=== PATIENT | female | born 1935 | race Caucasian/White ===

== ENCOUNTER 2021-09-16 15:11 | Outpatient (REF) | payer MEDICARE, MEDICAID, SELFPAY ==
[2021-09-16 15:30] LABS: MANUAL DIFF FLAG NO
[2021-09-16 15:33] LABS: Basophils Percent Auto 0.6 % (0-2); Eosinophils Absolute Auto 0.1 X10*3/uL (0.0-0.4); Eosinophils Percent Auto 1.9 % (0-4); Hematocrit 39.4 % (37.0-47.0); Hemoglobin 12.8 g/dl (12.0-16.0); Imm Gran Abs Auto 0.01 X10*3/uL (0.00-0.03); Imm Gran Pct Auto 0.1 % (0.0-0.4); Lymphocytes Absolute Auto 1.6 X10*3/uL (1.2-4.9); Lymphocytes Percent Auto 24.3 % (20-40); Mean Corpuscular HGB Conc 32.5 g/dl (31.0-35.0); Mean Corpuscular Hemoglobin 28.9 pg (27.0-33.0); Mean Corpuscular Volume 88.9 fL (80.0-98.0); Mean Platelet Volume 8.6 fL (9.4-12.3); Monocytes Absolute Auto 0.6 X10*3/uL (0.1-1.2); Monocytes Percent Auto 8.6 % (2-11); Neutrophils Absolute Auto 4.3 x10*3/uL (2.0-8.3); Neutrophils Percent Auto 64.5 % (45-73); Platelet Count 259 X10*3/uL (160-400); Red Blood Count 4.43 X10*6/uL (4.20-5.50); Red Cell Distribution Width 13.9 % (11.0-16.0); White Blood Count 6.7 X10*3/uL (4.8-10.8)
[2021-09-16 15:57] LABS: Alanine Aminotransferase 24 U/L (0-31); Albumin Level 4.3 g/dL (3.5-5.0); Alkaline Phosphatase 124 U/L (39-117); Anion Gap 14 (12-20); Aspartate Amino Transferase 33 U/L (5-31); Bilirubin Total 1.5 mg/dL (0.0-1.0); Blood Urea Nitrogen 21 mg/dL (9-16); Calcium 10.2 mg/dL (8.4-10.2); Carbon Dioxide 23 mmol/L (22-29); Chloride 109 mmol/L (96-108); Cholesterol 230 mg/dL; Estimated Glomerular Filt Rate > 60; Glucose Fasting 94 mg/dL (60-99); HDL Cholesterol 59 mg/dL; LDL Cholesterol Calculated 158 mg/dl; Potassium 3.9 mmol/L (3.3-5.1); Sodium 142 mmol/L (135-145); Triglycerides 66 mg/dL
[2021-09-16 16:12] LABS: Appearance Urine HAZY; Color Urine YELLOW; Glucose Urine UA NEG (NEG); Leukocyte Esterase Urine TRACE (NEG); Nitrite Urine NEG (NEG); Specific Gravity - Urine >= 1.030 (1.005-1.025); UACC Culture Trigger YES; Urine Blood 2+ (NEG); Urine Ketones 40 MG/DL (NEG); Urine Protein NEG (NEG-TRACE)
[2021-09-16 16:20] LABS: TSH reflex Free T4 1.24 uIU/mL (0.32-4.0); Vitamin D 25-OH Total 29.7 ng/mL (>30)
[2021-09-16 16:31] LABS: Folate > 20.0 ng/mL (> or = 4.0); Vitamin B12 817 pg/mL (200-900)
[2021-09-16 16:36] LABS: Bacteria Urine 2+ /LPF; Squamous Epithelial Cell Urine 1+ /LPF
== END 2021-09-16 15:12 | disposition home or self-care (01) ==
LOC: HO.LAB 15:11
PROVIDERS: PCP Internal Medicine; Visit Provider Internal Medicine
DX: E78.00 Pure hypercholesterolemia, unspecified (principal); R20.2 Paresthesia of skin; E55.9 Vitamin D deficiency, unspecified; I10 Essential (primary) hypertension
CPT/HCPCS: 36415; 80053; 80061; 81001; 81003; 82306; 82607; 82746; 84443; 85025; 87086; 87088; 87186

== ENCOUNTER 2021-11-01 18:29 | Emergency (ER) | payer MEDICARE, MEDICAID, SELFPAY ==
--- NOTE | ~2021-11-01 | CT_ITS ---
EXAMINATION: CT ANGIOGRAM NECK WITH CONTRAST CT ANGIOGRAM BRAIN WITH CONTRAST CLINICAL INFORMATION: Cannot move right arm. Can't talk. COMPARISON: Head CT performed earlier today. TECHNIQUE: Test bolus sequences followed by intravenous administration 100 mL of Omnipaque 350. Helical imaging was performed in the axial plane from the thoracic inlet to the skull vertex. Delayed postcontrast imaging of the head was also performed. The data was processed at the nuclear technologist workstation for generation of MIP sequences. Angled MIPs and volume rendered reformatted images were also generated at an offline 3D workstation. Stenoses are assessed in accordance with NASCET criteria unless otherwise indicated. This CT examination was performed using dose optimization techniques as appropriate, variously including the following: *Automated exposure control *Adjustment of mA and/or kV according to patient size (this includes techniques or standardized protocols for targeted exams where dose is matched to indication/reason for exam; i.e. extremities or head) *Use of iterative reconstruction technique DLP: 1468 mGy-cm FINDINGS: Head CT: On the postcontrast images, no intracranial hemorrhage is seen. There is no well-defined territorial infarction. Patchy hypoattenuation in the cerebral white matter most likely reflects sequela of chronic microangiopathy. Mild degree of brain parenchymal volume loss is noted. The extracranial structures are within normal limits. Neck CTA: Atheromatous changes are seen involving the aortic arch. The great vessel origins are patent. The bilateral common carotid arteries are patent. Atheromatous changes are seen at both carotid bifurcations resulting in less than 50% stenosis of the proximal left internal carotid artery and no significant stenosis the proximal right internal carotid artery. The cervical segments of both ICAs are patent. The bilateral vertebral arteries are patent. Head CTA: There is short segment severe stenosis versus nearly occlusive thrombus of the distal left M1 MCA with only threadlike flow across a 1.7 mm segment. The more distal left M1 and M2 segments are patent. The MCA collaterals appear bilaterally symmetric. There is focal mild stenosis of the right anterior M2 division. The ACAs are patent. There is focal mild stenosis of the proximal right A2 STEPHANIE segment with additional milder stenoses seen in the more distal STEPHANIE branches. The vertebral basilar system is patent. There is focal mild to moderate stenosis of the left P1-P2 FELT CARBONIZER junction. No aneurysm is seen. The dural venous sinuses are normally opacified. Non-vascular findings: The cervical soft tissues are within normal limits. There is heterogeneous attenuation of the left lobe of the thyroid gland without well-defined nodule. Mosaic attenuation is seen within the upper lungs. Degenerative changes are seen within the spine. CT/CT angio head neck stroke IMPRESSION: The images are degraded by moderate motion artifact. Focal high-grade stenosis versus nearly occlusive thrombus of the distal left M1 MCA with only threadlike flow across a 1.7 mm segment. Milder stenoses are seen within the intracranial anterior and posterior circulations. No high-grade stenosis within the major neck arteries. This critical result was discussed with Dr. Bazan on 11/01/2021 7:43 PM, and it was ascertained that the content and urgency of the report was understood at the time of direct communication.
--- NOTE | ~2021-11-01 | CT_ITS ---
EXAMINATION: CT HEAD WITHOUT CONTRAST (STROKE PROTOCOL) CLINICAL INFORMATION: Stroke protocol. Cannot move right arm COMPARISON: None TECHNIQUE: Contiguous axial imaging was performed from the skull base to vertex without intravenous administration of contrast. This CT examination was performed using dose optimization techniques as appropriate, variously including the following: *Automated exposure control *Adjustment of mA and/or kV according to patient size (this includes techniques or standardized protocols for targeted exams where dose is matched to indication/reason for exam; i.e. extremities or head) *Use of iterative reconstruction technique DLP: 652 mGy-cm FINDINGS: There is no intracranial hemorrhage, hematoma, or extra-axial fluid collection. The ventricles are normal in size. The lateral ventricles are symmetrical in size but enlarged.. The south-white matter differentiation appears symmetric. There is no acute infarct or mass lesion. The calvarium appears intact. There is no pneumocephalus or orbital emphysema. The visualized sinuses and middle ears and mastoid air cells show no significant mucosal thickening. There are no air-fluid levels. CT/CT head for stroke IMPRESSION: No acute intracranial process seen. Age-related mild cerebral volume loss. This critical result was discussed with Dr. Nohemi Bazan at 7:19 PM on 11/01/2021. It was ascertained that the content and urgency of the report was understood at the time of direct communication.
[2021-11-01 18:36] VITALS: PULSE 89; RESP 16; TEMP 36.9; O2SAT 98; BMI 20.1
--- NOTE | 2021-11-01 19:04 | ECG_ITS ---
Test Reason : STROKE Blood Pressure : / mmHG Vent. Rate : 102 BPM Atrial Rate : 102 BPM P-R Int : 228 ms QRS Dur : 062 ms QT Int : 348 ms P-R-T Axes : 060 -18 012 degrees QTc Int : 453 ms Sinus tachycardia with 1st degree A-V block Otherwise normal ECG No previous ECGs available Referred By: Nohemi Bazan Electronically Signed By:GUANAKITO TAVERA
[2021-11-01 19:05] VITALS: BP 172/84; BMI 17.6
--- NOTE | 2021-11-01 19:10 | ED.NEUROSD ---
HPI - Neuro Symptoms/Deficit General Chief Complaint: Stroke Stated Complaint: mild stroke Time Seen by Provider: 11/01/21 18:43 Source: family and EMS Mode of arrival: EMS Limitations: no limitations History of Present Illness HPI Narrative: Patient comes to the emergency room via EMS. Family reports that the patient has been having intermittent TIA like symptoms since approximately 11:30. Patient has had multiple episodes of intermittent dysarthria, confusion, unable to move her right arm. EMS explains that the family called 4 times for recurrent symptoms. The patient's son tried bringing his mother to the emergency room since 07/16, but the patient has been alert and oriented and refusing to come to the emergency room. Approximately at 05:30, patient became completely mute, unable to move her right arm. EMS was called and patient came to the emergency room approximately at 18:30. Patient was still unable to move her right arm, unable to speak. According to the family, patient has never had the symptoms before. CT scan was done, which showed no acute pathology. While we were waiting for the CT to be done, patient started talking and moving her extremities at baseline. 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 Related Data Previous Rx's Medication Instructions Recorded cholecalciferol (vitamin D3) 50 50 mcg PO DAILY 90 Days #90 tab 12/19/20 mcg (2,000 unit) tablet lisinopril 10 mg tablet 10 mg PO BID #60 cap 08/23/21 acetaminophen 500 mg tablet 500 mg PO Q8H PRN 30 Days #90 tab 09/16/21 Allergies Allergy/AdvReac Type Severity Reaction Status Date / Time No Known Allergies Allergy Verified 09/23/21 03:47 Review of Systems Review of Systems: Yes Unobtainable due to mental condition [facility] Past Medical History Medical History Benign essential hypertension Lumbar degenerative disc disease Pure hypercholesterolemia Vitamin D deficiency Surgical History History of eye surgery Family History Family History Other Family history non-contributory Social History Social History Housing: House Alcohol intake: never Patient Tobacco Use Status: Never used Tobacco Second Hand Smoke Exposure: Yes Use of substances other than those prescribed or required for medical reasons: No Advance Directives: No service: No Current occupational status: retired Physical Exam Vital Signs: Vital Signs: Last Vital Signs Temp 99.7 F 11/01/21 19:54 Pulse 98 11/01/21 20:46 Resp 18 11/01/21 20:46 BP 176/80 H 11/01/21 20:46 Pulse Ox 97 11/01/21 20:46 BMI result Body Mass Index 17.6 Const: Other: Appearance: Alert. Unable to speak Eyes: Pupils equal, round and reactive to light. ENT: Pharynx normal. Neck: Normal inspection. Neck supple. No lymph nodes noted. No crepitus CVS: Normal heart rate and rhythm. Pulses normal. Normal S1 and S2 Respiratory: No respiratory distress. Breath sounds normal. No Wheezing. No rales Abdomen: Soft and nontender. No rigidity. No distention. Skin: Skin warm and dry. Normal skin color. Normal skin turgor. Extremities: No lower extremity edema. Neuro: Patient has mute aphasia, patient is unable to lift her right arm, no effort. Patient is able to move bilateral lower extremities, patient is able to follow commands but seems confused. Psych: calm, cooperative Course Course Course Narrative: When patient arrived to the emergency room, patient's blood pressure was 190 systolic. We gave 1 dose of labetalol would waiting for the report of the CT scan, in case we needed to lower the blood pressure to give tPA. I discussed the patient and the CT scan with Dr. Lei, it is possible that patient may be having seizures versus an MCA thrombus. [facility] called with the results of the CTA, patient has severe stenosis versus a clot in the left distal segment of M1. I discussed the patient with from endovascular at [facility]. At this time, patient will not undergo any procedure, however patient will be transferred to [facility]. At this time, we will not give any further antihypertensive medications. Patient remains awake, alert, moving all extremities and speaking. I discussed the above-mentioned with the patient's family, her son. Aware of the plan and transfer. Patient is agitated, given 0.5mg ativan pt accepted by Dr. Schmitz [facility] - Neuro Symptoms/Deficit Lab Data Result diagrams: 11/01/21 19:51 11/01/21 19:51 Labs: Lab Results 11/01/21 11/01/21 11/01/21 Range/Units 19:51 19:51 19:51 WBC 7.9 (4.8-10.8) X10*3/uL RBC 4.58 (4.20-5.50) X10*6/uL Hgb 13.2 (12.0-16.0) g/dl Hct 40.6 (37.0-47.0) % MCV 88.6 (80.0-98.0) fL MCH 28.8 (27.0-33.0) pg MCHC 32.5 (31.0-35.0) g/dl RDW 13.5 (11.0-16.0) % Plt Count 252 (160-400) X10*3/uL MPV 8.9 L (9.4-12.3) fL Immature Gran % (Auto) 0.4 (0.0-0.4) % Neut % (Auto) 79.4 H (45-73) % Lymph % (Auto) 13.1 L (20-40) % Bertie % (Auto) 6.2 (2-11) % Eos % (Auto) 0.4 (0-4) % Baso % (Auto) 0.5 (0-2) % Lymph # (Auto) 1.0 L (1.2-4.9) X10*3/uL Bertie # (Auto) 0.5 (0.1-1.2) X10*3/uL Eos # (Auto) 0.0 (0.0-0.4) X10*3/uL Baso # (Auto) 0.0 (0.0-0.2) X10*3/uL Abs Immat Gran (auto) 0.03 (0.00-0.03) X10*3/uL Absolute Neuts (auto) 6.2 (2.0-8.3) x10*3/uL Absolute Nucleated RBC 0.000 (0.0-0.012) X10*3/uL Nucleated RBC % (auto) 0.0 (0.0-0.2) /100WBC PT 12.2 (9.9-13.0) SEC INR 1.1 (0.9-1.1) Sodium 139 (135-145) mmol/L Potassium 3.8 (3.3-5.1) mmol/L Chloride 106 (96-108) mmol/L Carbon Dioxide 19 L (22-29) mmol/L Anion Gap 18 (12-20) BUN 18 H (9-16) mg/dL Creatinine 0.77 (0.5-1.4) mg/dL Estim Creat Clear Calc 37.5 Estimated GFR > 60 Random Glucose 98 (60-115) mg/dL Lactic Acid (0.5-2.0) mmol/L Calcium 10.6 H (8.4-10.2) mg/dL Total Bilirubin 1.3 H (0.0-1.0) mg/dL Direct Bilirubin 0.4 (0.0-0.5) mg/dL AST 27 (5-31) U/L ALT 24 (0-31) U/L Alkaline Phosphatase 108 (39-117) U/L Troponin I High Sens (<3.5-17.0) ng/L Total Protein 7.1 (6.5-8.0) g/dL Albumin 4.4 (3.5-5.0) g/dL Urine Color Urine Appearance Urine pH (5.0-8.0) Ur Specific [place] (1.005-1.025) Urine Protein (NEG-TRACE) MG/DL Urine Glucose (UA) (NEG) MG/DL Urine Ketones (NEG) MG/DL Urine Blood (NEG) Urine Nitrite (NEG) Ur Leukocyte Esterase (NEG) Urine RBC (0) /HPF Urine WBC (0-4) /HPF Ur Squamous Epith Cells /LPF Urine Bacteria /LPF Urine Opiates Screen (Not Detect) Urine Fentanyl Screen (Not Detect) Ur Barbiturates Screen (Not Detect) Ur Phencyclidine Scrn (Not Detect) Ur Amphetamines Screen (Not Detect) U Benzodiazepines Scrn (Not Detect) Urine Cocaine Screen (Not Detect) U Marijuana (THC) Screen (Not Detect) COVID-19 (ALEYDA) (Negative) COVID-19 Clin Com 11/01/21 11/01/21 11/01/21 Range/Units 19:51 19:51 19:51 WBC (4.8-10.8) X10*3/uL RBC (4.20-5.50) X10*6/uL Hgb (12.0-16.0) g/dl Hct (37.0-47.0) % MCV (80.0-98.0) fL MCH (27.0-33.0) pg MCHC (31.0-35.0) g/dl RDW (11.0-16.0) % Plt Count (160-400) X10*3/uL MPV (9.4-12.3) fL Immature Gran % (Auto) (0.0-0.4) % Neut % (Auto) (45-73) % Lymph % (Auto) (20-40) % Bertie % (Auto) (2-11) % Eos % (Auto) (0-4) % Baso % (Auto) (0-2) % Lymph # (Auto) (1.2-4.9) X10*3/uL Bertie # (Auto) (0.1-1.2) X10*3/uL Eos # (Auto) (0.0-0.4) X10*3/uL Baso # (Auto) (0.0-0.2) X10*3/uL Abs Immat Gran (auto) (0.00-0.03) X10*3/uL Absolute Neuts (auto) (2.0-8.3) x10*3/uL Absolute Nucleated RBC (0.0-0.012) X10*3/uL Nucleated RBC % (auto) (0.0-0.2) /100WBC PT (9.9-13.0) SEC INR (0.9-1.1) Sodium (135-145) mmol/L Potassium (3.3-5.1) mmol/L Chloride (96-108) mmol/L Carbon Dioxide (22-29) mmol/L Anion Gap (12-20) BUN (9-16) mg/dL Creatinine (0.5-1.4) mg/dL Estim Creat Clear Calc Estimated GFR Random Glucose (60-115) mg/dL Lactic Acid 1.7 (0.5-2.0) mmol/L Calcium (8.4-10.2) mg/dL Total Bilirubin (0.0-1.0) mg/dL Direct Bilirubin (0.0-0.5) mg/dL AST (5-31) U/L ALT (0-31) U/L Alkaline Phosphatase (39-117) U/L Troponin I High Sens 26.2 H (<3.5-17.0) ng/L Total Protein (6.5-8.0) g/dL Albumin (3.5-5.0) g/dL Urine Color Urine Appearance Urine pH (5.0-8.0) Ur Specific [place] (1.005-1.025) Urine Protein (NEG-TRACE) MG/DL Urine Glucose (UA) (NEG) MG/DL Urine Ketones (NEG) MG/DL Urine Blood (NEG) Urine Nitrite (NEG) Ur Leukocyte Esterase (NEG) Urine RBC (0) /HPF Urine WBC (0-4) /HPF Ur Squamous Epith Cells /LPF Urine Bacteria /LPF Urine Opiates Screen (Not Detect) Urine Fentanyl Screen (Not Detect) Ur Barbiturates Screen (Not Detect) Ur Phencyclidine Scrn (Not Detect) Ur Amphetamines Screen (Not Detect) U Benzodiazepines Scrn (Not Detect) Urine Cocaine Screen (Not Detect) U Marijuana (THC) Screen (Not Detect) COVID-19 (ALEYDA) Negative (Negative) COVID-19 Clin Com See Note 11/01/21 11/01/21 Range/Units 19:54 19:54 WBC (4.8-10.8) X10*3/uL RBC (4.20-5.50) X10*6/uL Hgb (12.0-16.0) g/dl Hct (37.0-47.0) % MCV (80.0-98.0) fL MCH (27.0-33.0) pg MCHC (31.0-35.0) g/dl RDW (11.0-16.0) % Plt Count (160-400) X10*3/uL MPV (9.4-12.3) fL Immature Gran % (Auto) (0.0-0.4) % Neut % (Auto) (45-73) % Lymph % (Auto) (20-40) % Bertie % (Auto) (2-11) % Eos % (Auto) (0-4) % Baso % (Auto) (0-2) % Lymph # (Auto) (1.2-4.9) X10*3/uL Bertie # (Auto) (0.1-1.2) X10*3/uL Eos # (Auto) (0.0-0.4) X10*3/uL Baso # (Auto) (0.0-0.2) X10*3/uL Abs Immat Gran (auto) (0.00-0.03) X10*3/uL Absolute Neuts (auto) (2.0-8.3) x10*3/uL Absolute Nucleated RBC (0.0-0.012) X10*3/uL Nucleated RBC % (auto) (0.0-0.2) /100WBC PT (9.9-13.0) SEC INR (0.9-1.1) Sodium (135-145) mmol/L Potassium (3.3-5.1) mmol/L Chloride (96-108) mmol/L Carbon Dioxide (22-29) mmol/L Anion Gap (12-20) BUN (9-16) mg/dL Creatinine (0.5-1.4) mg/dL Estim Creat Clear Calc Estimated GFR Random Glucose (60-115) mg/dL Lactic Acid (0.5-2.0) mmol/L Calcium (8.4-10.2) mg/dL Total Bilirubin (0.0-1.0) mg/dL Direct Bilirubin (0.0-0.5) mg/dL AST (5-31) U/L ALT (0-31) U/L Alkaline Phosphatase (39-117) U/L Troponin I High Sens (<3.5-17.0) ng/L Total Protein (6.5-8.0) g/dL Albumin (3.5-5.0) g/dL Urine Color STRAW Urine Appearance CLEAR Urine pH 6.5 (5.0-8.0) Ur Specific [place] 1.010 (1.005-1.025) Urine Protein NEG (NEG-TRACE) MG/DL Urine Glucose (UA) NEG (NEG) MG/DL Urine Ketones NEG (NEG) MG/DL Urine Blood 2+ H (NEG) Urine Nitrite NEG (NEG) Ur Leukocyte Esterase 2+ H (NEG) Urine RBC 5-9 H (0) /HPF Urine WBC 10-14 H (0-4) /HPF Ur Squamous Epith Cells TRACE /LPF Urine Bacteria 1+ /LPF Urine Opiates Screen Not Detected (Not Detect) Urine Fentanyl Screen Not Detected (Not Detect) Ur Barbiturates Screen Not Detected (Not Detect) Ur Phencyclidine Scrn Not Detected (Not Detect) Ur Amphetamines Screen Not Detected (Not Detect) U Benzodiazepines Scrn Not Detected (Not Detect) Urine Cocaine Screen Not Detected (Not Detect) U Marijuana (THC) Screen Not Detected (Not Detect) COVID-19 (ALEYDA) (Negative) COVID-19 Clin Com Imaging Data Head CT: Radiologist's impression: FINDINGS: There is no intracranial hemorrhage, hematoma, or extra-axial fluid collection.? The ventricles are normal in size. The lateral ventricles are symmetrical in size but enlarged..? The south-white matter differentiation appears symmetric. There is no acute infarct or mass lesion. The calvarium appears intact. There is no pneumocephalus or orbital emphysema.? The visualized sinuses and middle ears and mastoid air cells show no significant mucosal thickening. There are no air-fluid levels. CT/CT head for stroke IMPRESSION: No acute intracranial process seen. ? Age-related mild cerebral volume loss. CTA of head and neck: Radiologist's impression: FINDINGS: Head CT: On the postcontrast images, no intracranial hemorrhage is seen. There is no well-defined territorial infarction. Patchy hypoattenuation in the cerebral white matter most likely reflects sequela of chronic microangiopathy. Mild degree of brain parenchymal volume loss is noted. The extracranial structures are within normal limits. Neck CTA: Atheromatous changes are seen involving the aortic arch. The great vessel origins are patent. The bilateral common carotid arteries are patent. Atheromatous changes are seen at both carotid bifurcations resulting in less than 50% stenosis of the proximal left internal carotid artery and no significant stenosis the proximal right internal carotid artery. The cervical segments of both ICAs are patent. The bilateral vertebral arteries are patent. Head CTA: There is short segment severe stenosis versus nearly occlusive thrombus of the distal left M1 MCA with only threadlike flow across a 1.7 mm segment. The more distal left M1 and M2 segments are patent. The MCA collaterals appear bilaterally symmetric. There is focal mild stenosis of the right anterior M2 division. The ACAs are patent. There is focal mild stenosis of the proximal right A2 STEPHANIE segment with additional milder stenoses seen in the more distal STEPHANIE branches. The vertebral basilar system is patent. 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 No aneurysm is seen. The dural venous sinuses are normally opacified. Non-vascular findings: The cervical soft tissues are within normal limits. There is heterogeneous attenuation of the left lobe of the thyroid gland without well-defined nodule. Mosaic attenuation is seen within the upper lungs. Degenerative changes are seen within the spine. CT/CT angio head? neck stroke IMPRESSION: The images are degraded by moderate motion artifact. Focal high-grade stenosis versus nearly occlusive thrombus of the distal left M1 MCA with only threadlike flow across a 1.7 mm segment. Milder stenoses are seen within the intracranial anterior and posterior circulations. ? No high-grade stenosis within the major neck arteries. NIH Stroke Scale Level of Consciousness: Alert Level of Consciousness Questions: Answers one question correctly Level of Consciousness Commands: Performs both tasks correctly Best Gaze: Normal Visual: No visual loss Facial Palsy: Normal Motor Arm (Right): No effort against gravity Motor Arm (Left): No drift Motor Leg (Right): No drift Motor Leg (Left): No drift Limb Ataxia: Absent Sensory: Normal Best Language: Mute, global aphasia Dysarthia: Severe dysarthria Extinction and Inattention: No abnormality Score: 9 Critical Care Time Critical Care Time Critical Care Time: Yes Total Critical Care Time: 60 Attestation: I have personally provided critical care time. Time includes review of lab data, radiology results, discussion with consultants, and monitoring for potential decompensation. Intervention performed as documented. 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
--- NOTE | 2021-11-01 19:31 | PC.NURSE ---
While in CT patient began speaking and moving upper extremities equally. Dr. Bazan aware of change.
[2021-11-01] MEDS: iohexoL 350 MG/ML 100 ML INFUS..BTL IV (19:46)
[2021-11-01 19:54] VITALS: BP 189/97; PULSE 120; RESP 20; TEMP 37.6; O2SAT 97
[2021-11-01] MEDS: Labetalol HCL 100 MG/20 ML VIAL 10 MG IVPUSH (19:56)
[2021-11-01 19:57] LABS: MANUAL DIFF FLAG NO
[2021-11-01 19:58] LABS: Basophils Percent Auto 0.5 % (0-2); Eosinophils Percent Auto 0.4 % (0-4); Hematocrit 40.6 % (37.0-47.0); Hemoglobin 13.2 g/dl (12.0-16.0); Imm Gran Abs Auto 0.03 X10*3/uL (0.00-0.03); Imm Gran Pct Auto 0.4 % (0.0-0.4); Lymphocytes Percent Auto 13.1 % (20-40); Mean Corpuscular HGB Conc 32.5 g/dl (31.0-35.0); Mean Corpuscular Hemoglobin 28.8 pg (27.0-33.0); Mean Corpuscular Volume 88.6 fL (80.0-98.0); Mean Platelet Volume 8.9 fL (9.4-12.3); Monocytes Absolute Auto 0.5 X10*3/uL (0.1-1.2); Monocytes Percent Auto 6.2 % (2-11); Neutrophils Absolute Auto 6.2 x10*3/uL (2.0-8.3); Neutrophils Percent Auto 79.4 % (45-73); Platelet Count 252 X10*3/uL (160-400); Red Blood Count 4.58 X10*6/uL (4.20-5.50); Red Cell Distribution Width 13.5 % (11.0-16.0); White Blood Count 7.9 X10*3/uL (4.8-10.8)
[2021-11-01 20:00] LABS: Appearance Urine CLEAR; Color Urine STRAW; Glucose Urine UA NEG (NEG); Leukocyte Esterase Urine 2+ (NEG); Nitrite Urine NEG (NEG); PH 6.5 (5.0-8.0); UACC Culture Trigger YES; Urine Blood 2+ (NEG); Urine Ketones NEG (NEG); Urine Protein NEG (NEG-TRACE)
[2021-11-01 20:03] LABS: INTERNATIONAL NORM RATIO 1.1 (0.9-1.1); Prothrombin Time 12.2 SEC (9.9-13.0)
[2021-11-01 20:08] VITALS: BP 162/102; PULSE 98; RESP 20; O2SAT 95
[2021-11-01 20:09] LABS: Bacteria Urine 1+ /LPF; Squamous Epithelial Cell Urine TRACE /LPF
[2021-11-01 20:10] LABS: Lactic Acid 1.7 mmol/L (0.5-2.0)
[2021-11-01 20:12] LABS: COVID-19 Test Negative (Negative)
[2021-11-01 20:17] LABS: Amphetamine Screen Urine Not Detected (Not Detect); Barbiturates, Urine Not Detected (Not Detect); Benzodiazepines Screen Urine Not Detected (Not Detect); Cannabinoid Screen Urine Not Detected (Not Detect); Cocaine Screen Urine Not Detected (Not Detect); Fentanyl, urine Not Detected (Not Detect); Opiate Screen Urine Not Detected (Not Detect); Phencyclidine Screen Urine Not Detected (Not Detect)
[2021-11-01 20:18] LABS: Troponin-I High Sensitivity 26.2 ng/L (<3.5-17.0)
[2021-11-01 20:19] LABS: Alanine Aminotransferase 24 U/L (0-31); Albumin Level 4.4 g/dL (3.5-5.0); Alkaline Phosphatase 108 U/L (39-117); Anion Gap 18 (12-20); Aspartate Amino Transferase 27 U/L (5-31); Bilirubin Direct 0.4 mg/dL (0.0-0.5); Bilirubin Total 1.3 mg/dL (0.0-1.0); Blood Urea Nitrogen 18 mg/dL (9-16); Calcium 10.6 mg/dL (8.4-10.2); Carbon Dioxide 19 mmol/L (22-29); Chloride 106 mmol/L (96-108); Creatinine Clr Calc Pharmacy 37.5; Estimated Glomerular Filt Rate > 60; Glucose Random 98 mg/dL (60-115); Potassium 3.8 mmol/L (3.3-5.1); Sodium 139 mmol/L (135-145); Total Protein 7.1 g/dL (6.5-8.0)
[2021-11-01 20:46] VITALS: BP 176/80; PULSE 98; RESP 18; O2SAT 97
--- NOTE | 2021-11-01 20:54 | MHC.STROKE ---
1857 NOTIFIED BY ED STROKE PROTOCOL ACTIVATED PATIENT ARRIVED WALK-IN AT 1829. ONSET OF RIGHT ARM WEAKNESS, CONFUSION AND DYSARTHRIA THAT STARTED AT 11:[address] KURTZ'S SEE HER NOTE. NIHSS = 9, DIRECT TO CTH AND CTA H/N STAT. NO BLEED, +LVO LEFT M1. DR CARTER CALLED, [facility] ALSO CALLED FOR POSSIBLE THROMBECTOMY CASE. PATIENT FAILED SWALLOW AND WILL BE KEPT NPO.
[2021-11-01] MEDS: LORazepam 2 MG/ML VIAL 0.5 MG IVPUSH (21:08)
--- NOTE | 2021-11-01 21:38 | PC.NURSE ---
report given to Cruzito MATA at [facility]
[2021-11-04 07:38] LABS: Prothrombin Time Whole Bld POC 11.1 sec (11.1-13.5); ~PT, ~INR - Anti Coag Clinic 0.9 (0.9-1.1)
== END 2021-11-01 21:39 | disposition short-term general hospital (02) ==
PROVIDERS: Emergency Provider Emergency Medicine; PCP Internal Medicine
DX: I63.412 Cerebral infarction due to embolism of left middle cerebral artery (principal); R47.01 Aphasia; G81.91 Hemiplegia, unspecified affecting right dominant side; R29.709 NIHSS score 9; Z20.822 Contact with and (suspected) exposure to COVID-19
CPT/HCPCS: 36415; 70450; 70496; 70498; 80048; 80076; 80307; 81001; 81003; 83605; 84484; 85025; 85610; 87086; 87088; 87186; 87635; 93005; 96374; 96375; 99285; 99291; J2060; Q9967

== ENCOUNTER → 2022-01-14 11:24 | Outpatient (BNVA) | payer MEDICARE, MEDICAID, SELFPAY | PROVIDERS: PCP Internal Medicine; Visit Provider Surgery Vascular Surgery | DX: R20.0 Anesthesia of skin (principal); I73.00 Raynaud's syndrome without gangrene | CPT/HCPCS: 99202 ==

== ENCOUNTER 2022-05-25 13:09 | Inpatient (IN) | payer MEDICARE, MEDICAID, SELFPAY ==
[2022-05-25] VITALS (7 sets, daily range): BP systolic 108–191; BP diastolic 62–104; PULSE 95–110; RESP 16–22; TEMP 36.4–37.2; O2SAT 95–99; BMI 18.5
--- NOTE | ~2022-05-25 | US_ITS ---
EXAMINATION:US pelvic complete CLINICAL INFORMATION: Reason for Exam heavy vaginal bleeding
--- NOTE | 2022-05-25 13:33 | ED_ITS ---
HPI - General Adult General Chief complaint: General Medical Stated complaint: Vaginal bleeding Time Seen by Provider: 05/25/22 13:32 Source: patient and family Mode of arrival: ambulatory Limitations: no limitations History of Present Illness HPI narrative: 87-year-old female history of hypercholesterolemia, hypertension, CVA currently on Plavix and aspirin, Raynaud's presenting to the emergency department with complaints of vaginal, rectal bleeding, palpitations, abd pain and ligtheadedness x2 and half days. Patient reports that this has been gradually worsening over the past few days. Tells me she is having associated suprapubic abdominal pain. Patient tells me she has been feeling sort of lightheaded and has been experiencing palpitations. Tells me this is never happened to her before. Denies any history of malignancy. No known automatic steel tie adjuster abnormalities. Patient denies chest pain, shortness of breath, nausea, vomiting, headache, fevers, chills. Patient is constantly changing her pad every few hours. Unable to quantify how many times however they are completely saturated when they are being changed. Related Data Previous Rx's Medication Instructions Recorded cholecalciferol (vitamin D3) 50 50 mcg PO DAILY 90 days #90 tabs 12/25/21 mcg (2,000 unit) tablet aspirin 81 mg tablet,delayed 81 mg PO DAILY #30 tabs 02/24/22 release atorvastatin 40 mg tablet 40 mg PO BEDTIME #30 tabs 02/24/22 clopidogrel 75 mg tablet 75 mg PO DAILY #30 tabs 02/24/22 Allergies Allergy/AdvReac Type Severity Reaction Status Date / Time No Known Allergies Allergy Verified 01/14/22 11:34 Review of Systems Review of Systems: Constitutional : No Weight loss, No Fever, No Chills, No Fatigue, No Malaise ENT/Mouth : No sore throat, No Rhinorrhea Eyes: No Eye Pain, No Swelling, No Redness Cardiovascular : No Chest Pain, No SOB, No Dyspnea on Exertion, No Orthopnea, No Edema, No Palpitations Respiratory : No Cough, No Sputum, No Wheezing Gastrointestinal : No Nausea, No Vomiting, No Diarrhea, No Constipation, No abdominal Pain, No Hematochezia, No Melena Genitourinary : No Dysuria, No Urinary Frequency, No Hematuria, Musculoskeletal : No joint pain, No Myalgias, No Joint Swelling Skin : No Skin Lesions, No rash Neuro : No Weakness, No Numbness, No Dizziness, No Headache Psych : No Anxiety/Panic, No Depression All other systems reviewed and are negative Yes all other systems are reviewed and are negative [facility] Past Medical History Attestation statement: The following information was validated with the patient. Source: old records reviewed and nursing notes reviewed Medical History Benign essential hypertension Lumbar degenerative disc disease Pure hypercholesterolemia Vitamin D deficiency Surgical History (Reviewed 05/25/22 @ 17: by Ashwin Roman MD) History of eye surgery Family History Family History (Reviewed 05/25/22 @ 17: by Ashwin Roman MD) Other Family history non-contributory Social History Social History (Reviewed 05/25/22 @ 17: by Ashwin Roman MD) Housing: House Alcohol intake: never Patient Tobacco Use Status: Never used Tobacco e-Cigarette/Vaping Use: Never Used Second Hand Smoke Exposure: Yes Advance Directives: Yes Advance Directives Information Provided: No Advance Directives on File: No service: No Current occupational status: retired Cognitive needs: No Hearing needs: No Vision needs: No Physical Exam ED Vital Signs: Vital Signs - 24 hr 05/25/22 13:13 05/25/22 13:43 05/25/22 18:28 Temperature 97.5 F 98.2 F Pulse Rate 110 H 102 H 107 H Respiratory Rate 18 18 22 H Blood Pressure 108/90 H 114/62 191/104 H Pulse Oximetry 99 95 Oxygen Delivery Method Room Air Room Air BMI result Body Mass Index 18.5 vss Appearance: Alert.? Oriented X3.? No acute distress.? Head: Normocephalic, atraumatic, no step-offs or deformities Eyes: Pupils equal, round and reactive to light.? ENT: Pharynx normal.? Neck: Normal inspection.? Neck supple.? CVS: Normal heart rate and rhythm.? Pulses normal.? Respiratory: No respiratory distress.? Breath sounds normal.? Abdomen: Soft and nontender.? Skin: Skin warm and dry.? Normal skin color.? Normal skin turgor.? Palor noted throughout Extremities: No lower extremity edema.? No calf ttp. Global weakness Rectal: bright red blood noted in stool, OBS obtained, normal rectal tone Vaginal: bright red blood in vaginal canal active bleeding discomfort w/ adnexal palpation b/l. Unable to tolerate pelvic- speculum Neuro: Oriented X 3.? No motor deficit.? No sensory deficit. CN 2-12 intact Course Reevaluation(s) Reevaluation #1: Spoke to OBGYN who tells me other causes must be ruled out, OBGYN causes would include polyps, malignancy, recommends pelvic transvaginal ultrasound as well as repeating CBC and transfusing as necessary. Other etiology should be considered per OBGYN. CBC showing a normocytic anemia likely secondary to acute blood loss, chemistry with no acute electrolyte abnormalities requiring intervention. [place] DIC Time: 14:53 Reevaluation #2: Since patient has been here she has changed her pad 4 times. Repeat CBC showing a drop in hemoglobin and hematocrit, steadily dropping and patient is symptomatic with dizziness, palpitations, therefore blood transfusion will be ordered. Discussed risks versus benefits with daughter and patient. Obtained verbal consent and putting written consent in the chart as well. Answered all questions regarding transfusions. Patient and family comfortable with this plan. Will continue to monitor. To note, patient also had a positive OBS however could be contaminated from bleeding from vagina or urethra. Time: 15:25 Reevaluation #3: at the bedside Time: 16:15 Additional Reevaluation(s): [address] Chang, NPO at this time will need cystoscopy tonight. Recommends 20 G henry with irrigation. Would like patient admitted to hospital. I comm unicated these request with nursing. Dr. Roman recommends out patient MRI on this patient she may need an endometrial bx at some point. Most likely blood coming from bladder less like uterine. 1715 Hospitalist came in to evaluate patient and admit patient, patient stating she would like to go home, stating she does not on a cystoscopy. Refusing for us to change her Henry catheter, or administer blood at this time. Initially verbal consent was obtained and consent was also obtained from patient's sister. At this time patient is refusing and would like to speak to the surgeon. 1801 Patient continues to refuse everything, the repeat CBC with slight improvement, patient agitated and states she would like to go home and would not mind dying at home in a few weeks. I explained to patient the risks and benefits associated with leaving, she verbalizes understanding, agreeable to wait for surgeon to discuss cystoscopy 193 Patient allowed for Urology to place a three-way CBI, an 20 gauge Henry catheter. Now again agreeable to transfusion and hospital admission. At this time will admit patient to the hospitalist team. Medical Decision Making MDM Narrative Medical decision making narrative: 1400 87-year-old female presents with what she thinks is heavy vaginal and rectal bleeding as well as suprapubic abdominal pain x2 and half days worsening. Patient Irish speaking refusing an patient transporter, family used for interpretation. In nursing no it is noted that somebody wrote that a family member reported slurred speech however no complaints of at this time, denies. Upon physical examination there is clearly vaginal bleeding and blood noted upon rectal exam. Pain to suprapubic region. Rapid rate regular rhythm. Lungs are clear. Neuro nonfocal. Patient with normal speech at this time. Concerns for lower gi bleed, malignancy, DIC, polyps, hypercoagulable disorders Plan- rectal, labs, UA, ekg, type and screen, gi bleeding studies, pelvic, rectal exam, OBS Medical Records Medical records reviewed: Yes I reviewed the patient's medical records. Lab Data Lab results reviewed: Yes I reviewed the patient's lab results. Result diagrams: 05/25/22 17:32 05/25/22 15:07 Labs: Lab Results 05/25/22 05/25/22 05/25/22 Range/Units 13:42 13:42 13:42 WBC 8.5 (4.8-10.8) X10*3/uL RBC 3.28 L D (4.20-5.50) X10*6/uL Hgb 9.4 L D (12.0-16.0) g/dl Hct 28.4 L D (37.0-47.0) % MCV 86.6 (80.0-98.0) fL MCH 28.7 (27.0-33.0) pg MCHC 33.1 (31.0-35.0) g/dl RDW 14.4 (11.0-16.0) % Plt Count 235 (160-400) X10*3/uL MPV 8.7 L (9.4-12.3) fL Immature Gran % (Auto) 0.6 H (0.0-0.4) % Neut % (Auto) 88.4 H (45-73) % Lymph % (Auto) 6.4 L (20-40) % [place] % (Auto) 4.1 (2-11) % Eos % (Auto) 0.1 (0-4) % Baso % (Auto) 0.4 (0-2) % Lymph # (Auto) 0.5 L (1.2-4.9) X10*3/uL [place] # (Auto) 0.4 (0.1-1.2) X10*3/uL Eos # (Auto) 0.0 (0.0-0.4) X10*3/uL Baso # (Auto) 0.0 (0.0-0.2) X10*3/uL Abs Immat Gran (auto) 0.05 H (0.00-0.03) X10*3/uL Absolute Neuts (auto) 7.5 (2.0-8.3) x10*3/uL Absolute Nucleated RBC 0.000 (0.0-0.012) X10*3/uL Nucleated RBC % (auto) 0.0 (0.0-0.2) /100WBC PT (10.0-13.1) SEC INR (0.9-1.1) Sodium 142 (135-145) mmol/L Potassium 3.5 (3.3-5.1) mmol/L Chloride 107 (96-108) mmol/L Carbon Dioxide 21 L (22-29) mmol/L Anion Gap 18 (12-20) BUN 32 H D (9-16) mg/dL Creatinine 0.88 (0.5-1.4) mg/dL Estim Creat Clear Calc 32.7 Estimated GFR > 60 Random Glucose 110 (60-115) mg/dL Calcium 9.7 D (8.4-10.2) mg/dL Magnesium 1.8 (1.6-2.6) mg/dL Total Bilirubin 1.4 H (0.0-1.0) mg/dL AST 30 (5-31) U/L ALT 20 (0-31) U/L Alkaline Phosphatase 98 (39-117) U/L Total Protein 6.3 L (6.5-8.0) g/dL Albumin 4.1 (3.5-5.0) g/dL Stool Occult Blood (NEGATIVE) COVID-19 (ALEYDA) Negative (Negative) COVID-19 Clin Com See Note Blood Type Antibody Screen Crossmatch 05/25/22 05/25/22 05/25/22 Range/Units 14:25 15:07 15:07 WBC 8.9 (4.8-10.8) X10*3/uL RBC 3.07 L (4.20-5.50) X10*6/uL Hgb 8.8 L (12.0-16.0) g/dl Hct 26.5 L (37.0-47.0) % MCV 86.3 (80.0-98.0) fL MCH 28.7 (27.0-33.0) pg MCHC 33.2 (31.0-35.0) g/dl RDW 14.3 (11.0-16.0) % Plt Count 191 (160-400) X10*3/uL MPV 8.8 L (9.4-12.3) fL Immature Gran % (Auto) 0.5 H (0.0-0.4) % Neut % (Auto) 89.2 H (45-73) % Lymph % (Auto) 5.6 L (20-40) % [place] % (Auto) 4.3 (2-11) % Eos % (Auto) 0.1 (0-4) % Baso % (Auto) 0.3 (0-2) % Lymph # (Auto) 0.5 L (1.2-4.9) X10*3/uL [place] # (Auto) 0.4 (0.1-1.2) X10*3/uL Eos # (Auto) 0.0 (0.0-0.4) X10*3/uL Baso # (Auto) 0.0 (0.0-0.2) X10*3/uL Abs Immat Gran (auto) 0.04 H (0.00-0.03) X10*3/uL Absolute Neuts (auto) 7.9 (2.0-8.3) x10*3/uL Absolute Nucleated RBC 0.000 (0.0-0.012) X10*3/uL Nucleated RBC % (auto) 0.0 (0.0-0.2) /100WBC PT 13.0 (10.0-13.1) SEC INR 1.1 (0.9-1.1) Sodium 141 (135-145) mmol/L Potassium 3.3 (3.3-5.1) mmol/L Chloride 108 (96-108) mmol/L Carbon Dioxide 22 (22-29) mmol/L Anion Gap 14 (12-20) BUN 31 H (9-16) mg/dL Creatinine 0.74 (0.5-1.4) mg/dL Estim Creat Clear Calc 38.9 Estimated GFR > 60 Random Glucose 81 (60-115) mg/dL Calcium 9.0 D (8.4-10.2) mg/dL Magnesium (1.6-2.6) mg/dL Total Bilirubin 1.2 H (0.0-1.0) mg/dL AST 25 (5-31) U/L ALT 17 (0-31) U/L Alkaline Phosphatase 84 (39-117) U/L Total Protein 5.4 L (6.5-8.0) g/dL Albumin 3.6 (3.5-5.0) g/dL Stool Occult Blood (NEGATIVE) COVID-19 (ALEYDA) (Negative) COVID-19 Clin Com Blood Type Antibody Screen Crossmatch 05/25/22 05/25/22 05/25/22 Range/Units 15:07 15:07 17:32 WBC 9.7 (4.8-10.8) X10*3/uL RBC 3.24 L (4.20-5.50) X10*6/uL Hgb 9.2 L (12.0-16.0) g/dl Hct 27.8 L (37.0-47.0) % MCV 85.8 (80.0-98.0) fL MCH 28.4 (27.0-33.0) pg MCHC 33.1 (31.0-35.0) g/dl RDW 14.5 (11.0-16.0) % Plt Count 197 (160-400) X10*3/uL MPV 8.8 L (9.4-12.3) fL Immature Gran % (Auto) 0.3 (0.0-0.4) % Neut % (Auto) 82.8 H (45-73) % Lymph % (Auto) 9.7 L (20-40) % [place] % (Auto) 6.8 (2-11) % Eos % (Auto) 0.1 (0-4) % Baso % (Auto) 0.3 (0-2) % Lymph # (Auto) 0.9 L (1.2-4.9) X10*3/uL [place] # (Auto) 0.7 (0.1-1.2) X10*3/uL Eos # (Auto) 0.0 (0.0-0.4) X10*3/uL Baso # (Auto) 0.0 (0.0-0.2) X10*3/uL Abs Immat Gran (auto) 0.03 (0.00-0.03) X10*3/uL Absolute Neuts (auto) 8.0 (2.0-8.3) x10*3/uL Absolute Nucleated RBC 0.000 (0.0-0.012) X10*3/uL Nucleated RBC % (auto) 0.0 (0.0-0.2) /100WBC PT (10.0-13.1) SEC INR (0.9-1.1) Sodium (135-145) mmol/L Potassium (3.3-5.1) mmol/L Chloride (96-108) mmol/L Carbon Dioxide (22-29) mmol/L Anion Gap (12-20) BUN (9-16) mg/dL Creatinine (0.5-1.4) mg/dL Estim Creat Clear Calc Estimated GFR Random Glucose (60-115) mg/dL Calcium (8.4-10.2) mg/dL Magnesium (1.6-2.6) mg/dL Total Bilirubin (0.0-1.0) mg/dL AST (5-31) U/L ALT (0-31) U/L Alkaline Phosphatase (39-117) U/L Total Protein (6.5-8.0) g/dL Albumin (3.5-5.0) g/dL Stool Occult Blood POSITIVE (NEGATIVE) COVID-19 (ALEYDA) (Negative) COVID-19 Clin Com Blood Type B Positive Antibody Screen NEGATIVE Crossmatch See Detail ECG Data Attestation: I personally reviewed and interpreted this ECG as follows: Prior ECG tracings: available for review Interpretation: Ventricular rate 104, CT normalm QRS normal QT/QTC normala no ST elevations or inversions concerning for ischemia, no significant changes when compared to EKG 11/01/2021 Critical Care Time Critical Care Time Critical Care Time: Yes Total Critical Care Time: 180 Attestation: I attest to this time spent taking care of the patient, obtaining history, physical, reviewing labs, imaging, speaking to my attending, speaking to [facility] cialist. Discharge Plan Discharge Clinical Impression: Abdominal pain, suprapubic, Palpitations, Zaid hematuria, Acute blood loss anemia Patient Disposition: Still a Patient Prescriptions: No Action cholecalciferol (vitamin D3) 50 mcg (2,000 unit) tablet 50 mcg PO DAILY 90 Days Qty: 90 12RF aspirin 81 mg tablet,delayed release (DR/EC) 81 mg PO DAILY Qty: 30 5RF clopidogrel 75 mg tablet 75 mg PO DAILY Qty: 30 5RF atorvastatin 40 mg tablet 40 mg PO BEDTIME Qty: 30 5RF
[2022-05-25 13:48] LABS: MANUAL DIFF FLAG NO
[2022-05-25 13:50] LABS: Basophils Percent Auto 0.4 % (0-2); Eosinophils Percent Auto 0.1 % (0-4); Hematocrit 28.4 % (37.0-47.0); Hemoglobin 9.4 g/dl (12.0-16.0); Imm Gran Abs Auto 0.05 X10*3/uL (0.00-0.03); Imm Gran Pct Auto 0.6 % (0.0-0.4); Lymphocytes Absolute Auto 0.5 X10*3/uL (1.2-4.9); Lymphocytes Percent Auto 6.4 % (20-40); Mean Corpuscular HGB Conc 33.1 g/dl (31.0-35.0); Mean Corpuscular Hemoglobin 28.7 pg (27.0-33.0); Mean Corpuscular Volume 86.6 fL (80.0-98.0); Mean Platelet Volume 8.7 fL (9.4-12.3); Monocytes Absolute Auto 0.4 X10*3/uL (0.1-1.2); Monocytes Percent Auto 4.1 % (2-11); Neutrophils Absolute Auto 7.5 x10*3/uL (2.0-8.3); Neutrophils Percent Auto 88.4 % (45-73); Platelet Count 235 X10*3/uL (160-400); Red Blood Count 3.28 X10*6/uL (4.20-5.50); Red Cell Distribution Width 14.4 % (11.0-16.0); White Blood Count 8.5 X10*3/uL (4.8-10.8)
[2022-05-25 14:05] LABS: COVID-19 Test Negative (Negative); IDNOW Serial# 55D5AD1C
[2022-05-25] MEDS: 0.9 % Sodium Chloride 1,000 ML 999 ML IV ×2 (14:14→15:41)
[2022-05-25 14:18] LABS: Alanine Aminotransferase 20 U/L (0-31); Albumin Level 4.1 g/dL (3.5-5.0); Alkaline Phosphatase 98 U/L (39-117); Anion Gap 18 (12-20); Aspartate Amino Transferase 30 U/L (5-31); Bilirubin Total 1.4 mg/dL (0.0-1.0); Blood Urea Nitrogen 32 mg/dL (9-16); Calcium 9.7 mg/dL (8.4-10.2); Carbon Dioxide 21 mmol/L (22-29); Chloride 107 mmol/L (96-108); Creatinine Clr Calc Pharmacy 32.7; Estimated Glomerular Filt Rate > 60; Glucose Random 110 mg/dL (60-115); Magnesium 1.8 mg/dL (1.6-2.6); Potassium 3.5 mmol/L (3.3-5.1); Sodium 142 mmol/L (135-145); Total Protein 6.3 g/dL (6.5-8.0)
[2022-05-25 14:49] LABS: INTERNATIONAL NORM RATIO 1.1 (0.9-1.1)
[2022-05-25] MEDS: iohexoL 350 MG/ML 100 ML INFUS..BTL 85 ML IV (14:53)
--- NOTE | 2022-05-25 15:04 | ECG_ITS ---
Test Reason : VAGINAL BLEEDING Blood Pressure : / mmHG Vent. Rate : 104 BPM Atrial Rate : 104 BPM P-R Int : 206 ms QRS Dur : 064 ms QT Int : 364 ms P-R-T Axes : 069 -01 013 degrees QTc Int : 478 ms Sinus tachycardia with Premature atrial complexes Nonspecific T wave abnormality Abnormal ECG When compared with ECG of 01-NOV-2021 19:55, Premature atrial complexes are now Present Nonspecific T wave abnormality, worse in Inferior leads Nonspecific T wave abnormality now evident in Lateral leads Referred By: Liam Rojas Electronically Signed By:GT CUENCA MD
--- NOTE | 2022-05-25 15:06 | PM.GYNCN ---
TRUCKLOAD CHECKER - CN: HPI Data of Consult Consult date: 05/25/22 Primary Care Provider: Unknown Physician Consult Narrative Narrative: I was consulted on Rashida Olvera who is a 87 year old female with history of CVA currently on Plavix and aspirin presenting to the emergency department with bleeding, palpitations, abd pain and ligtheadedness last 2 and half days.? Patient reports that this has been gradually worsening over the past few days, associated with suprapubic pain.? The patient is changing a pad every few hours , but she is unable to quantify how many times however they are completely saturated when they are being changed. The source of the bleeding is unsure whether it is vaginal, bladder or rectal cc:: CC: SUPPORT SERVICES SPECIALIST - Review of Systems Review of Systems ROS Unobtainable: All systems reviewed & are unremarkable except as noted in HPI and below Cardiovascular: Denies Palpatations, Loss of consciousness or Chest pain Respiratory: Denies Cough, Wheezing or Shortness of breath Musculoskeletal: Denies Low back pain Gastrointestinal: Denies Heartburn, Constipation, Diarrhea, Nausea or Vomiting Genitourinary: Denies Pain with urination, Burning with urination or Urinary frequency Neurological: Denies Migranes Psychological: Denies Depression OB PMFSH Past Medical History Medical History Benign essential hypertension Lumbar degenerative disc disease Pure hypercholesterolemia Vitamin D deficiency Family History Family History Other Family history non-contributory Surgical History Surgical History History of eye surgery Social History Social History Household Members: None Housing: House Do you presently have visiting nurse or other home services: No Alcohol intake: never Patient Tobacco Use Status: Never used Tobacco e-Cigarette/Vaping Use: Never Used Second Hand Smoke Exposure: Yes service: No Current occupational status: retired Cognitive needs: No Hearing needs: No Vision needs: No Meds Allergies Allergy/AdvReac Type Severity Reaction Status Date / Time No Known Allergies Allergy Verified 01/14/22 11:34 Active Medications: Current Medications Sodium Chloride (Ns) 1,000 mls @ 999 mls/hr IV .Q1H1M ARTURO Stop: 05/25/22 15:15 Last Admin: 05/25/22 14:14 Dose: 999 mls/hr Sodium Chloride (Ns) 1,000 mls @ 999 mls/hr IV .Q1H1M ARTURO Stop: 05/25/22 15:15 Home Medications Medication Instructions Recorded Confirmed Last Taken Type lisinopril 10 mg tablet 1 tab PO BID 05/26/22 05/26/22 Unknown History TRUCKLOAD CHECKER Physical Exam Vitals Vital signs: Temp Pulse Resp BP Pulse Ox O2 Del Method 97.5 F 102 H 18 114/62 99 05/25/22 13:13 05/25/22 13:43 05/25/22 13:43 05/25/22 13:43 05/25/22 13:13 05/25/22 13:13 BMI result Body Mass Index 18.5 Constitutional General Appearance: Healthy appearing, Well-nourished and Well-developed Skin Appearance: No rashes and No lesions Lungs Respiratory Effort: No intercostal retractions Auscultation: Clear to auscultation Cardiovascular Auscultation: RRR Abdomen Auscultation/Inspection/Palpation: Normal bowel sounds, Soft, Non-distended and No tenderness Female Genitalia (Pelvic) Bladder/Urethra: Normal meatus Vulva: No lesions Vagina: No erythema and No lesions Cervix: Grossly normal Additional Comments: Initial Speculum exam showed 1 cc of light bloody tinged fluid, suspicious of urine leaked from the urethra into the vagina. No evidence of active vaginal bleeding. After the Cueva catheter was inserted gross hematuria was identified, repeat speculum exam showed no blood per vagina, normal cervix and vagina. Bimanual exam was suboptimal, the patient was not able to relax, the uterus and/or adnexa were not exam and optimally TRUCKLOAD CHECKER - Results Labs CBC & Chem 7: 05/29/22 09:21 05/29/22 09:21 Labs: Short CBC 05/25/22 Range/Units 13:42 WBC 8.5 (4.8-10.8) X10*3/uL Hgb 9.4 L D (12.0-16.0) g/dl Hct 28.4 L D (37.0-47.0) % Plt Count 235 (160-400) X10*3/uL BMP 05/25/22 13:42 Sodium 142 Potassium 3.5 Chloride 107 Carbon Dioxide 21 L BUN 32 H D Creatinine 0.88 Calcium 9.7 D Liver Function 05/25/22 Range/Units 13:42 Total Bilirubin 1.4 H (0.0-1.0) mg/dL AST 30 (5-31) U/L ALT 20 (0-31) U/L Alkaline Phosphatase 98 (39-117) U/L Albumin 4.1 (3.5-5.0) g/dL Imaging US - abdomen: Radiologist's impression: ITS Impressions Abdomen/Pelvis CT 05/25/22 15:07 IMPRESSION: 1. Large amount of hemorrhage distending the urinary bladder. There is a small focus of enhancement along the bladder wall at the anterior dome to the left of midline, which does not appreciably change in morphology and may represent a small bladder wall lesion as opposed to a focus of active hemorrhage. 2. Additional nonspecific prominent enhancement along the course of the urethra. 3. No contrast extravasation in the bowel identified to localize a source of GI bleeding via CT. 4. Grossly unremarkable appearance of the gynecologic structures-limited assessment. Pelvis Ultrasound 05/25/22 15:24 IMPRESSION: Large heterogeneous mass in the anterior pelvis measure up to 9.8 cm, uncertain origin, might have originated from the bladder or protruding from the uterus. Further investigation with more advanced imaging contrast-enhanced cross-sectional imaging preferably MRI would be advised. Ovaries not visualized might have been obscured by bowel gas or atrophic. CT scan - pelvis: Radiologist's impression: ITS Impressions Abdomen/Pelvis CT 05/25/22 15:07 IMPRESSION: 1. Large amount of hemorrhage distending the urinary bladder. There is a small focus of enhancement along the bladder wall at the anterior dome to the left of midline, which does not appreciably change in morphology and may represent a small bladder wall lesion as opposed to a focus of active hemorrhage. 2. Additional nonspecific prominent enhancement along the course of the urethra. 3. No contrast extravasation in the bowel identified to localize a source of GI bleeding via CT. 4. Grossly unremarkable appearance of the gynecologic structures-limited assessment. Pelvis Ultrasound 05/25/22 15:24 IMPRESSION: Large heterogeneous mass in the anterior pelvis measure up to 9.8 cm, uncertain origin, might have originated from the bladder or protruding from the uterus. Further investigation with more advanced imaging contrast-enhanced cross-sectional imaging preferably MRI would be advised. Ovaries not visualized might have been obscured by bowel gas or atrophic. Assessment and Plan (1) Zaid hematuria: Status: Acute -Recommend urology consult . Defer management of possible rectal bleeding to the emergency room team. -Since per patient's history, the source of the bleeding is unknown, there is evidence of gross hematuria after Cueva insertion, and the CT scan is pointing towards a bladder abnormality as a cause of the bleeding with normal gynecologic structures, I recommend MRI of the pelvis with and without contrast. Additionally, since the CT gynecological structures assessment was limited and the 9.8 cm anterior pelvic mass by ultrasound is of uncertain origin, could be originating from the bladder or from the uterus, MRI of the pelvis could be of assitance with further evaluation. If there is evidence of any vaginal bleeding and/or the MRI shows that the mass is Dispatcher Service Chief/uterine in origin and/or evidence of abnormal endometrium, will proceed with endometrial biopsy to rule out endometrial pathology including endometrial hyperplasia, malignancy or polyps; (2) Acute blood loss anemia: Status: Acute Plan Blood transfusion to correct the anemia
[2022-05-25 15:13] LABS: MANUAL DIFF FLAG NO
[2022-05-25 15:14] LABS: Basophils Percent Auto 0.3 % (0-2); Eosinophils Percent Auto 0.1 % (0-4); Hematocrit 26.5 % (37.0-47.0); Hemoglobin 8.8 g/dl (12.0-16.0); Imm Gran Abs Auto 0.04 X10*3/uL (0.00-0.03); Imm Gran Pct Auto 0.5 % (0.0-0.4); Lymphocytes Absolute Auto 0.5 X10*3/uL (1.2-4.9); Lymphocytes Percent Auto 5.6 % (20-40); Mean Corpuscular HGB Conc 33.2 g/dl (31.0-35.0); Mean Corpuscular Hemoglobin 28.7 pg (27.0-33.0); Mean Corpuscular Volume 86.3 fL (80.0-98.0); Mean Platelet Volume 8.8 fL (9.4-12.3); Monocytes Absolute Auto 0.4 X10*3/uL (0.1-1.2); Monocytes Percent Auto 4.3 % (2-11); Neutrophils Absolute Auto 7.9 x10*3/uL (2.0-8.3); Neutrophils Percent Auto 89.2 % (45-73); Platelet Count 191 X10*3/uL (160-400); Red Blood Count 3.07 X10*6/uL (4.20-5.50); Red Cell Distribution Width 14.3 % (11.0-16.0); White Blood Count 8.9 X10*3/uL (4.8-10.8)
[2022-05-25 15:19] LABS: OBS Int Ctl Valid YES; OBS1 POSITIVE (NEGATIVE)
[2022-05-25 15:31] LABS: Alanine Aminotransferase 17 U/L (0-31); Albumin Level 3.6 g/dL (3.5-5.0); Alkaline Phosphatase 84 U/L (39-117); Anion Gap 14 (12-20); Aspartate Amino Transferase 25 U/L (5-31); Bilirubin Total 1.2 mg/dL (0.0-1.0); Blood Urea Nitrogen 31 mg/dL (9-16); Carbon Dioxide 22 mmol/L (22-29); Chloride 108 mmol/L (96-108); Creatinine Clr Calc Pharmacy 38.9; Estimated Glomerular Filt Rate > 60; Glucose Random 81 mg/dL (60-115); Potassium 3.3 mmol/L (3.3-5.1); Sodium 141 mmol/L (135-145); Total Protein 5.4 g/dL (6.5-8.0)
[2022-05-25] MEDS: Pantoprazole Sodium 40 MG/10 ML VIAL IVPUSH (15:41)
--- NOTE | 2022-05-25 16:46 | P.CNUR_ITS ---
History of Present Illness Consult details Narrative: patient and feels findings related to origin. [facility] Past Medical History feels findings related to origin.? discussed further evaluation with cystoscopy evacuation of clots and Lumbar degenerative disc disease Pure hypercholesterolemia Vitamin D deficiency started CBI. Family History Large amount of hemorrhage distending the urinary bladder. There is Other Family history non-contributory Review of Systems Review of Systems: 10 point ROS negative other than stated in HPI Yes all [facility] Past Medical History Medical History Benign essential hypertension
--- NOTE | 2022-05-25 16:46 | PM.UROCN ---
History of Present Illness Consult details Consult date: 05/25/22 Narrative: 87-year-old female history of hypercholesterolemia, hypertension, CVA currently on Plavix and aspirin, h/o Raynaud's presenting to the emergency department with complaints of vaginal, rectal bleeding, palpitations, abd pain and lightlheadedness x2 and half days.? Patient denies chest pain, shortness of breath. Called to evaluate due to gross hematuria, [employer] OPERATOR has seen patient and feels findings related to origin.? I have discuss with the patient and her sister, Tracey, CT findings. I have discussed further evaluation with cystoscopy evacuation of clots and fulgaration, I have discussed that there may be a bladder tumor present. At the time of discusstion the patient is refusing to have a procedure. I changed henry to large bore 3 way and irrigated many clots from the bladder, and started CBI. Pertinent CT findings: Large amount of hemorrhage distending the urinary bladder. There is a small focus of enhancement along the bladder wall at the anterior dome to the left of midline, which does not appreciably change in morphology and may represent a small bladder wall lesion as opposed to a focus of active hemorrhage. Review of Systems Review of Systems: 10 point ROS negative other than stated in HPI Yes all other systems are reviewed and are negative PMFSH Past Medical History Medical History Benign essential hypertension Lumbar degenerative disc disease Pure hypercholesterolemia Vitamin D deficiency Family History Family History Other Family history non-contributory Surgical History Surgical History History of eye surgery Social History Social History Housing: House Alcohol intake: never Patient Tobacco Use Status: Never used Tobacco e-Cigarette/Vaping Use: Never Used Second Hand Smoke Exposure: Yes Advance Directives: Yes Advance Directives Information Provided: No Advance Directives on File: No service: No Current occupational status: retired Cognitive needs: No Hearing needs: No Vision needs: No Meds Allergies Allergy/AdvReac Type Severity Reaction Status Date / Time No Known Allergies Allergy Verified 01/14/22 11:34 Physical Exam Vital Signs: Vital Signs: Last Vital Signs Temp 97.5 F 05/25/22 13:13 Pulse 102 H 05/25/22 13:43 Resp 18 05/25/22 13:43 BP 114/62 05/25/22 13:43 Pulse Ox 99 05/25/22 13:13 O2 Del Method 05/25/22 13:13 BMI result Body Mass Index 18.5 Const: General: no acute distress Orientation/consciousness: patient oriented x3 HEENT: Head: Yes normal to inspection, Yes normocephalic and Yes atraumatic Eyes: Conjunctivae: conjunctivae normal Neck: Neck: Yes normal visual inspection and Yes trachea midline Chest: Chest palpation & inspection: normal inspection of the chest Resp: Effort & Inspection: normal respiratory effort GI: Inspection: Yes normal to inspection Palpation (GI): Soft to palpation : Other: [address] henry inserted bladder irrigation at bedside General: No no CVA tenderness Speculum Exam - Vagina: vagina atrophic Back/Spine/Pelvis: Back: No no CVA tenderness Skin: General skin exam: no rashes or lesions noted Neuro: General: patient oriented x3 Extrem: General: No edema Psych: Appearance: grossly normal Results Labs Result diagrams: 05/25/22 17:32 05/25/22 15:07 Labs: Abnormal lab results 05/25/22 05/25/22 05/25/22 Range/Units 13:42 13:42 15:07 RBC 3.28 L D 3.07 L (4.20-5.50) X10*6/uL Hgb 9.4 L D 8.8 L (12.0-16.0) g/dl Hct 28.4 L D 26.5 L (37.0-47.0) % MPV 8.7 L 8.8 L (9.4-12.3) fL Immature Gran % (Auto) 0.6 H 0.5 H (0.0-0.4) % Neut % (Auto) 88.4 H 89.2 H (45-73) % Lymph % (Auto) 6.4 L 5.6 L (20-40) % Lymph # (Auto) 0.5 L 0.5 L (1.2-4.9) X10*3/uL Abs Immat Gran (auto) 0.05 H 0.04 H (0.00-0.03) X10*3/uL Carbon Dioxide 21 L (22-29) mmol/L BUN 32 H D (9-16) mg/dL Total Bilirubin 1.4 H (0.0-1.0) mg/dL Total Protein 6.3 L (6.5-8.0) g/dL Crossmatch 05/25/22 05/25/22 Range/Units 15:07 15:07 RBC (4.20-5.50) X10*6/uL Hgb (12.0-16.0) g/dl Hct (37.0-47.0) % MPV (9.4-12.3) fL Immature Gran % (Auto) (0.0-0.4) % Neut % (Auto) (45-73) % Lymph % (Auto) (20-40) % Lymph # (Auto) (1.2-4.9) X10*3/uL Abs Immat Gran (auto) (0.00-0.03) X10*3/uL Carbon Dioxide (22-29) mmol/L BUN 31 H (9-16) mg/dL Total Bilirubin 1.2 H (0.0-1.0) mg/dL Total Protein 5.4 L (6.5-8.0) g/dL Crossmatch See Detail Short CBC 05/25/22 05/25/22 Range/Units 13:42 15:07 WBC 8.5 8.9 (4.8-10.8) X10*3/uL Hgb 9.4 L D 8.8 L (12.0-16.0) g/dl Hct 28.4 L D 26.5 L (37.0-47.0) % Plt Count 235 191 (160-400) X10*3/uL BMP 05/25/22 05/25/22 13:42 15:07 Sodium 142 141 Potassium 3.5 3.3 Chloride 107 108 Carbon Dioxide 21 L 22 BUN 32 H D 31 H Creatinine 0.88 0.74 Calcium 9.7 D 9.0 D Liver Function 05/25/22 05/25/22 Range/Units 13:42 15:07 Total Bilirubin 1.4 H 1.2 H (0.0-1.0) mg/dL AST 30 25 (5-31) U/L ALT 20 17 (0-31) U/L Alkaline Phosphatase 98 84 (39-117) U/L Albumin 4.1 3.6 (3.5-5.0) g/dL Imaging Abdomen CT scan report/results: report reviewed and image reviewed Additional studies: Date of Service: 05/25/22 Procedure(s): EXAMINATION: CTA ABDOMEN AND PELVIS WITHOUT AND WITH CONTRAST CLINICAL INFORMATION: Vaginal and rectal bleeding TECHNIQUE: Helical imaging was performed in the axial plane through the abdomen and pelvis before and after administration of IV contrast. 85 mL of Omnipaque 350 was administered intravenously. Images were evaluated on independent dedicated 3-D workstation and 3-D images were reconstructed with concurrent radiologist supervision and subsequently interpreted. This CT examination was performed using dose optimization techniques as appropriate, variously including the following: *? Automated exposure control *? Adjustment of mA and/or kV according to patient size (this includes techniques or standardized protocols for targeted exams where dose is matched to indication/reason for exam; i.e. extremities or head) *? Use of iterative reconstruction technique COMPARISON: None DLP: 611 mGy-cm. FINDINGS: VASCULAR: Visualized Thoracic Aorta: Normal caliber distal descending thoracic aorta. Abdominal Aorta: Tortuous normal caliber abdominal aorta with mild vascular calcifications. No dissection or aneurysm. Celiac Trunk: The celiac trunk and its branches opacify normally without evidence of dissection, obstruction, or flow-limiting stenosis. Mesenteric Arteries: The superior and inferior mesenteric arteries are normal in caliber with no focal stenosis or dissection. Renal Arteries: There are single renal arteries bilaterally. There is a single right-sided and a single left-sided renal arteries. No evidence of stenosis or dissection. Iliac Arteries: The iliac arteries are normal in course and caliber without evidence of focal stenosis or dissection. Mild vascular calcifications. Venous Structures: The inferior vena cava and portal venous system are without demonstrated abnormalities. NONVASCULAR: LUNG BASES: Lung bases are clear. LIVER, GALLBLADDER, BILIARY TREE: Normal hepatic attenuation in size. No liver lesion. Slight central intrahepatic biliary ductal dilation. No extrahepatic biliary ductal dilation. The gallbladder is unremarkable with no evidence of radiopaque gallstones, gallbladder wall thickening, or pericholecystic inflammatory changes. PANCREAS: Somewhat atrophic. No pancreatic lesion or peripancreatic inflammatory change identified. SPLEEN: Unremarkable. ADRENAL GLANDS: Unremarkable. KIDNEYS AND URETERS: The kidneys are normal in size, shape, and attenuation. No hydronephrosis or hydroureter or calculi seen. No perinephric stranding. BLADDER: Large amount of high density nonenhancing hemorrhage distends the urinary bladder. Postcontrast, there is a small focus of enhancement at the anterior bladder dome to the left of midline which may represent a small bladder wall lesion. This does not appreciably change in shape/morphology on the delayed phase, sagittal image 60. Additional prominent nonspecific enhancement along the course of the urethra. GASTROINTESTINAL TRACT: Sigmoid diverticulosis. No evidence of acute diverticulitis. No dilated bowel loops. No bowel wall thickening. No ascites or free air. Appendix is not discretely visualized. No inflammatory changes in the right lower quadrant. ABDOMINAL WALL: No hernia is demonstrated. ? LYMPH NODES: No lymphadenopathy identified. PELVIC VISCERA: Gynecologic structures grossly unremarkable-Limited assessment. OSSEOUS STRUCTURES: Subacute to chronic appearing right lower rib fracture deformities. Mild levoconvex curvature the lumbar spine with multilevel degenerative disc disease. Grade 1 anterolisthesis at L4-L5 secondary to advanced facet arthrosis. Mild chronic superior endplate Schmorl's node deformity at L1.? CT/CT gi bleed abd pel wo/w IVcon IMPRESSION: ? 1. Large amount of hemorrhage distending the urinary bladder. There is a small focus of enhancement along the bladder wall at the anterior dome to the left of midline, which does not appreciably change in morphology and may represent a small bladder wall lesion as opposed to a focus of active hemorrhage. 2. Additional nonspecific prominent enhancement along the course of the urethra. 3. No contrast extravasation in the bowel identified to localize a source of GI bleeding via CT. 4. Grossly unremarkable appearance of the gynecologic structures-limited assessment. ? Assessment and Plan (1) Gross hematuria: Status: Acute Plan I discussed with the patient further evaluation and treatment with cystoscopy evacuation of bladder clots, fulgaration. CT imaging notes possible bladder lesion Procedures Date of Service Date of Service: 05/25/22 Catheter Insertion (Urinary) Date of insertion: 05/25/22 Reason for placing: Other Antiseptic solution prep: Povidone-Iodine Catheter type/location: 3-way Urethral Size (Uzbek): 24 Catheter balloon size (mL): 30 Results: successfully catheterized-immediate flow Comment: Irrigated with 800 mL Normal saline, many clots irrigated out, Additional comments: Continuous bladder irrigation started
--- NOTE | 2022-05-25 17:08 | P.HPHOSP_ITS ---
History of Present Illness Date of Service: 05/25/22 Attending physician on admission: Efraín Hinojosa Chief Complaint: Vaginal bleeding A year old woman presented the ER with complaints pain, lightheadedness heart palpitations, vaginal and rectal bleeding over the last 2 days. Apparently it has gradually become worse. She has been changing a standard Lucero pad every few hours with continued bleeding. In the ER, her hemoglobin did drop from 9.4-8.8, she was transfuse 1 unit of pac ked red blood cells. She was seen by OBGYN initially assessed thought was this was a engineer intern issue however after reviewing the CT scan it appears that this is more of a urological issue, the urologist was consulted and is prepared for cystoscopy tonight. Abdominal pelvic CT showing large amount on hemorrhage distending to the urinary bladder with a question of a bladder lesion/mass. So far vital signs have remained stable, she is mildly tachycardic, blood pressure is systolically over 100. She was given 2 L of IV fluids in the ER. To be admitted for further management and treatment acute blood loss anemia secondary to bladder mass Review of Systems Review of Systems: Denies any recent fever chills or decrease in appetite respiratory denies any shortness of breath coverage production cardiovascular Denies chest pain gastrointestinal denies any dysphagia abdominal pain nausea vomiting or jim rrhea genitourinary See HPI musculoskeletal denies any joint pain or swelling neuropsych denies any weakness or seizures all other systems reviewed are negative [facility] Medical History Benign essential hypertension Lumbar degenerative disc disease Pure hypercholesterolemia Vitamin D deficiency Family History Other Family history non-contributory Surgical History History of eye surgery Social History Housing: House Alcohol intake: never Patient Tobacco Use Status: Never used Tobacco e-Cigarette/Vaping Use: Never Used Second Hand Smoke Exposure: Yes Advance Directives: Yes Advance Directives Information Provided: No Advance Directives on File: No service: No Current occupational status: retired Cognitive needs: No Hearing needs: No Vision needs: No Meds Allergies Allergy/AdvReac Type Severity Reaction Status Date / Time No Known Allergies Allergy Verified 01/14/22 11:34 Active Medications: Current Medications Acetaminophen (Acetaminophen 325 Mg Tablet) 650 mg PO Q6H PRN PRN Reason: Pain, Mild (Pain Scale 1-3) Cefazolin Sodium/Dextrose (Ancef) 2 gm in 50 mls @ 100 mls/hr IV PREOP ONE Stop: 05/25/22 17:23 Ondansetron HCl (Ondansetron Hcl 4 Mg/2 Ml Vial) 4 mg IVPUSH Q8H PRN PRN Reason: Nausea and Vomiting Sodium Chloride (0.9 % Sodium Chloride Flush 3 Ml Syringe) 3 ml IVFLUSH QSHIFT [facility] Physical Exam Vital Signs and Narrative: Vital Signs: Last Vital Signs Temp 97.5 F 05/25/22 13:13 Pulse 102 H 05/25/22 13:43 Resp 18 05/25/22 13:43 BP 114/62 05/25/22 13:43 Pulse Ox 99 05/25/22 13:13 O2 Del Method 05/25/22 13:13 BMI result Body Mass Index 18.5 Results Labs CBC and Chem 7: 05/25/22 15:07 05/25/22 15:07 Labs: Laboratory Results - last 24 hr 05/25/22 05/25/22 05/25/22 13:42 13:42 13:42 MCV 86.6 MCH 28.7 MCHC 33.1 RDW 14.4 Plt Count 235 MPV 8.7 L Immature Gran % (Auto) 0.6 H Neut % (Auto) 88.4 H Lymph % (Auto) 6.4 L [place] % (Auto) 4.1 Eos % (Auto) 0.1 Baso % (Auto) 0.4 Lymph # (Auto) 0.5 L [place] # (Auto) 0.4 Eos # (Auto) 0.0 Baso # (Auto) 0.0 Abs Immat Gran (auto) 0.05 H Absolute Neuts (auto) 7.5 Absolute Nucleated RBC 0.000 Nucleated RBC % (auto) 0.0 PT INR Anion Gap 18 Estim Creat Clear Calc 32.7 Estimated GFR > 60 Random Glucose 110 Calcium 9.7 D Magnesium 1.8 Total Bilirubin 1.4 H AST 30 ALT 20 Alkaline Phosphatase 98 Total Protein 6.3 L Albumin 4.1 Stool Occult Blood COVID-19 (ALEYDA) Negative COVID-19 Clin Com See Note Blood Type Antibody Screen Crossmatch 05/25/22 05/25/22 05/25/22 14:25 15:07 15:07 MCV 86.3 MCH 28.7 MCHC 33.2 RDW 14.3 Plt Count 191 MPV 8.8 L Immature Gran % (Auto) 0.5 H Neut % (Auto) 89.2 H Lymph % (Auto) 5.6 L [place] % (Auto) 4.3 Eos % (Auto) 0.1 Baso % (Auto) 0.3 Lymph # (Auto) 0.5 L [place] # (Auto) 0.4 Eos # (Auto) 0.0 Baso # (Auto) 0.0 Abs Immat Gran (auto) 0.04 H Absolute Neuts (auto) 7.9 Absolute Nucleated RBC 0.000 Nucleated RBC % (auto) 0.0 PT 13.0 INR 1.1 Anion Gap 14 Estim Creat Clear Calc 38.9 Estimated GFR > 60 Random Glucose 81 Calcium 9.0 D Magnesium Total Bilirubin 1.2 H AST 25 ALT 17 Alkaline Phosphatase 84 Total Protein 5.4 L Albumin 3.6 Stool Occult Blood COVID-19 (ALEYDA) COVID-SeroMatch Com Blood Type Antibody Screen Crossmatch 05/25/22 05/25/22 15:07 15:07 MCV MCH MCHC RDW Plt Count MPV Immature Gran % (Auto) Neut % (Auto) Lymph % (Auto) [place] % (Auto) Eos % (Auto) Baso % (Auto) Lymph # (Auto) [place] # (Auto) Eos # (Auto) Baso # (Auto) Abs Immat Gran (auto) Absolute Neuts (auto) Absolute Nucleated RBC Nucleated RBC % (auto) PT INR Anion Gap Estim Creat Clear Calc Estimated GFR Random Glucose Calcium Magnesium Total Bilirubin AST ALT Alkaline Phosphatase Total Protein Albumin Stool Occult Blood POSITIVE COVID-19 (ALEYDA) COVID-SeroMatch Com Blood Type B Positive Antibody Screen NEGATIVE Crossmatch See Detail Imaging Radiologist's Impressions: Impressions Abdomen/Pelvis CT 05/25/22 15:07 IMPRESSION: 1. Large amount of hemorrhage distending the urinary bladder. There is a small focus of enhancement along the bladder wall at the anterior dome to the left of midline, which does not appreciably change in morphology and may represent a small bladder wall lesion as opposed to a focus of active hemorrhage. 2. Additional nonspecific prominent enhancement along the course of the urethra. 3. No contrast extravasation in the bowel identified to localize a source of GI bleeding via CT. 4. Grossly unremarkable appearance of the gynecologic structures-limited assessment. Pelvis Ultrasound 05/25/22 15:24 IMPRESSION: Large heterogeneous mass in the anterior pelvis measure up to 9.8 cm, uncertain origin, might have originated from the bladder or protruding from the uterus. Further investigation with more advanced imaging contrast-enhanced cross-sectional imaging preferably MRI would be advised. Ovaries not visualized might have been obscured by bowel gas or atrophic. Assessment and Plan Plan 87 year old women admitted with Vaginal bleeding secondary to bladder lesion/mass Vaginal bleeding secondary to Bladder mass/lesion Tx 1 unit PRBC In ED due to bleeding Urology aware and prepared for cystoscopy with bladder clot evacuation and fulguration NPO follow HH closely Quality VTE VTE Risk Level:: Medical - moderate - high VTE Device Contraindication: N/A - Device Ordered VTE Drug Contraindication: Treatment Not Indicated
[2022-05-25 17:38] LABS: MANUAL DIFF FLAG NO
[2022-05-25 17:41] LABS: Basophils Percent Auto 0.3 % (0-2); Eosinophils Percent Auto 0.1 % (0-4); Hematocrit 27.8 % (37.0-47.0); Hemoglobin 9.2 g/dl (12.0-16.0); Imm Gran Abs Auto 0.03 X10*3/uL (0.00-0.03); Imm Gran Pct Auto 0.3 % (0.0-0.4); Lymphocytes Absolute Auto 0.9 X10*3/uL (1.2-4.9); Lymphocytes Percent Auto 9.7 % (20-40); Mean Corpuscular HGB Conc 33.1 g/dl (31.0-35.0); Mean Corpuscular Hemoglobin 28.4 pg (27.0-33.0); Mean Corpuscular Volume 85.8 fL (80.0-98.0); Mean Platelet Volume 8.8 fL (9.4-12.3); Monocytes Absolute Auto 0.7 X10*3/uL (0.1-1.2); Monocytes Percent Auto 6.8 % (2-11); Neutrophils Percent Auto 82.8 % (45-73); Platelet Count 197 X10*3/uL (160-400); Red Blood Count 3.24 X10*6/uL (4.20-5.50); Red Cell Distribution Width 14.5 % (11.0-16.0); White Blood Count 9.7 X10*3/uL (4.8-10.8)
--- NOTE | 2022-05-25 18:13 | P.CONAN_ITS ---
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 (Acute) Paresthesia (Acute) Adult general medical exam (Acute) Screening for diabetes mellitus (Acute) Pure hypercholesterolemia (Acute) Lumbar degenerative disc disease (Acute) Vitamin D deficiency (Acute) Benign essential hypertension (Acute) Past Medical History Medical History Benign essential hypertension Lumbar degenerative disc disease Pure hypercholesterolemia Vitamin D deficiency Family History Family History Other Family history non-contributory Family history of problems with anesthesia: No Surgical History Surgical History History of eye surgery History of Problems with Anesthesia: No Social History Social History Housing: House Alcohol intake: never Patient Tobacco Use Status: Never used Tobacco e-Cigarette/Vaping Use: Never Used Second Hand Smoke Exposure: Yes Use of substances other than those prescribed or required for medical reasons: No Advance Directives: Yes Advance Directives Information Provided: No Advance Directives on File: No service: No Current occupational status: retired Cognitive needs: No Hearing needs: No Vision needs: No Meds Allergies Allergy/AdvReac Type Severity Reaction Status Date / Time No Known Allergies Allergy Verified 01/14/22 11:34 Active Medications: Current Medications Acetaminophen (Acetaminophen 325 Mg Tablet) 650 mg PO Q6H PRN PRN Reason: Pain, Mild (Pain Scale 1-3) Ondansetron HCl (Ondansetron Hcl 4 Mg/2 Ml Vial) 4 mg IVPUSH Q8H PRN PRN Reason: Nausea and Vomiting Sodium Chloride (0.9 % Sodium Chloride Flush 3 Ml Syringe) 3 ml IVFLUSH QSHIFT [facility] Home Medications Medication Instructions Recorded Confirmed Last Taken Type lisinopril 10 mg tablet 1 tab PO BID 05/26/22 05/26/22 Unknown History Exam Exam Date and Time: May 25, 20221812 Height,Weight and Vital Signs: Height 5 ft 1 in Weight 44.452 kg Last Vital Signs Temp 97.5 F 05/25/22 13:13 Pulse 102 H 05/25/22 13:43 Resp 18 05/25/22 13:43 BP 114/62 05/25/22 13:43 Pulse Ox 99 05/25/22 13:13 O2 Del Method 05/25/22 13:13 Pertinent Lab Results Pertinent Lab Results: Laboratory Tests 05/25/22 05/25/22 05/25/22 13:42 13:42 13:42 WBC 8.5 RBC 3.28 L D Hgb 9.4 L D Hct 28.4 L D MCV 86.6 MCH 28.7 MCHC 33.1 RDW 14.4 Plt Count 235 MPV 8.7 L Immature Gran % (Auto) 0.6 H Neut % (Auto) 88.4 H Lymph % (Auto) 6.4 L [place] % (Auto) 4.1 Eos % (Auto) 0.1 Baso % (Auto) 0.4 Lymph # (Auto) 0.5 L [place] # (Auto) 0.4 Eos # (Auto) 0.0 Baso # (Auto) 0.0 Abs Immat Gran (auto) 0.05 H Absolute Neuts (auto) 7.5 Absolute Nucleated RBC 0.000 Nucleated RBC % (auto) 0.0 PT INR Sodium 142 Potassium 3.5 Chloride 107 Carbon Dioxide 21 L Anion Gap 18 BUN 32 H D Creatinine 0.88 Estim Creat Clear Calc 32.7 Estimated GFR > 60 Random Glucose 110 Calcium 9.7 D Magnesium 1.8 Total Bilirubin 1.4 H AST 30 ALT 20 Alkaline Phosphatase 98 Total Protein 6.3 L Albumin 4.1 Stool Occult Blood COVID-19 (ALEYDA) Negative COVID-19 Clin Com See Note Blood Type Antibody Screen Crossmatch 05/25/22 05/25/22 05/25/22 14:25 15:07 15:07 WBC 8.9 RBC 3.07 L Hgb 8.8 L Hct 26.5 L MCV 86.3 MCH 28.7 MCHC 33.2 RDW 14.3 Plt Count 191 MPV 8.8 L Immature Gran % (Auto) 0.5 H Neut % (Auto) 89.2 H Lymph % (Auto) 5.6 L [place] % (Auto) 4.3 Eos % (Auto) 0.1 Baso % (Auto) 0.3 Lymph # (Auto) 0.5 L [place] # (Auto) 0.4 Eos # (Auto) 0.0 Baso # (Auto) 0.0 Abs Immat Gran (auto) 0.04 H Absolute Neuts (auto) 7.9 Absolute Nucleated RBC 0.000 Nucleated RBC % (auto) 0.0 PT 13.0 INR 1.1 Sodium 141 Potassium 3.3 Chloride 108 Carbon Dioxide 22 Anion Gap 14 BUN 31 H Creatinine 0.74 Estim Creat Clear Calc 38.9 Estimated GFR > 60 Random Glucose 81 Calcium 9.0 D Magnesium Total Bilirubin 1.2 H AST 25 ALT 17 Alkaline Phosphatase 84 Total Protein 5.4 L Albumin 3.6 Stool Occult Blood COVID-19 (ALEYDA) [employer] Com Blood Type Antibody Screen Crossmatch 05/25/22 05/25/22 05/25/22 15:07 15:07 17:32 WBC 9.7 RBC 3.24 L Hgb 9.2 L Hct 27.8 L MCV 85.8 MCH 28.4 MCHC 33.1 RDW 14.5 Plt Count 197 MPV 8.8 L Immature Gran % (Auto) 0.3 Neut % (Auto) 82.8 H Lymph % (Auto) 9.7 L [place] % (Auto) 6.8 Eos % (Auto) 0.1 Baso % (Auto) 0.3 Lymph # (Auto) 0.9 L [place] # (Auto) 0.7 Eos # (Auto) 0.0 Baso # (Auto) 0.0 Abs Immat Gran (auto) 0.03 Absolute Neuts (auto) 8.0 Absolute Nucleated RBC 0.000 Nucleated RBC % (auto) 0.0 PT INR Sodium Potassium Chloride Carbon Dioxide Anion Gap BUN Creatinine Estim Creat Clear Calc Estimated GFR Random Glucose Calcium Magnesium Total Bilirubin AST ALT Alkaline Phosphatase Total Protein Albumin Stool Occult Blood POSITIVE COVID-19 (ALEYDA) COVID-[employer] Com Blood Type B Positive Antibody Screen NEGATIVE Crossmatch See Detail Airway Mallampati Class: II TM Dist: >3cm Neck ROM: Full Loose/Missing/Broken Teeth: No Heart: RRR Lungs: cta Assessment and Plan Assessment Anesthesia Assessment: Anesthesia Plan Discussed and Chart Reviewed Final Anesthetic Review Family History of Problems with Anesthesia: No History of Problems with Anesthesia: No NPO: Yes ASA Class: III and Emergency Final Preanesthetic Review: No Changes in Pt Med Stat, Meds/Allgs Chart Reviewed, Consent Obtained/Reviewed and Anes Risks/Benef Reviewed Patient Risk: Intermediate Procedure Risk: Intermediate Anesthetic Plan Anesthetic Plan: GA Documented by User: Yao Todd MD 05/26/22 14:05 PMF Past Medical History Medical History Benign essential hypertension Lumbar degenerative disc disease Pure hypercholesterolemia Vitamin D deficiency Family History Family History Other Family history non-contributory Surgical History Surgical History History of eye surgery Social History Social History Housing: House Alcohol intake: never Patient Tobacco Use Status: Never used Tobacco e-Cigarette/Vaping Use: Never Used Second Hand Smoke Exposure: Yes Use of substances other than those prescribed or required for medical reasons: No Advance Directives: Yes Advance Directives Information Provided: No Advance Directives on File: No service: No Current occupational status: retired Cognitive needs: No Hearing needs: No Vision needs: No Meds Allergies Allergy/AdvReac Type Severity Reaction Status Date / Time No Known Allergies Allergy Verified 01/14/22 11:34 Home Medications Medication Instructions Recorded Confirmed Last Taken Type lisinopril 10 mg tablet 1 tab PO BID 05/26/22 05/26/22 Unknown History Assessment and Plan Anesthetic Plan Disposition: Standard PACU
--- NOTE | 2022-05-25 19:35 | PC.NURSE ---
Pt reports increasing anxiety and discomfort. Sister at bedside repeatedly asking ERT to give her something to help her relax-but don't tell her. Family and patient educated that that would be a voilation of patient right and that I would be happy to work on getting her medicated for comfort, but she would be notified of the entire process.
--- NOTE | 2022-05-25 19:45 | PC.NURSE ---
Pt continues to refuse transfusion. One large BM at shift change. Surgeon at bedside at this time.
[2022-05-25] MEDS: Morphine Sulfate 2 MG/ML CARTRIDGE IVPUSH (20:43)
[2022-05-25] MEDS: ondansetron HCL 4 MG/2 ML VIAL IVPUSH (20:44)
[2022-05-25] MEDS: cefTRIAXone sodium 1 GM in 0.9 % Sodium Chloride 50 ML IV (20:54)
--- NOTE | 2022-05-25 21:02 | PC.NURSE ---
CBI fluid flushes out of vaginal opening with every movement. Hospitalist aware.
[2022-05-25 22:21] LABS: MANUAL DIFF FLAG NO
[2022-05-25 22:23] LABS: Basophils Percent Auto 0.2 % (0-2); Eosinophils Percent Auto 0.2 % (0-4); Hematocrit 29.7 % (37.0-47.0); Hemoglobin 9.9 g/dl (12.0-16.0); Lymphocytes Absolute Auto 0.3 X10*3/uL (1.2-4.9); Lymphocytes Percent Auto 7.5 % (20-40); Mean Corpuscular HGB Conc 33.3 g/dl (31.0-35.0); Mean Corpuscular Hemoglobin 28.9 pg (27.0-33.0); Mean Corpuscular Volume 86.6 fL (80.0-98.0); Mean Platelet Volume 8.7 fL (9.4-12.3); Monocytes Absolute Auto 0.2 X10*3/uL (0.1-1.2); Monocytes Percent Auto 4.6 % (2-11); Neutrophils Percent Auto 87.5 % (45-73); Platelet Count 206 X10*3/uL (160-400); Red Blood Count 3.43 X10*6/uL (4.20-5.50); Red Cell Distribution Width 14.5 % (11.0-16.0); White Blood Count 4.5 X10*3/uL (4.8-10.8)
[2022-05-25] MEDS: Lactated Ringers 1,000 ML 100 ML IVCONT (23:19)
[2022-05-26] VITALS (11 sets, daily range): BP systolic 100–140; BP diastolic 52–71; PULSE 91–110; RESP 16–30; TEMP 36.3–37.3; O2SAT 85–100
[2022-05-26 04:39] LABS: Basophils Percent Auto 0.1 % (0-2); Hematocrit 33.3 % (37.0-47.0); Hemoglobin 10.8 g/dl (12.0-16.0); Imm Gran Abs Auto 0.01 X10*3/uL (0.00-0.03); Imm Gran Pct Auto 0.1 % (0.0-0.4); Lymphocytes Absolute Auto 0.2 X10*3/uL (1.2-4.9); Lymphocytes Percent Auto 2.9 % (20-40); MANUAL DIFF FLAG NO; Mean Corpuscular HGB Conc 32.4 g/dl (31.0-35.0); Mean Corpuscular Hemoglobin 28.1 pg (27.0-33.0); Mean Corpuscular Volume 86.7 fL (80.0-98.0); Mean Platelet Volume 8.7 fL (9.4-12.3); Monocytes Absolute Auto 0.3 X10*3/uL (0.1-1.2); Monocytes Percent Auto 3.6 % (2-11); Neutrophils Absolute Auto 6.7 x10*3/uL (2.0-8.3); Neutrophils Percent Auto 93.3 % (45-73); Platelet Count 192 X10*3/uL (160-400); Red Blood Count 3.84 X10*6/uL (4.20-5.50); Red Cell Distribution Width 14.9 % (11.0-16.0); SCAN SMEAR FLAG 1; White Blood Count 7.2 X10*3/uL (4.8-10.8)
[2022-05-26 05:06] LABS: Anion Gap 17 (12-20); Blood Urea Nitrogen 25 mg/dL (9-16); Calcium 8.4 mg/dL (8.4-10.2); Carbon Dioxide 16 mmol/L (22-29); Chloride 115 mmol/L (96-108); Creatinine Clr Calc Pharmacy 48.9; Estimated Glomerular Filt Rate > 60; Glucose Random 116 mg/dL (60-115); Potassium 3.3 mmol/L (3.3-5.1); Sodium 145 mmol/L (135-145)
--- NOTE | 2022-05-26 07:07 | P.HPHOSP_ITS ---
History of Present Illness Date of Service: 05/26/22 Chief Complaint: bleeding 87-year-old female past medical history of CVA with right-sided hemiparesis, history of Raynaud's disease, hyperlipidemia, vitamin-D deficiency, HTN presents the hospital with complaints of hematuria//bleeding from the vagina. Patient was initially seen by my colleague in the ED but there was a confusion about her admission as patient initially did not want cystoscopy or any further evaluation of her hematuria, case was discussed with Urology, patient also had a discussion with Urology along with her son and her sister at bedside, at this time patient is agreeable for cystoscopy and further admission for evaluation and management. Patient herself is a post speaking but she understands Ecuadorean in responding wishes well. She came into the ED with complaints of bleeding from the vagina/urine with no previous similar bleeding. She reports no vaginal spotting, and no hematuria previously. She reports lightheadedness, increased weakness, and palpitations. Patient does endorse weight loss, but not sure how much. An?Abdominal pelvic CT showing large amount on hemorrhage distending to the urinary bladder with a question of a bladder lesion/mass. Patient was evaluated initially by Ob Gyne as this was a concern of vaginal bleeding, but after obtaining a pelvis ultrasound which also showed a large heterogeneous mass in the anterior pelvis measuring up to 9.8 cm of uncertain origin it was decided that is most likely originating from the bladder or protruding from the uterus, urology was consulted. Urology wanted to have patient undergo cystoscopy but patient was not short and she was opposed to initially. Plan was to start CBI, stabilized patient, with plan for cystoscopy in a.m.. Patient did receive 1 unit of PRBC after her hemoglobin dropped from 9.4-8.8, with appropriate respons I had an extensive discussion with son, and patient at bedside regarding her cholecystitis, initially patient did not want to be resuscitated, she did not want a cystoscopy, as well as no procedural intervention done, but her son talked her out of it, her son is her healthcare proxy, he reports that he wants his mother to be full code, and to undergo cystoscopy. Review of Systems Review of Systems: Yes all other systems are reviewed and are negative [facility] Medical History Benign essential hypertension Lumbar degenerative disc disease Pure hypercholesterolemia Vitamin D deficiency Family History Other Family history non-contributory Surgical History History of eye surgery Social History Housing: House Alcohol intake: never Patient Tobacco Use Status: Never used Tobacco e-Cigarette/Vaping Use: Never Used Second Hand Smoke Exposure: Yes Use of substances other than those prescribed or required for medical reasons: No Advance Directives: Yes Advance Directives Information Provided: No Advance Directives on File: No service: No Current occupational status: retired Cognitive needs: No Hearing needs: No Vision needs: No Meds Allergies Allergy/AdvReac Type Severity Reaction Status Date / Time No Known Allergies Allergy Verified 01/14/22 11:34 Active Medications: Current Medications Acetaminophen (Acetaminophen 325 Mg Tablet) 650 mg PO Q6H PRN PRN Reason: Pain, Mild (Pain Scale 1-3) Lactated Ringer's (Lr) 1,000 mls @ 100 mls/hr IVCONT .Q10H ARTURO Last Admin: 05/25/22 23:19 Dose: 100 mls/hr Ondansetron HCl (Ondansetron Hcl 4 Mg/2 Ml Vial) 4 mg IVPUSH Q8H PRN PRN Reason: Nausea and Vomiting Last Admin: 05/25/22 20:44 Dose: 4 mg Pharmacy Consult (Consult Rx Perform Med Rec) 1 each MISCELLANE ONCE PRN PRN Reason: Consult order Sodium Chloride (0.9 % Sodium Chloride Flush 3 Ml Syringe) 3 ml IVFLUSH QSHIFT [facility] Physical Exam Vital Signs and Narrative: Vital Signs: Last Vital Signs Temp 97.4 F 05/26/22 04:43 Pulse 104 H 05/26/22 04:52 Resp 21 H 05/26/22 04:52 BP 140/71 H 05/26/22 04:43 Pulse Ox 97 05/26/22 04:52 O2 Del Method 05/26/22 04:52 O2 Flow Rate 2 05/26/22 04:52 BMI result Body Mass Index 18.5 Const: Other: Although speaking mainly, but she understands Ecuadorean, responds and anguish Appears cachectic General: cooperative and no acute distress Orien tation/consciousness: patient oriented x3 Eyes: General: appearance normal, both eyes and all related structures Resp: Effort & Inspection: normal respiratory effort Auscultation: clear to auscultation bilaterally Cardio: Rate: regular rate Rhythm: regular rhythm GI: Palpation (GI): Soft to palpation Auscultation: normal bowel sounds Skin: General skin exam: no rashes or lesions noted Neuro: General: patient oriented x3 Cognition (Neuro): normal cognition Extrem: General: Yes normal to inspection and Yes no pedal edema Results Labs CBC and Chem 7: 05/26/22 04:30 05/26/22 04:30 Labs: Laboratory Results - last 24 hr 05/25/22 05/25/22 05/25/22 13:42 13:42 13:42 MCV 86.6 MCH 28.7 MCHC 33.1 RDW 14.4 Plt Count 235 MPV 8.7 L Immature Gran % (Auto) 0.6 H Neut % (Auto) 88.4 H Lymph % (Auto) 6.4 L [place] % (Auto) 4.1 Eos % (Auto) 0.1 Baso % (Auto) 0.4 Lymph # (Auto) 0.5 L [place] # (Auto) 0.4 Eos # (Auto) 0.0 Baso # (Auto) 0.0 Abs Immat Gran (auto) 0.05 H Absolute Neuts (auto) 7.5 Absolute Nucleated RBC 0.000 Nucleated RBC % (auto) 0.0 PT INR Anion Gap 18 Estim Creat Clear Calc 32.7 Estimated GFR > 60 Random Glucose 110 Calcium 9.7 D Magnesium 1.8 Total Bilirubin 1.4 H AST 30 ALT 20 Alkaline Phosphatase 98 Total Protein 6.3 L Albumin 4.1 Stool Occult Blood COVID-19 (ALEYDA) Negative COVID-19 Clin Com See Note Blood Type Antibody Screen Crossmatch 05/25/22 05/25/22 05/25/22 14:25 15:07 15:07 MCV 86.3 MCH 28.7 MCHC 33.2 RDW 14.3 Plt Count 191 MPV 8.8 L Immature Gran % (Auto) 0.5 H Neut % (Auto) 89.2 H Lymph % (Auto) 5.6 L [place] % (Auto) 4.3 Eos % (Auto) 0.1 Baso % (Auto) 0.3 Lymph # (Auto) 0.5 L [place] # (Auto) 0.4 Eos # (Auto) 0.0 Baso # (Auto) 0.0 Abs Immat Gran (auto) 0.04 H Absolute Neuts (auto) 7.9 Absolute Nucleated RBC 0.000 Nucleated RBC % (auto) 0.0 PT 13.0 INR 1.1 Anion Gap 14 Estim Creat Clear Calc 38.9 Estimated GFR > 60 Random Glucose 81 Calcium 9.0 D Magnesium Total Bilirubin 1.2 H AST 25 ALT 17 Alkaline Phosphatase 84 Total Protein 5.4 L Albumin 3.6 Stool Occult Blood COVID-19 (ALEYDA) COVID-19 [facility] Blood Type Antibody Screen Crossmatch 05/25/22 05/25/22 05/25/22 15:07 15:07 17:32 MCV 85.8 MCH 28.4 MCHC 33.1 RDW 14.5 Plt Count 197 MPV 8.8 L Immature Gran % (Auto) 0.3 Neut % (Auto) 82.8 H Lymph % (Auto) 9.7 L [place] % (Auto) 6.8 Eos % (Auto) 0.1 Baso % (Auto) 0.3 Lymph # (Auto) 0.9 L [place] # (Auto) 0.7 Eos # (Auto) 0.0 Baso # (Auto) 0.0 Abs Immat Gran (auto) 0.03 Absolute Neuts (auto) 8.0 Absolute Nucleated RBC 0.000 Nucleated RBC % (auto) 0.0 PT INR Anion Gap Estim Creat Clear Calc Estimated GFR Random Glucose Calcium Magnesium Total Bilirubin AST ALT Alkaline Phosphatase Total Protein Albumin Stool Occult Blood POSITIVE COVID-19 (ALEYDA) COVID-19 [facility] Com Blood Type B Positive Antibody Screen NEGATIVE Crossmatch See Detail 05/25/22 05/26/22 05/26/22 22:17 04:30 04:30 MCV 86.6 86.7 MCH 28.9 28.1 MCHC 33.3 32.4 RDW 14.5 14.9 Plt Count 206 192 MPV 8.7 L 8.7 L Immature Gran % (Auto) 0.0 0.1 Neut % (Auto) 87.5 H 93.3 H Lymph % (Auto) 7.5 L 2.9 L [place] % (Auto) 4.6 3.6 Eos % (Auto) 0.2 0.0 Baso % (Auto) 0.2 0.1 Lymph # (Auto) 0.3 L 0.2 L [place] # (Auto) 0.2 0.3 Eos # (Auto) 0.0 0.0 Baso # (Auto) 0.0 0.0 Abs Immat Gran (auto) 0.00 0.01 Absolute Neuts (auto) 4.0 6.7 Absolute Nucleated RBC 0.000 0.000 Nucleated RBC % (auto) 0.0 0.0 PT INR Anion Gap 17 Estim Creat Clear Calc 48.9 Estimated GFR > 60 Random Glucose 116 H Calcium 8.4 D Magnesium Total Bilirubin AST ALT Alkaline Phosphatase Total Protein Albumin Stool Occult Blood COVID-19 (ALEYDA) COVID-19 Clin Com Blood Type Antibody Screen Crossmatch Imaging Radiologist's Impressions: Impressions Abdomen/Pelvis CT 05/25/22 15:07 IMPRESSION: 1. Large amount of hemorrhage distending the urinary bladder. There is a small focus of enhancement along the bladder wall at the anterior dome to the left of midline, which does not appreciably change in morphology and may represent a small bladder wall lesion as opposed to a focus of active hemorrhage. 2. Additional nonspecific prominent enhancement along the course of the urethra. 3. No contrast extravasation in the bowel identified to localize a source of GI bleeding via CT. 4. Grossly unremarkable appearance of the gynecologic structures-limited assessment. Pelvis Ultrasound 05/25/22 15:24 IMPRESSION: Large heterogeneous mass in the anterior pelvis measure up to 9.8 cm, uncertain origin, might have originated from the bladder or protruding from the uterus. Further investigation with more advanced imaging contrast-enhanced cross-sectional imaging preferably MRI would be advised. Ovaries not visualized might have been obscured by bowel gas or atrophic. Assessment and Plan (1) Zaid hematuria: Status: Acute (2) Acute blood loss anemia: Status: Acute (3) Abdominal pain, suprapubic: Status: Acute (4) Bladder mass: Status: Acute Plan 87-year-old female who presents to the hospital with hematuria found to have a bladder/uterine mass # vaginal bleeding/hematuria secondary to bladder mass lesion - likely secondary to bladder mass - did drop in hemoglobin - currently on CBI- continue - urology consulted - patient and son keep going back and forth with wanting cystoscopy not wanting cystoscopy - at this time will keep NPO in anticipation of cystoscopy in a.m. - monitor H&H # acute blood loss anemia - secondary to hematuria/bladder mass - plan for cystoscopy in a.m. - follow H&H - transfusion threshold hemoglobin 7 # of note patient was evaluated by Ob Gyne, which felt that this to be a urological issue, at this time patient did not tolerate transvaginal ultrasound and only had pelvic ultrasound # history of CVA - hold Plavix/aspirin DVT prophylaxis: SCDs Pt will require a minimum 2 night hospital stay for management of acute blood loss anemia, and further evaluation of bladder mass that is atively bleeding Quality Stroke Does the patient have a stroke diagnosis?: No VTE Prior VTE?: No VTE Risk Level:: Medical - moderate - high VTE Device Contraindication: N/A - Device Ordered VTE Drug Contraindication: Treatment Not Indicated
[2022-05-26] MEDS: Lactated Ringers 1,000 ML 100 ML IVCONT ×2 (08:11→17:02)
--- NOTE | 2022-05-26 09:11 | PHA.MEDREC ---
Pharmacy Consult ? Medication Reconciliation Pharmacy has completed the medication reconciliation. per claim history, unable to speak with patient and also contacted son with no answer.
--- NOTE | 2022-05-26 09:46 | HO.PM.IMPN ---
Subjective Subjective Date of Service: 05/27/22 Interval History: Seen in f/u for gross hematuria interval history: Hematuria is better on CBI, Review of Systems no fever so ad discomfort Physical Exam Vital Signs: Vital Signs: Last Vital Signs Temp 97.4 F 05/26/22 04:43 Pulse 104 H 05/26/22 04:52 Resp 21 H 05/26/22 04:52 BP 140/71 H 05/26/22 04:43 Pulse Ox 97 05/26/22 04:52 O2 Del Method 05/26/22 04:52 O2 Flow Rate 2 05/26/22 04:52 BMI result Body Mass Index 18.5 Const: Other: General: AO X 3, no acute distress Resp: CTA bilateral CVS: S1,S2,RRR GI: +BS, non specific abd tenderness, no distention Skin: No rash Neuro: motor grossly intact Psych: appropriate affect Objective Data Active Medications Acetaminophen (Acetaminophen 325 Mg Tablet) 650 mg PO Q6H PRN PRN Reason: Pain, Mild (Pain Scale 1-3) Lactated Ringer's (Lr) 1,000 mls @ 100 mls/hr IVCONT .Q10H [facility] Last Admin: 05/26/22 08:11 Dose: 100 mls/hr Documented By: DAVE Cefazolin Sodium 1 gm/ Sodium (Chloride) 50 mls @ 100 mls/hr IV Q8H ARTURO Ondansetron HCl (Ondansetron Hcl 4 Mg/2 Ml Vial) 4 mg IVPUSH Q8H PRN PRN Reason: Nausea and Vomiting Last Admin: 05/25/22 20:44 Dose: 4 mg Documented By: KENNA Pharmacy Consult (Consult Rx Perform Med Rec) 1 each MISCELLANE ONCE PRN PRN Reason: Consult order Sodium Chloride (0.9 % Sodium Chloride Flush 3 Ml Syringe) 3 ml IVFLUSH QSHIFT [facility] Last Admin: 05/26/22 08:50 Dose: Not Given Documented By: NATALIIA Non-Admin Reason: IV Running Labs CBC & Chem 7: 05/27/22 07:48 05/26/22 04:30 Labs: Laboratory Results - last 24 hr 05/25/22 05/25/22 05/25/22 13:42 13:42 13:42 MCV 86.6 MCH 28.7 MCHC 33.1 RDW 14.4 Plt Count 235 MPV 8.7 L Immature Gran % (Auto) 0.6 H Neut % (Auto) 88.4 H Lymph % (Auto) 6.4 L [place] % (Auto) 4.1 Eos % (Auto) 0.1 Baso % (Auto) 0.4 Lymph # (Auto) 0.5 L [place] # (Auto) 0.4 Eos # (Auto) 0.0 Baso # (Auto) 0.0 Abs Immat Gran (auto) 0.05 H Absolute Neuts (auto) 7.5 Absolute Nucleated RBC 0.000 Nucleated RBC % (auto) 0.0 PT INR Anion Gap 18 Estim Creat Clear Calc 32.7 Estimated GFR > 60 Random Glucose 110 Calcium 9.7 D Magnesium 1.8 Total Bilirubin 1.4 H AST 30 ALT 20 Alkaline Phosphatase 98 Total Protein 6.3 L Albumin 4.1 Stool Occult Blood COVID-19 (ALEYDA) Negative COVID-19 Clin Com See Note Blood Type Antibody Screen Crossmatch 05/25/22 05/25/22 05/25/22 14:25 15:07 15:07 MCV 86.3 MCH 28.7 MCHC 33.2 RDW 14.3 Plt Count 191 MPV 8.8 L Immature Gran % (Auto) 0.5 H Neut % (Auto) 89.2 H Lymph % (Auto) 5.6 L [place] % (Auto) 4.3 Eos % (Auto) 0.1 Baso % (Auto) 0.3 Lymph # (Auto) 0.5 L [place] # (Auto) 0.4 Eos # (Auto) 0.0 Baso # (Auto) 0.0 Abs Immat Gran (auto) 0.04 H Absolute Neuts (auto) 7.9 Absolute Nucleated RBC 0.000 Nucleated RBC % (auto) 0.0 PT 13.0 INR 1.1 Anion Gap 14 Estim Creat Clear Calc 38.9 Estimated GFR > 60 Random Glucose 81 Calcium 9.0 D Magnesium Total Bilirubin 1.2 H AST 25 ALT 17 Alkaline Phosphatase 84 Total Protein 5.4 L Albumin 3.6 Stool Occult Blood COVID-19 (ALEYDA) COVID-19 Clin Com Blood Type Antibody Screen Crossmatch 05/25/22 05/25/22 05/25/22 15:07 15:07 17:32 MCV 85.8 MCH 28.4 MCHC 33.1 RDW 14.5 Plt Count 197 MPV 8.8 L Immature Gran % (Auto) 0.3 Neut % (Auto) 82.8 H Lymph % (Auto) 9.7 L [place] % (Auto) 6.8 Eos % (Auto) 0.1 Baso % (Auto) 0.3 Lymph # (Auto) 0.9 L [place] # (Auto) 0.7 Eos # (Auto) 0.0 Baso # (Auto) 0.0 Abs Immat Gran (auto) 0.03 Absolute Neuts (auto) 8.0 Absolute Nucleated RBC 0.000 Nucleated RBC % (auto) 0.0 PT INR Anion Gap Estim Creat Clear Calc Estimated GFR Random Glucose Calcium Magnesium Total Bilirubin AST ALT Alkaline Phosphatase Total Protein Albumin Stool Occult Blood POSITIVE COVID-19 (ALEYDA) COVID-[facility] Blood Type B Positive Antibody Screen NEGATIVE Crossmatch See Detail 05/25/22 05/26/22 05/26/22 22:17 04:30 04:30 MCV 86.6 86.7 MCH 28.9 28.1 MCHC 33.3 32.4 RDW 14.5 14.9 Plt Count 206 192 MPV 8.7 L 8.7 L Immature Gran % (Auto) 0.0 0.1 Neut % (Auto) 87.5 H 93.3 H Lymph % (Auto) 7.5 L 2.9 L [place] % (Auto) 4.6 3.6 Eos % (Auto) 0.2 0.0 Baso % (Auto) 0.2 0.1 Lymph # (Auto) 0.3 L 0.2 L [place] # (Auto) 0.2 0.3 Eos # (Auto) 0.0 0.0 Baso # (Auto) 0.0 0.0 Abs Immat Gran (auto) 0.00 0.01 Absolute Neuts (auto) 4.0 6.7 Absolute Nucleated RBC 0.000 0.000 Nucleated RBC % (auto) 0.0 0.0 PT INR Anion Gap 17 Estim Creat Clear Calc 48.9 Estimated GFR > 60 Random Glucose 116 H Calcium 8.4 D Magnesium Total Bilirubin AST ALT Alkaline Phosphatase Total Protein Albumin Stool Occult Blood COVID-19 (ALEYDA) COVID-19 [facility] Blood Type Antibody Screen Crossmatch Assessment and Plan (1) Zaid hematuria: Status: Acute (2) Bladder mass: Status: Acute Plan 87-year-old female who presents to the hospital with hematuria found to have a bladder/uterine mass # vaginal bleeding/hematuria secondary to bladder mass lesion - likely secondary to bladder mass - did drop in hemoglobin - currently on CBI- continue - urology consulted - patient and son keep going back and forth with wanting cystoscopy not wanting cystoscopy - at this time will keep NPO in anticipation of cystoscopy in a.m. - monitor H&H # acute blood loss anemia - secondary to hematuria/bladder mass - plan for cystoscopy in a.m. - follow H&H - transfusion threshold hemoglobin 7 # of note patient was evaluated by [employer] COMMUNICATION PROFESSOR (Dr. Lin) who believes issue is urogenital and not vaginal, she recommendeed transvaginal ultrasound and patient did not tolerate this, and only had pelvic ultrasound # history of CVA - hold Plavix/aspirin DVT prophylaxis: SCDs Need for inaptient: ongoing hematuria that needs cysto and possible Bx, still has CBI going Quality Stroke Does the patient have a stroke diagnosis?: No VTE Prior VTE?: No VTE Risk Level:: Medical - moderate - high VTE Device Contraindication: N/A - Device Ordered VTE Drug Contraindication: Treatment Not Indicated
[2022-05-26 10:21] LABS: Hematocrit 31.7 % (37.0-47.0); Hemoglobin 10.7 g/dl (12.0-16.0)
--- NOTE | 2022-05-26 11:18 | PM.UROPN ---
Subjective Subjective Date of Service: 05/26/22 Interval history: 87 y/o female presented with acute anemia secondary to gross hematuria Physical Exam Vital Signs: Vital Signs: Last Vital Signs Temp 97.4 F 05/26/22 04:43 Pulse 104 H 05/26/22 04:52 Resp 21 H 05/26/22 04:52 BP 140/71 H 05/26/22 04:43 Pulse Ox 97 05/26/22 04:52 O2 Del Method 05/26/22 04:52 O2 Flow Rate 2 05/26/22 04:52 BMI result Body Mass Index 18.5 Const: General: healthy appearing HEENT: Head: Yes normal to inspection, Yes normocephalic and Yes atraumatic Neck: Neck: Yes normal visual inspection and Yes trachea midline Chest: Chest palpation & inspection: normal inspection of the chest Resp: Effort & Inspection: normal respiratory effort Cardio: Rate: regular rate GI: Other: lower abdomen, bladder tender to palpation Inspection: Yes normal to inspection Palpation (GI): Other GI palpation findings present Auscultation: other Skin: General skin exam: no rashes or lesions noted Extrem: General: No edema Psych: Appearance: grossly normal Urology Results Labs CBC & Chem 7: 05/26/22 10:11 05/26/22 04:30 Labs: Laboratory Results - last 24 hr 05/25/22 05/25/22 05/25/22 13:42 13:42 13:42 WBC 8.5 RBC 3.28 L D Hgb 9.4 L D Hct 28.4 L D MCV 86.6 MCH 28.7 MCHC 33.1 RDW 14.4 Plt Count 235 MPV 8.7 L Immature Gran % (Auto) 0.6 H Neut % (Auto) 88.4 H Lymph % (Auto) 6.4 L [place] % (Auto) 4.1 Eos % (Auto) 0.1 Baso % (Auto) 0.4 Lymph # (Auto) 0.5 L [place] # (Auto) 0.4 Eos # (Auto) 0.0 Baso # (Auto) 0.0 Abs Immat Gran (auto) 0.05 H Absolute Neuts (auto) 7.5 Absolute Nucleated RBC 0.000 Nucleated RBC % (auto) 0.0 PT INR Sodium 142 Potassium 3.5 Chloride 107 Carbon Dioxide 21 L Anion Gap 18 BUN 32 H D Creatinine 0.88 Estim Creat Clear Calc 32.7 Estimated GFR > 60 Random Glucose 110 Calcium 9.7 D Magnesium 1.8 Total Bilirubin 1.4 H AST 30 ALT 20 Alkaline Phosphatase 98 Total Protein 6.3 L Albumin 4.1 Stool Occult Blood COVID-19 (ALEYDA) Negative COVID-19 Clin Com See Note Blood Type Antibody Screen Crossmatch 05/25/22 05/25/22 05/25/22 14:25 15:07 15:07 WBC 8.9 RBC 3.07 L Hgb 8.8 L Hct 26.5 L MCV 86.3 MCH 28.7 MCHC 33.2 RDW 14.3 Plt Count 191 MPV 8.8 L Immature Gran % (Auto) 0.5 H Neut % (Auto) 89.2 H Lymph % (Auto) 5.6 L [place] % (Auto) 4.3 Eos % (Auto) 0.1 Baso % (Auto) 0.3 Lymph # (Auto) 0.5 L [place] # (Auto) 0.4 Eos # (Auto) 0.0 Baso # (Auto) 0.0 Abs Immat Gran (auto) 0.04 H Absolute Neuts (auto) 7.9 Absolute Nucleated RBC 0.000 Nucleated RBC % (auto) 0.0 PT 13.0 INR 1.1 Sodium 141 Potassium 3.3 Chloride 108 Carbon Dioxide 22 Anion Gap 14 BUN 31 H Creatinine 0.74 Estim Creat Clear Calc 38.9 Estimated GFR > 60 Random Glucose 81 Calcium 9.0 D Magnesium Total Bilirubin 1.2 H AST 25 ALT 17 Alkaline Phosphatase 84 Total Protein 5.4 L Albumin 3.6 Stool Occult Blood COVID-19 (ALEYDA) COVID-19 Clin Com Blood Type Antibody Screen Crossmatch 05/25/22 05/25/22 05/25/22 15:07 15:07 17:32 WBC 9.7 RBC 3.24 L Hgb 9.2 L Hct 27.8 L MCV 85.8 MCH 28.4 MCHC 33.1 RDW 14.5 Plt Count 197 MPV 8.8 L Immature Gran % (Auto) 0.3 Neut % (Auto) 82.8 H Lymph % (Auto) 9.7 L [place] % (Auto) 6.8 Eos % (Auto) 0.1 Baso % (Auto) 0.3 Lymph # (Auto) 0.9 L [place] # (Auto) 0.7 Eos # (Auto) 0.0 Baso # (Auto) 0.0 Abs Immat Gran (auto) 0.03 Absolute Neuts (auto) 8.0 Absolute Nucleated RBC 0.000 Nucleated RBC % (auto) 0.0 PT INR Sodium Potassium Chloride Carbon Dioxide Anion Gap BUN Creatinine Estim Creat Clear Calc Estimated GFR Random Glucose Calcium Magnesium Total Bilirubin AST ALT Alkaline Phosphatase Total Protein Albumin Stool Occult Blood POSITIVE COVID-19 (ALEYDA) COVID-19 [facility] Blood Type B Positive Antibody Screen NEGATIVE Crossmatch See Detail 05/25/22 05/26/22 05/26/22 22:17 04:30 04:30 WBC 4.5 L 7.2 RBC 3.43 L 3.84 L Hgb 9.9 L 10.8 L Hct 29.7 L 33.3 L MCV 86.6 86.7 MCH 28.9 28.1 MCHC 33.3 32.4 RDW 14.5 14.9 Plt Count 206 192 MPV 8.7 L 8.7 L Immature Gran % (Auto) 0.0 0.1 Neut % (Auto) 87.5 H 93.3 H Lymph % (Auto) 7.5 L 2.9 L [place] % (Auto) 4.6 3.6 Eos % (Auto) 0.2 0.0 Baso % (Auto) 0.2 0.1 Lymph # (Auto) 0.3 L 0.2 L [place] # (Auto) 0.2 0.3 Eos # (Auto) 0.0 0.0 Baso # (Auto) 0.0 0.0 Abs Immat Gran (auto) 0.00 0.01 Absolute Neuts (auto) 4.0 6.7 Absolute Nucleated RBC 0.000 0.000 Nucleated RBC % (auto) 0.0 0.0 PT INR Sodium 145 Potassium 3.3 Chloride 115 H Carbon Dioxide 16 L Anion Gap 17 BUN 25 H Creatinine 0.59 Estim Creat Clear Calc 48.9 Estimated GFR > 60 Random Glucose 116 H Calcium 8.4 D Magnesium Total Bilirubin AST ALT Alkaline Phosphatase Total Protein Albumin Stool Occult Blood COVID-19 (ALEYDA) COVID-19 [facility] Blood Type Antibody Screen Crossmatch 05/26/22 10:11 WBC RBC Hgb 10.7 L Hct 31.7 L MCV MCH MCHC RDW Plt Count MPV Immature Gran % (Auto) Neut % (Auto) Lymph % (Auto) [place] % (Auto) Eos % (Auto) Baso % (Auto) Lymph # (Auto) [place] # (Auto) Eos # (Auto) Baso # (Auto) Abs Immat Gran (auto) Absolute Neuts (auto) Absolute Nucleated RBC Nucleated RBC % (auto) PT INR Sodium Potassium Chloride Carbon Dioxide Anion Gap BUN Creatinine Estim Creat Clear Calc Estimated GFR Random Glucose Calcium Magnesium Total Bilirubin AST ALT Alkaline Phosphatase Total Protein Albumin Stool Occult Blood COVID-19 (ALEYDA) COVID-19 Clin Com Blood Type Antibody Screen Crossmatch Progress Note: A&P Assessment and plan (1) Gross hematuria: Status: Acute (2) Acute anemia: Status: Acute Plan Cystoscopy recommended Time Spent With Patient Time: Total time spent is greater than 50% in coordination of care (as documented) at patient's floor/unit and/or counseling patient: Progress Note: Quality Stroke Does the patient have a stroke diagnosis?: No
--- NOTE | 2022-05-26 11:33 | MHC.CM.PN ---
met with pt and her sister ,pt lives w/son had no previous servceis nor vaccinated dc home ?damionis
--- NOTE | 2022-05-26 14:41 | W.PM.OPN ---
Operative Note Operative Note Date of Service: 05/26/22 Narrative: PREOP DIAGNOSIS: GROSS HEMATURIA POSTOP DIAGNOSIS: GROSS HEMATURIA, BLADDER TUMOR PROCEDURE: CYSTOSCOPY EVACUATION BLADDER CLOTS FULGURATION, TRANSURETHRAL RESECTION OF BLADDER TUMOR Details of procedure: The patient was brought into the operating room placed on the OR table in supine position. 1 g of Ancef IV. General anesthesia was administered. The patient was repositioned into lithotomy position, prepped and draped in the usual sterile fashion. Time-out was done per protocol. The 24 [place] resectoscope was passed transurethrally into the bladder. Visualization of the bladder was poor due to clots. The Flud evacuator was used to irrigate out significant clot. On further visualization there was an intrinsic papillary bladder tumor about 2 cm, noted left posterior lateral towards the dome, no active bleeding noted. adjacent to the tumor medially there was thickened irregular mucosa noted. The loop resectoscope was used to resect the bladder tumor, muscle was visualized without evidence of perforation, the roller ball was used to fulgurate the base of the bladder tumor. Once there was good hemostasis the resectoscope was removed. A [address] [place] [address] catheter 5 cc balloon was passed without difficulty. The patient was brought out of anesthesia and taken to recovery in stable condition. Complications: None Drains: [address] [place] [address] catheter 5 cc balloon
[2022-05-27] MEDS: Lactated Ringers 1,000 ML 100 ML IVCONT ×3 (02:08→21:00)
[2022-05-27 08:00] VITALS: BP 109/60; PULSE 91; TEMP 36.8; O2SAT 94
[2022-05-27 08:53] LABS: Hematocrit 25.7 % (37.0-47.0); Hemoglobin 8.5 g/dl (12.0-16.0); Mean Corpuscular HGB Conc 33.1 g/dl (31.0-35.0); Mean Corpuscular Hemoglobin 28.6 pg (27.0-33.0); Mean Corpuscular Volume 86.5 fL (80.0-98.0); Mean Platelet Volume 9.6 fL (9.4-12.3); Platelet Count 167 X10*3/uL (160-400); Red Blood Count 2.97 X10*6/uL (4.20-5.50); Red Cell Distribution Width 15.5 % (11.0-16.0); White Blood Count 11.4 X10*3/uL (4.8-10.8)
--- NOTE | 2022-05-27 09:47 | PM.UROPN ---
Subjective Subjective Date of Service: 05/27/22 Patient reports: feels better and pain is less Physical Exam Vital Signs: Vital Signs: Last Vital Signs Temp 98.3 F 05/27/22 08:00 Pulse 91 05/27/22 08:00 Resp 18 05/26/22 23:36 BP 109/60 05/27/22 08:00 Pulse Ox 94 05/27/22 08:00 O2 Del Method 05/27/22 08:00 O2 Flow Rate 2 05/27/22 08:00 BMI result Body Mass Index 18.5 Const: General: healthy appearing HEENT: Head: Yes normal to inspection, Yes normocephalic and Yes atraumatic Neck: Neck: Yes normal visual inspection and Yes trachea midline Chest: Chest palpation & inspection: normal inspection of the chest Resp: Effort & Inspection: normal respiratory effort Cardio: Rate: regular rate GI: Inspection: Yes normal to inspection Palpation (GI): Soft to palpation : Other: henry - urine yellow draining well Skin: General skin exam: no rashes or lesions noted Extrem: General: No edema Psych: Appearance: grossly normal Urology Results Labs CBC & Chem 7: 05/27/22 07:48 05/26/22 04:30 Labs: Laboratory Results - last 24 hr 05/26/22 05/27/22 10:11 07:48 WBC 11.4 H RBC 2.97 L D Hgb 10.7 L 8.5 L D Hct 31.7 L 25.7 L MCV 86.5 MCH 28.6 MCHC 33.1 RDW 15.5 Plt Count 167 MPV 9.6 Absolute Nucleated RBC 0.000 Nucleated RBC % (auto) 0.0 Progress Note: A&P Assessment and plan (1) Acute anemia: Status: Acute (2) Bladder mass: Status: Acute (3) Gross hematuria: Status: Acute Plan Status post cystoscopy clot evacuation fulguration and bladder tumor resection, 05/26/2022 Urine is clear yellow Keep Henry x5 days VNA services for home for catheter care and to remove Henry in 5 days Pathology pending Follow-up with Urology as an outpatient and 7-10 days Time Spent With Patient Time: Total time spent is greater than 50% in coordination of care (as documented) at patient's floor/unit and/or counseling patient: Progress Note: Quality Stroke Does the patient have a stroke diagnosis?: No
--- NOTE | 2022-05-27 11:19 | HO.POSTANES ---
Post Anesthesia Evaluation Post Anesthesia Evaluation Vital Signs: Vital Signs Temp Pulse Resp BP Pulse Ox O2 Del Method O2 Flow Rate 05/27/22 08:00 98.3 F 91 109/60 94 Nasal Cannula 2 05/26/22 23:36 97.7 F 95 18 118/55 L 98 Nasal Cannula 2 Anesthesia: General Mental Status: Awake Pain Control: Satisfactory Nausea/Vomiting: None Hydration: Adequate Anesthesia-Related Issues: No Anes. Related Issues
[2022-05-27 11:58] VITALS: BP 138/75; PULSE 100; RESP 18; TEMP 36.8; O2SAT 95
--- NOTE | 2022-05-27 13:03 | HO.PM.IMPN ---
Subjective Subjective Date of Service: 05/27/22 Interval History: Seen in f/u for gross hematuria interval history: s/p cystoscopy with tumor biopysy yesterday , urine is clear Review of Systems no fever so ad discomfort Physical Exam Vital Signs: Vital Signs: Last Vital Signs Temp 98.3 F 05/27/22 11:58 Pulse 100 05/27/22 11:58 Resp 18 05/27/22 11:58 BP 138/75 05/27/22 11:58 Pulse Ox 95 05/27/22 11:58 O2 Del Method 05/27/22 11:58 O2 Flow Rate 2 05/27/22 11:58 BMI result Body Mass Index 18.5 Const: Other: General: AO X 3, no acute distress Resp: CTA bilateral CVS: S1,S2,RRR GI: +BS, non specific abd tenderness, no distention Skin: No rash Neuro: motor grossly intact Psych: appropriate affect Objective Data Active Medications Acetaminophen (Acetaminophen 325 Mg Tablet) 650 mg PO Q6H PRN PRN Reason: Pain, Mild (Pain Scale 1-3) Lactated Ringer's (Lr) 1,000 mls @ 100 mls/hr IVCONT .Q10H [facility] Last Admin: 05/27/22 12:04 Dose: 100 mls/hr Documented By: ALEXANDRA Cefazolin Sodium 1 gm/ Sodium (Chloride) 50 mls @ 100 mls/hr IV Q8H [facility] Last Infusion: 05/27/22 09:56 Dose: 0 mls/hr Documented By: ALEXANDRA Ondansetron HCl (Ondansetron Hcl 4 Mg/2 Ml Vial) 4 mg IVPUSH Q8H PRN PRN Reason: Nausea and Vomiting Last Admin: 05/25/22 20:44 Dose: 4 mg Documented By: KENNA Pharmacy Consult (Consult Rx Perform Med Rec) 1 each MISCELLANE ONCE PRN PRN Reason: Consult order Sodium Chloride (0.9 % Sodium Chloride Flush 3 Ml Syringe) 3 ml IVFLUSH QSHIFT [facility] Last Admin: 05/27/22 08:38 Dose: Not Given Documented By: ALEXANDRA Non-Admin Reason: IV Running Labs CBC & Chem 7: 05/27/22 07:48 05/26/22 04:30 Labs: Laboratory Results - last 24 hr 05/27/22 07:48 MCV 86.5 MCH 28.6 MCHC 33.1 RDW 15.5 Plt Count 167 MPV 9.6 Absolute Nucleated RBC 0.000 Nucleated RBC % (auto) 0.0 Assessment and Plan (1) Zaid hematuria: Status: Acute (2) Bladder mass: Status: Acute Plan 87-year-old female who presents to the hospital with hematuria found to have a bladder/uterine mass # vaginal bleeding vs hematuria--likely hematuria given bladder mass -s/p Cystoscopy yesterday with Bx # acute blood loss anemia - secondary to hematuria/bladder mass - plan for cystoscopy in a.m. - follow H&H - transfusion threshold hemoglobin 7, presently 8.5 # of note patient was evaluated by WARPER FIXER (Dr. Lin) who believes issue is urogenital and not vaginal, she recommendeed transvaginal ultrasound and patient did not tolerate this, and only had pelvic ultrasound, will consider MRI for further investigation # history of CVA - hold Plavix/aspirin DVT prophylaxis: SCDs Need for inaptient: ongoing hematuria that needs cysto and possible Bx, still has CBI going, will discuss further with family Quality Stroke Does the patient have a stroke diagnosis?: No VTE Prior VTE?: No VTE Risk Level:: Medical - moderate - high VTE Device Contraindication: N/A - Device Ordered VTE Drug Contraindication: Treatment Not Indicated
[2022-05-27 13:18] VITALS: BMI 18.5
--- NOTE | 2022-05-27 13:25 | MHC.CLN ---
PT IS MODERATELY MALNOURISHED PT WITH MILDLY DEPLETED MUSCLE MASS, 16% NON-SIGNIFICANT WT LOSS AND CHRONIC POOR PO INTAKE PT PREFERS [employer]OD[employer] DIET RX: REGULAR-APPROPRIATE PT RECEPTIVE TO TRIAL OF NUTRITION SUPPLEMENTS TO INCREASE KCALS (NO JOSEFINA FLAVOR) MONITOR PO INTAKE CLOSELY SEE ALSO FULL CLINICAL NUTRITION ASSESSMENT
[2022-05-27 15:06] VITALS: BP 138/69; PULSE 97; RESP 20; TEMP 36; O2SAT 96
[2022-05-27 19:26] VITALS: BP 123/60; PULSE 95; RESP 18; TEMP 36.7; O2SAT 93
[2022-05-27 23:55] VITALS: BP 125/63; PULSE 88; RESP 18; TEMP 37.1; O2SAT 95
[2022-05-28 03:29] VITALS: BP 143/70; PULSE 86; RESP 18; TEMP 36.6; O2SAT 94
[2022-05-28 06:49] LABS: Hematocrit 24.8 % (37.0-47.0); Hemoglobin 8.2 g/dl (12.0-16.0); Mean Corpuscular HGB Conc 33.1 g/dl (31.0-35.0); Mean Corpuscular Hemoglobin 28.9 pg (27.0-33.0); Mean Corpuscular Volume 87.3 fL (80.0-98.0); Mean Platelet Volume 9.6 fL (9.4-12.3); Platelet Count 170 X10*3/uL (160-400); Red Blood Count 2.84 X10*6/uL (4.20-5.50); Red Cell Distribution Width 15.6 % (11.0-16.0); White Blood Count 10.9 X10*3/uL (4.8-10.8)
[2022-05-28 07:30] VITALS: BP 166/79; PULSE 87; RESP 18; TEMP 36.6; O2SAT 94
--- NOTE | 2022-05-28 08:24 | PM.UROPN ---
Subjective Subjective Date of Service: 05/28/22 Patient reports: no new complaints and pain is less Interval history: 87 y/o female presented with acute anemia secondary to gross hematuria s/p cysto evacuation of bladder clots, fulguration TURBT 05/26/22 Pathology pending on bladder specimen Physical Exam Vital Signs: Vital Signs: Last Vital Signs Temp 97.8 F 05/28/22 07:30 Pulse 87 05/28/22 07:30 Resp 18 05/28/22 07:30 BP 166/79 H 05/28/22 07:30 Pulse Ox 94 05/28/22 07:30 O2 Del Method 05/28/22 07:30 O2 Flow Rate 2 05/28/22 07:30 BMI result Body Mass Index 18.5 Const: General: cooperative and no acute distress HEENT: Head: Yes normal to inspection, Yes normocephalic and Yes atraumatic Neck: Neck: Yes normal visual inspection and Yes trachea midline Chest: Chest palpation & inspection: normal inspection of the chest Resp: Effort & Inspection: normal respiratory effort Cardio: Rate: regular rate GI: Inspection: Yes normal to inspection Palpation (GI): Soft to palpation : Other: henry - urine yellow draining well Skin: General skin exam: no rashes or lesions noted Extrem: General: No edema Psych: Appearance: grossly normal Urology Results Labs CBC & Chem 7: 05/28/22 05:40 05/26/22 04:30 Labs: Laboratory Results - last 24 hr 05/27/22 05/28/22 07:48 05:40 WBC 11.4 H 10.9 H RBC 2.97 L D 2.84 L Hgb 8.5 L D 8.2 L Hct 25.7 L 24.8 L MCV 86.5 87.3 MCH 28.6 28.9 MCHC 33.1 33.1 RDW 15.5 15.6 Plt Count 167 170 MPV 9.6 9.6 Absolute Nucleated RBC 0.000 0.000 Nucleated RBC % (auto) 0.0 0.0 Progress Note: A&P Assessment and plan (1) Acute anemia: Status: Acute (2) Bladder mass: Status: Acute (3) Gross hematuria: Status: Acute Plan Status post cystoscopy clot evacuation fulguration and bladder tumor resection, 05/26/2022 Urine is clear yellow Keep Henry x5 days post procedure VNA services for home for catheter care and to remove Henry in 5 days Pathology pending Follow-up with Urology as an outpatient and 7-10 days Time Spent With Patient Time: Total time spent is greater than 50% in coordination of care (as documented) at patient's floor/unit and/or counseling patient: Progress Note: Quality Stroke Does the patient have a stroke diagnosis?: No
[2022-05-28 11:15] VITALS: BP 160/76; PULSE 94; RESP 18; TEMP 37.1; O2SAT 92
--- NOTE | 2022-05-28 12:15 | HO.PM.IMPN ---
Subjective Subjective Date of Service: 05/28/22 Interval History: Seen in f/u for gross hematuria interval history: s/p cystoscopy with tumor biopysy yesterday , urine is clear Review of Systems no fever so ad discomfort Physical Exam Vital Signs: Vital Signs: Last Vital Signs Temp 98.8 F 05/28/22 11:15 Pulse 94 05/28/22 11:15 Resp 18 05/28/22 11:15 BP 160/76 H 05/28/22 11:15 Pulse Ox 92 05/28/22 11:15 O2 Del Method 05/28/22 11:15 O2 Flow Rate 2 05/28/22 11:15 BMI result Body Mass Index 18.5 Const: Other: General: AO X 2, no acute distress Resp: CTA bilateral CVS: S1,S2,RRR GI: +BS, NT, no distention Skin: No rash Neuro: motor grossly intact Psych: appropriate affect Objective Data Active Medications Acetaminophen (Acetaminophen 325 Mg Tablet) 650 mg PO Q6H PRN PRN Reason: Pain, Mild (Pain Scale 1-3) Cefazolin Sodium 1 gm/ Sodium (Chloride) 50 mls @ 100 mls/hr IV Q8H [facility] Last Infusion: 05/28/22 11:43 Dose: 0 mls/hr Documented By: AYESHA Ondansetron HCl (Ondansetron Hcl 4 Mg/2 Ml Vial) 4 mg IVPUSH Q8H PRN PRN Reason: Nausea and Vomiting Last Admin: 05/25/22 20:44 Dose: 4 mg Documented By: KENNA Pharmacy Consult (Consult Rx Perform Med Rec) 1 each MISCELLANE ONCE PRN PRN Reason: Consult order Sodium Chloride (0.9 % Sodium Chloride Flush 3 Ml Syringe) 3 ml IVFLUSH QSHIFT [facility] Last Admin: 05/28/22 08:08 Dose: Not Given Documented By: AYESHA Non-Admin Reason: IV Running Labs CBC & Chem 7: 05/28/22 05:40 05/26/22 04:30 Labs: Laboratory Results - last 24 hr 05/28/22 05:40 MCV 87.3 MCH 28.9 MCHC 33.1 RDW 15.6 Plt Count 170 MPV 9.6 Absolute Nucleated RBC 0.000 Nucleated RBC % (auto) 0.0 Assessment and Plan (1) Zaid hematuria: Status: Acute (2) Bladder mass: Status: Acute Plan 87-year-old female who presents to the hospital with hematuria found to have a bladder/uterine mass # vaginal bleeding vs hematuria--likely hematuria given bladder mass -s/p Cystoscopy 05/26 with Bx, result pending -oncology for further recommendation on furhter testing -Follow instruction pre Uro documentation # acute blood loss anemia - secondary to hematuria/bladder mass - plan for cystoscopy in a.m. - follow H&H - transfusion threshold hemoglobin 7, presently 8.2 # of note patient was evaluated by DIESEL TRUCK TECHNICIAN (Dr. Lin) who believes issue is urogenital and not vaginal, she recommendeed transvaginal ultrasound and patient did not tolerate this, and only had pelvic ultrasound. Onoclogy consult as above # history of CVA - hold Plavix/aspirin DVT prophylaxis: SCDs Need for inaptient: ongoing hematuria that needs cysto and possible Bx, still has CBI going, will discuss further with family PT eval Attempted to reach Primary Contact? Teo Cr? Son?Rel to [facility]? [phone] NO Answer Quality Stroke Does the patient have a stroke diagnosis?: No VTE Prior VTE?: No VTE Risk Level:: Medical - moderate - high VTE Device Contraindication: N/A - Device Ordered VTE Drug Contraindication: Treatment Not Indicated
--- NOTE | 2022-05-28 15:04 | MHC.CLN ---
F/U DIET=REGULAR. SUPPLEMENT ENSURE BID PROVIDES ADDITIONAL 700 KCALS, 40 G PROTEIN. DID NOT EAT BREAKFAST OR LUNCH TODAY. ACCEPTED ENSURE WITH 1/2 REMAINING IN CARTON POST LUNCH. CONTINUE CURRENT DIET AND SUPPLEMENT. ENCOURAGE INTAKE OF MEALS, SNACKS, SUPPLEMENTS ABLE.
[2022-05-28 16:00] VITALS: BP 201/93; PULSE 100; RESP 18; TEMP 36.4; O2SAT 93
[2022-05-28] MEDS: Acetaminophen 325 MG TABLET 650 MG PO ×2 (16:28→23:56)
[2022-05-28] MEDS: 0.9 % Sodium Chloride Flush 3 ML SYRINGE IVFLUSH ×2 (16:33→23:58)
[2022-05-28 18:04] VITALS: BP 172/94
[2022-05-28] MEDS: lisinopriL 10 MG TABLET PO ×2 (18:21→21:25)
[2022-05-28 19:09] VITALS: BP 170/90; PULSE 100; RESP 18; TEMP 36.9; O2SAT 92
--- NOTE | 2022-05-28 20:19 | P.CNHO_ITS ---
Subjective - Subjective Chief complaint: Consult For: Bladder Tumor. Patient: new to practice Consult date: 05/28/22 Requesting Physician: Angel. Primary Care Provider: Maikol Ortiz MD Medical Summary: DIAGNOSIS: BLADDER TUMOR. HPI - Consult Narrative Reason for consult: Consult for: Bladder tumor. Narrative: Rashida Olvera is a 87 year old Lady, presented to the hospital on 05/26, with complaints of hematuria//bleeding from the vagina. Patient initially did not want cystoscopy or any further evaluation of her hematuria. The case was discussed with Urology. She also had a discussion with Urology along with her son and her sister at bedside, Subsequently, she was agreeable f or cystoscopy. Patient herself is citizen of [place] speaking but she understands [place] and responds well. No previous similar bleeding. She reports no vaginal spotting, and no hematuria previously. She reports lightheadedness, increased weakness, and palpitations. Patient does endorse weight loss, but not sure how much. An?Abdominal pelvic CT showed: Large amount of hemorrhage distending to the urinary bladder with a question of a bladder lesion/mass. She was evaluated initially by Cattle Broker. as this was a concern of vaginal bleeding, but after obtaining a pelvis ultrasound which also showed a large heterogeneous mass in the anterior pelvis measuring up to 9.8 cm of uncertain origin, it was decided that is most likely originating from the bladder or protruding from the uterus. Urology was consulted. Urology wanted to have patient undergo cystoscopy but patient was opposed to it initially. She was started on CBI, to stabilize. Then plan for cystoscopy next day. She received 1 unit of PRBC after her hemoglobin dropped from 9.4-8.8, with appropriate response. Discussion was also held about her cholecystitis. She initially did not want to be resuscitated, so wanted no procedural inter vention done, but her son (health care proxy) talked her out of it. He reported he wanted his mother to be full code. PAST MEDICAL HISTORY: CVA with right-sided hemiparesis, history of Raynaud's disease, hyperlipidemia, vitamin-D deficiency, HTN Lumbar degenerative disc disease Pure hypercholesterolemia Vitamin D deficiency Surgical History: History of eye surgery Family History: Family history non-contributory Social History: Housing: House Alcohol intake: never Patient Tobacco Use Status: Never used Tobacco e-Cigarette/Vaping Use: Never Used Second Hand Smoke Exposure: Yes Use of substances other than those prescribed or required for medical reasons: No Advance Directives: Yes Advance Directives Information Provided: No Advance Directives on File: No service: No Current occupational status: retired Review of Systems - Constitutional Reports system reviewed and no additional complaints, except as documented, Reports anorexia, Reports body ache(s), Reports lack of energy - Eyes Reports system reviewed and no additional complaints, except as documented, Denies blurry vision - ENT Reports system reviewed and no additional complaints, except as documented - Cardiovascular Reports system reviewed and no additional complaints, except as documented, Denies chest pain at rest - Respiratory Reports no additional respiratory complaints, Denies chest congestion - Gastrointestinal Reports system reviewed and no additional complaints, except as documented, Denies diarrhea, Denies nausea - Genitourinary Reports no additional female genitourinary complaints, Reports urinary urgency, Denies abnormal periods - Musculoskeletal Reports system reviewed and no additional complaints, except as documented, Reports body aches - Integumentary/Breasts Skin/Breast: Reports no additional skin complaints - Neurologic Reports system reviewed and no additional complaints, except as documented - Psychiatric Reports system reviewed and no additional complaints, except as documented - Endocrine Reports no additional endocrine complaints - Hematologic/Lymphatic Reports system reviewed and no additional complaints, except as documented - Allergic/Immunologic Reports system reviewed and no additional complaints, except as documented Oncology Screenings - ECOG Performance Status ECOG Performance Status: 1 [facility] Medical History: Medical History (Last Reviewed 06/08/22 @ 13:08 by ZOILA Monten[place]ro) Benign essential hypertension Lumbar degenerative disc disease Pure hypercholesterolemia Vitamin D deficiency Functional capacity: uses cane/walker Patient : No Family History: Family History (Last Reviewed 06/08/22 @ 13:08 by ZOILA [place]) Other Family history non-contributory Surgical History: Surgical History (Last Reviewed 06/08/22 @ 13:08 by ZOILA [place]ro) History of eye surgery Social History: Social History (Last Reviewed 06/08/22 @ 13:08 by ZOILA [place]) Living Situation History: Household Members: None Housing: House Do you presently have visiting nurse or other home services: No Tobacco History: Patient Tobacco Use Status: Never used Tobacco e-Cigarette/Vaping Use: Never Used Second Hand Smoke Exposure: Yes Substance Use History: Use of substances other than those prescribed or required for medical reasons : No Advance Directives: Advance Directives: Yes Advance Directives on File: Yes Advance Directives Date on File: 06/06/22 Occupation Assessmet: service: No Current occupational status: retired Home Medications and Allergies Current Medications: Current Medications Acetaminophen (Acetaminophen 325 Mg Tablet) 650 mg PO Q6H PRN PRN Reason: Pain, Mild (Pain Scale 1-3) Last Admin: 05/28/22 16:28 Dose: 650 mg Atorvastatin Calcium (Atorvastatin Calcium 40 Mg Tablet) 40 mg PO BEDTIME [facility] Cefazolin Sodium 1 gm/ Sodium (Chloride) 50 mls @ 100 mls/hr IV Q8H [facility] Last Admin: 05/28/22 18:21 Dose: 100 mls/hr Lisinopril (Lisinopril 10 Mg Tablet) 10 mg PO BID [facility]; Protocol Last Admin: 05/28/22 18:21 Dose: 10 mg Ondansetron HCl (Ondansetron Hcl 4 Mg/2 Ml Vial) 4 mg IVPUSH Q8H PRN PRN Reason: Nausea and Vomiting Last Admin: 05/25/22 20:44 Dose: 4 mg Pharmacy Consult (Consult Rx Perform Med Rec) 1 each MISCELLANE ONCE PRN PRN Reason: Consult order Sodium Chloride (0.9 % Sodium Chloride Flush 3 Ml Syringe) 3 ml IVFLUSH QSHIFT [facility] Last Admin: 05/28/22 16:33 Dose: 3 ml Vitamin D (Cholecalciferol (Vitamin D3) 25 Mcg Tablet) 50 mcg PO DAILY [facility] Home Medications Medication Instructions Recorded Confirmed Type lisinopril 10 mg tablet 1 tab PO BID 05/26/22 06/08/22 History acetaminophen 325 mg tablet 650 mg PO TID 06/08/22 06/08/22 History amlodipine 2.5 mg tablet 2.5 mg PO DAILY 06/08/22 06/08/22 History Allergies Allergy/AdvReac Type Severity Reaction Status Date / Time No Known Allergies Allergy Verified 01/14/22 11:34 Physical Exam Vital signs: Vital Signs Temp 98.4 F 05/28/22 19:09 Pulse 100 05/28/22 19:09 Resp 18 05/28/22 19:09 BP 170/90 H 05/28/22 19:09 Pulse Ox 92 05/28/22 19:09 O2 Del Method 05/28/22 19:09 O2 Flow Rate 2 05/28/22 19:09 Intake & Output 05/28/22 05/28/22 05/29/22 06:59 18:59 06:59 Intake Total 1063.333 / 2276.666 1530 / 1530 Output Total 1150 / 1350 400 / 400 Balance -86.667 / 451.810 0992 / 1130 Urine Output (Average ml/kg/hr) 2.16 0.75 Intake: Intake, Oral Amount 120 / 240 480 / 480 Intake, IV Amount 943.333 / 2036.666 1050 / 1050 ceFAZolin Sodium 1 gm In 0.9 % 50 / 150 50 / 50 Sodium Chloride 50 ml @ 100 mls /hr IV Q8H [facility] Rx#:[id number] Lactated Ringers 1,000 ml @ 100 893.333 / 4814.737 9506 / 1000 mls/hr IVCONT .Q10H [facility] Rx#: [id number] Output: Output, Urine Amount 900 / 1100 400 / 400 Output, Urine Amount (Catheter) 250 / 250 3-way Urethral 250 / 250 Other: Breakfast % Eaten 25% Lunch % Eaten 25% Dinner % Eaten 50% Urine henry Urine Color Yellow Yellow Weight 44.452 kg - Constitutional Present: mild distress - Routine HEENT Exam Head: Present: normal inspection Eye: Present: normal appearance ENT: Present: mucous membranes moist - Routine Neck Exam Present: supple - Routine Respiratory Exam Present: CTAB - Routine Cardiovascular Exam Cardiovascular: Present: RRR, S1, S2 - Routine Abdominal Exam Present: tenderness - Routine Extremities Exam Present: nontender - Routine Skin Exam Present: intact Hem/Onc Consult Result - Labs CBC & Chem 7: 06/02/22 11:06 06/03/22 08:32 Labs: Short CBC 05/28/22 Range/Units 05:40 WBC 10.9 H (4.8-10.8) X10*3/uL Hgb 8.2 L (12.0-16.0) g/dl Hct 24.8 L (37.0-47.0) % Plt Count 170 (160-400) X10*3/uL Assessment and Plan Patient Active problem list reviewed?: Yes (1) Bladder mass Status: Acute Assessment and plan: 87 Year old lady with Anemia and Hematuria. Had cystoscopy, and TURP. Final pathology is Pending. PLAN: Will make further plans based upon the final results. Thanks for the consult, Will follow along with you, CC: Dr. Ortiz. Dr. Heaton. 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 Suspicious for lymphovascular invasion. I shared the results with her son. Discussed options for treatment including palliative radiation therapy for control of bleeding. Alternatively can give a trial of pembrolizumab. For now he feels she is too weak to tolerate any sort of treatment. He would prefer that she go to rehab, get some strength back and then decide next course of action. Will respect their wishes. He will return to see me as an outpatient. - Time Spent With Patient Time Spent with Patient (in minutes): 30
[2022-05-28] MEDS: Atorvastatin Calcium 40 MG TABLET PO (21:25)
[2022-05-29] VITALS (7 sets, daily range): BP systolic 154–180; BP diastolic 76–84; PULSE 79–105; RESP 16–20; TEMP 36.8–38.2; O2SAT 92–95
[2022-05-29 09:45] LABS: Hematocrit 26.8 % (37.0-47.0); Mean Corpuscular HGB Conc 33.6 g/dl (31.0-35.0); Mean Corpuscular Hemoglobin 28.7 pg (27.0-33.0); Mean Corpuscular Volume 85.4 fL (80.0-98.0); Mean Platelet Volume 9.3 fL (9.4-12.3); Platelet Count 190 X10*3/uL (160-400); Red Blood Count 3.14 X10*6/uL (4.20-5.50); Red Cell Distribution Width 15.1 % (11.0-16.0); White Blood Count 8.4 X10*3/uL (4.8-10.8)
[2022-05-29 10:57] LABS: Blood Urea Nitrogen 13 mg/dL (9-16); Calcium 8.2 mg/dL (8.4-10.2); Creatinine Clr Calc Pharmacy 57.7; Estimated Glomerular Filt Rate > 60; Glucose Random 114 mg/dL (60-115)
[2022-05-29] MEDS: lisinopriL 10 MG TABLET PO ×2 (11:05→19:51)
[2022-05-29] MEDS: 0.9 % Sodium Chloride Flush 3 ML SYRINGE IVFLUSH ×2 (11:08→17:42)
[2022-05-29 11:20] LABS: Anion Gap 10 (12-20); Carbon Dioxide 27 mmol/L (22-29); Chloride 107 mmol/L (96-108); Potassium 2.9 mmol/L (3.3-5.1); Sodium 141 mmol/L (135-145)
[2022-05-29] MEDS: Cholecalciferol (Vitamin D3) 25 MCG TABLET 50 MCG PO (11:39)
[2022-05-29] MEDS: Acetaminophen 325 MG TABLET 650 MG PO ×2 (11:39→18:08)
--- NOTE | 2022-05-29 12:27 | P.PNIM_ITS ---
Subjective Subjective Date of Service: 05/29/22 Interval History: Seen in f/u for gross hematuria interval history: s/p cystoscopy with bladder tumor bx, no bleeding, BP high Review of Systems no fever so ad discomfort Physical Exam Vital Signs: Vital Signs: Last Vital Signs Temp 98.6 F 05/29/22 11:23 Pulse 105 H 05/29/22 11:23 Resp 18 05/29/22 11:23 BP 180/80 H 05/29/22 11:23 Pulse Ox 93 05/29/22 11:23 O2 Del Method 05/29/22 11:23 O2 Flow Rate 2 05/29/22 11:23 BMI result Body Mass Index 18.5 Const: Other: General: AO X 2, no acute distress Resp: CTA bilateral CVS: S1,S2,RRR GI: +BS, NT, no distention Skin: No rash Neuro: motor grossly intact Psych: appropriate affect Objective Data Active Medications Acetaminophen (Acetaminophen 325 Mg Tablet) 650 mg PO Q6H PRN PRN Reason: Pain, Mild (Pain Scale 1-3) Last Admin: 05/29/22 11:39 Dose: 650 mg Documented By: GLENNA Atorvastatin Calcium (Atorvastatin Calcium 40 Mg Tablet) 40 mg PO BEDTIME [facility] Last Admin: 05/28/22 21:25 Dose: 40 mg Documented By: RENEA Cefazolin Sodium 1 gm/ Sodium (Chloride) 50 mls @ 100 mls/hr IV Q8H [facility] Last Infusion: 05/29/22 12:06 Dose: 0 mls/hr Documented By: LAWRENCE Lisinopril (Lisinopril 10 Mg Tablet) 10 mg PO BID [facility]; Protocol Last Admin: 05/29/22 11:05 Dose: 10 mg Documented By: GLENNA Ondansetron HCl (Ondansetron Hcl 4 Mg/2 Ml Vial) 4 mg IVPUSH Q8H PRN PRN Reason: Nausea and Vomiting Last Admin: 05/25/22 20:44 Dose: 4 mg Documented By: KENNA Pharmacy Consult (Consult Rx Perform Med Rec) 1 each MISCELLANE ONCE PRN PRN Reason: Consult order Sodium Chloride (0.9 % Sodium Chloride Flush 3 Ml Syringe) 3 ml IVFLUSH QSHIFT [facility] Last Admin: 05/29/22 11:08 Dose: 3 ml Documented By: GLENNA Vitamin D (Cholecalciferol (Vitamin D3) 25 Mcg Tablet) 50 mcg PO DAILY [facility] Last Admin: 05/29/22 11:39 Dose: 50 mcg Documented By: GLENNA Labs CBC & Chem 7: 05/29/22 09:21 05/29/22 09:21 Labs: Laboratory Results - last 24 hr 05/29/22 05/29/22 05/29/22 09:21 09:21 09:21 MCV 85.4 MCH 28.7 MCHC 33.6 RDW 15.1 Plt Count 190 MPV 9.3 L Absolute Nucleated RBC 0.000 Nucleated RBC % (auto) 0.0 Anion Gap 10 L Estim Creat Clear Calc 57.7 Estimated GFR > 60 Random Glucose 114 Calcium 8.2 L Blood Type B Positive Antibody Screen NEGATIVE Assessment and Plan (1) Zaid hematuria: Status: Acute (2) Bladder mass: Status: Acute Plan 87-year-old female who presents to the hospital with hematuria found to have a bladder/uterine mass # vaginal bleeding vs hematuria--likely hematuria given bladder mass -s/p Cystoscopy 05/26 with Bx, result pending -oncology following and will make plan base on final bx result -Follow instruction pre Uro documentation -Remove henry on 05/31 -Follow-up with Urology as an outpatient and 7-10 days # acute blood loss anemia - secondary to hematuria/bladder mass - plan for cystoscopy in a.m. - follow H&H - transfusion threshold hemoglobin 7, presently 9 # of note patient was evaluated by PROFILE GRINDER TECHNICIAN (Dr. Lin) who believes issue is urogenital and not vaginal, she recommendeed transvaginal ultrasound and patient did not tolerate this, and only had pelvic ultrasound. Onoclogy consult as above # history of CVA - hold Plavix/aspirin #HTN--restarted on home Lisinopril 10 bid, add Norvasc DVT prophylaxis: SCDs Need for inaptient: ongoing hematuria that needs cysto and possible Bx, still has CBI going, will discuss further with family PT recommend STR, I concur Attempted to reach Primary Contact? TayoTeo? Son?Rel to Pat? [phone] NO Answer Quality Stroke Does the patient have a stroke diagnosis?: No VTE Prior VTE?: No VTE Risk Level:: Medical - moderate - high VTE Device Contraindication: N/A - Device Ordered VTE Drug Contraindication: Treatment Not Indicated
[2022-05-29] MEDS: amLODIPine Besylate 2.5 MG TABLET PO (12:52)
--- NOTE | 2022-05-29 13:57 | P.CDIC_ITS ---
CDI Concurrent Query Documentation Clarification: PHYSICIAN'S DOCUMENTATION REQUEST Date of Query: 05/29/22 0584 Patient Name: Rashida Olvera Admit Date: 05/25/22 Dear Doctor, A review of the medical record indicates additional documentation may be needed. Please review below and update the documentation accordingly. Clinical Indicators: Is there a diagnosis that correlates with the findings below: Risk Factors/Clinical Indicators/Treatments BMI: 18.5 HEIGHT: 5FT 1IN WEIGHT: 44.452 OTHER INDICATORS: Per nutrition consult on 05/27: Patient moderately malnourished If possible, please provide an associated diagnosis related to the abnormal BMI, such as: Malnutrition: * Mild * Moderate * Severe * Other (please specify) * Unable to determine For a BMI <= 19: * Underweight * Weight loss * Cachexia * Anorexia Or: * BMI is not significant * Other (please specify) * Unable to determine Use of terms such as suspected, likely, concern for, or probable (associated with a specific diagnosis that is being evaluated, monitored, or treated as if it exists) are acceptable and can be coded in the inpatient setting, when documented at the time of discharge. Thank you, Linda Felix MS, RN, CCRN Extension: [phone] Please use your independent medical judgment in providing your response. THIS QUERY IS PART OF THE PERMANENT MEDICAL RECORD Provider Response: Moderate Protein-Calorie Malnutrition
[2022-05-29] MEDS: Atorvastatin Calcium 40 MG TABLET PO (19:51)
[2022-05-30] VITALS (7 sets, daily range): BP systolic 145–178; BP diastolic 72–88; PULSE 95–105; RESP 16–18; TEMP 36.4–37.6; O2SAT 92–95
[2022-05-30] MEDS: 0.9 % Sodium Chloride Flush 3 ML SYRINGE IVFLUSH ×2 (02:20→09:13)
--- NOTE | 2022-05-30 08:36 | HO.PM.IMPN ---
Subjective Subjective Date of Service: 05/30/22 Interval History: Seen in f/u for gross hematuria interval history: No more hematuria, Bx has confirmed bladder cancer Review of Systems no fever so ad discomfort Physical Exam Vital Signs: Vital Signs: Last Vital Signs Temp 97.9 F 05/30/22 07:55 Pulse 96 05/30/22 07:55 Resp 18 05/30/22 07:55 BP 178/80 H 05/30/22 07:55 Pulse Ox 93 05/30/22 07:55 O2 Del Method 05/30/22 07:55 O2 Flow Rate 2 05/30/22 07:55 BMI result Body Mass Index 18.5 Const: Other: General: AO X 2, no acute distress Resp: CTA bilateral CVS: S1,S2,RRR GI: +BS, NT, no distention Skin: No rash Neuro: motor grossly intact Psych: appropriate affect Objective Data Active Medications Acetaminophen (Acetaminophen 325 Mg Tablet) 650 mg PO Q6H PRN PRN Reason: Pain, Mild (Pain Scale 1-3) Last Admin: 05/29/22 18:08 Dose: 650 mg Documented By: JUAN Amlodipine Besylate (Amlodipine Besylate 2.5 Mg Tablet) 2.5 mg PO DAILY [facility]; Protocol Last Admin: 05/29/22 12:52 Dose: 2.5 mg Documented By: GLENNA Atorvastatin Calcium (Atorvastatin Calcium 40 Mg Tablet) 40 mg PO BEDTIME [facility] Last Admin: 05/29/22 19:51 Dose: 40 mg Documented By: TONE Cefazolin Sodium 1 gm/ Sodium (Chloride) 50 mls @ 100 mls/hr IV Q8H [facility] Last Infusion: 05/30/22 03:31 Dose: 0 mls/hr Documented By: TONE Lisinopril (Lisinopril 10 Mg Tablet) 10 mg PO BID [facility]; Protocol Last Admin: 05/29/22 19:51 Dose: 10 mg Documented By: TONE Ondansetron HCl (Ondansetron Hcl 4 Mg/2 Ml Vial) 4 mg IVPUSH Q8H PRN PRN Reason: Nausea and Vomiting Last Admin: 05/25/22 20:44 Dose: 4 mg Documented By: KENNA Pharmacy Consult (Consult Rx Perform Med Rec) 1 each MISCELLANE ONCE PRN PRN Reason: Consult order Sodium Chloride (0.9 % Sodium Chloride Flush 3 Ml Syringe) 3 ml IVFLUSH QSHIFT [facility] Last Admin: 05/30/22 02:20 Dose: 3 ml Documented By: TONE Vitamin D (Cholecalciferol (Vitamin D3) 25 Mcg Tablet) 50 mcg PO DAILY [facility] Last Admin: 05/29/22 11:39 Dose: 50 mcg Documented By: GLENNA Labs CBC & Chem 7: 05/29/22 09:21 05/29/22 09:21 Labs: Laboratory Results - last 24 hr 05/29/22 05/29/22 05/29/22 09:21 09:21 09:21 MCV 85.4 MCH 28.7 MCHC 33.6 RDW 15.1 Plt Count 190 MPV 9.3 L Absolute Nucleated RBC 0.000 Nucleated RBC % (auto) 0.0 Anion Gap 10 L Estim Creat Clear Calc 57.7 Estimated GFR > 60 Random Glucose 114 Calcium 8.2 L Blood Type B Positive Antibody Screen NEGATIVE Assessment and Plan (1) Zaid hematuria: Status: Acute (2) Bladder mass: Status: Acute Plan 87-year-old female who presents to the hospital with hematuria found to have a bladder/uterine mass # vaginal bleeding vs hematuria--likely hematuria given bladder mass -s/p Cystoscopy 05/26 with Bx, result confirmed bladder cancer, oncology to dicusss treatment option with family -oncology following and will make plan base on final bx result -Follow instruction pre Uro documentation -Remove henry on 05/31 -Follow-up with Urology as an outpatient and 7-10 days # acute blood loss anemia - secondary to hematuria/bladder mass - plan for cystoscopy in a.m. - follow H&H - transfusion threshold hemoglobin 7, presently 9 # of note patient was evaluated by COMPOSING MACHINE OPERATOR (Dr. Lin) who believes issue is urogenital and not vaginal, she recommendeed transvaginal ultrasound and patient did not tolerate this, and only had pelvic ultrasound, he also recommended MRI to assist in diagnosis and this was not done in light of Bx done and now confirmed diagnosis, if oncology thinks it needs to be done will do it # history of CVA - hold Plavix/aspirin #HTN--restarted on home Lisinopril 10 bid, add Norvasc DVT prophylaxis: SCDs Need for inaptient: ongoing hematuria that needs cysto and possible Bx, still has CBI going, will discuss further with family PT recommend STR, I concur Attempted to reach Primary Contact? Tayo,Teo? Son?Rel to [facility]? [phone] Quality Stroke Does the patient have a stroke diagnosis?: No VTE Prior VTE?: No VTE Risk Level:: Medical - moderate - high VTE Device Contraindication: N/A - Device Ordered VTE Drug Contraindication: Treatment Not Indicated
[2022-05-30] MEDS: Cholecalciferol (Vitamin D3) 25 MCG TABLET 50 MCG PO (08:48)
[2022-05-30] MEDS: amLODIPine Besylate 2.5 MG TABLET PO (08:48)
[2022-05-30] MEDS: lisinopriL 10 MG TABLET PO ×2 (08:48→21:05)
--- NOTE | 2022-05-30 10:34 | MHC.CLN ---
F/U DIET=REGULAR. SUPPLEMENT ENSURE BID PROVIDES ADDITIONAL 700 KCALS, 40 G PROTEIN. INTAKE AT MEALS X 2 DAYS VARIABLE, 0-100%. DX BLADDER CANCER CONFIRMED WITH BIOPSY. CONTINUE CURRENT DIET AND SUPPLEMENT. ENCOURAGE INTAKE OF MEALS, SNACKS, SUPPLEMENTS ABLE.
--- NOTE | 2022-05-30 13:31 | MHC.CM.PN ---
Addendum entered by Sonia Alejandro 05/30/22 15:12: CM RECEIVED A RETURN CALL FROM PTS SON, REBECCA, WHO REPORTS CONCERN THAT THE PT STILL SEEMS OUT OF IT AND IS A LOT OF PAIN HE SAYS JUST THIS PAST THURSDAY THE PT WAS WALKING AROUND AND DOING HER OWN LAUNDRY HE IS OPEN TO REFERRALS BEING MADE TO BOTH STR AND [facility] HE ALSO ASKS FOR A REFERRAL TO [place] SHE WAS THERE AFTER HER STROKE LAST OCTOBER HE ALSO EXPLAINS HE THOUGHT SHE WAS HAVING ANOTHER STROKE WHEN HE FOUND HER DUE TO HER CONDITION HE WILL DISCUSS THIS FURTHER WITH THE MD LUTZ MESSAGE SENT TO REQUESTING HE CONTACT PTS SON PTS SON ALSO AWARE PT HAS REFUSED TO WORK WITH PT THE LAST TWO DAYS HE WILL TRY TO BE HERE TOMORROW SO THAT HE CAN ENCOURAGE HER TO PARTICIPATE Original Note: CM INFORMED PTS FAMILY IS HOPING SHE CAN GO TO STR CM ATTEMPTED TO CALL PTS SON, REBECCA [phone] A VM MESSAGE WAS LEFT INFORMING HIM A REFERRAL WOULD BE PLACED TO SEVERAL SNFS [facility] ALSO REQUESTED A RETURN CALL A BROAD REFERRAL WAS SENT DUE TO PT NOT BEING COVID VACCINATED
[2022-05-30] MEDS: Atorvastatin Calcium 40 MG TABLET PO (21:05)
[2022-05-31] VITALS: BP 168/74; PULSE 100; RESP 16; TEMP 37.3; O2SAT 92
[2022-05-31 03:47] VITALS: BP 158/82; PULSE 97; RESP 16; TEMP 37.3; O2SAT 92
[2022-05-31] MEDS: 0.9 % Sodium Chloride Flush 3 ML SYRINGE IVFLUSH ×4 (03:52→19:35)
[2022-05-31 07:47] VITALS: BP 163/81; PULSE 103; RESP 15; TEMP 37.6; O2SAT 91
--- NOTE | 2022-05-31 07:54 | P.PNIM_ITS ---
Subjective Subjective Date of Service: 05/31/22 Interval History: Seen in f/u for gross hematuria interval history: No more hematuria, Bx has confirmed bladder cancer, sister at bedside, she refusing to work with PT and eating little Review of Systems no fever so ad discomfort Physical Exam Vital Signs: Vital Signs: Last Vital Signs Temp 99.6 F 05/31/22 07:47 Pulse 103 H 05/31/22 07:47 Resp 15 05/31/22 07:47 BP 163/81 H 05/31/22 07:47 Pulse Ox 91 L 05/31/22 07:47 O2 Del Method 05/31/22 07:47 O2 Flow Rate 2.0 05/31/22 07:47 BMI result Body Mass Index 18.5 Const: Other: General: AO X 2, no acute distress Resp: CTA bilateral CVS: S1,S2,RRR GI: +BS, NT, no distention Skin: No rash Neuro: motor grossly intact Psych: appropriate affect Objective Data Active Medications Acetaminophen (Acetaminophen 325 Mg Tablet) 650 mg PO Q6H PRN PRN Reason: Pain, Mild (Pain Scale 1-3) Last Admin: 05/29/22 18:08 Dose: 650 mg Documented By: JUAN Amlodipine Besylate (Amlodipine Besylate 2.5 Mg Tablet) 2.5 mg PO DAILY [facility]; Protocol Last Admin: 05/30/22 08:48 Dose: 2.5 mg Documented By: LINUS Atorvastatin Calcium (Atorvastatin Calcium 40 Mg Tablet) 40 mg PO BEDTIME [facility] Last Admin: 05/30/22 21:05 Dose: 40 mg Documented By: RENEA Cefazolin Sodium 1 gm/ Sodium (Chloride) 50 mls @ 100 mls/hr IV Q8H [facility] Last Infusion: 05/31/22 06:05 Dose: 0 mls/hr Documented By: RENEA Lisinopril (Lisinopril 10 Mg Tablet) 10 mg PO BID [facility]; Protocol Last Admin: 05/30/22 21:05 Dose: 10 mg Documented By: RENEA Ondansetron HCl (Ondansetron Hcl 4 Mg/2 Ml Vial) 4 mg IVPUSH Q8H PRN PRN Reason: Nausea and Vomiting Last Admin: 05/25/22 20:44 Dose: 4 mg Documented By: KENNA Pharmacy Consult (Consult Rx Perform Med Rec) 1 each MISCELLANE ONCE PRN PRN Reason: Consult order Sodium Chloride (0.9 % Sodium Chloride Flush 3 Ml Syringe) 3 ml IVFLUSH QSHIFT [facility] Last Admin: 05/31/22 03:52 Dose: 3 ml Documented By: RENEA Vitamin D (Cholecalciferol (Vitamin D3) 25 Mcg Tablet) 50 mcg PO DAILY [facility] Last Admin: 05/30/22 08:48 Dose: 50 mcg Documented By: LINUS Labs CBC & Chem 7: 05/29/22 09:21 05/29/22 09:21 Assessment and Plan (1) Zaid hematuria: Status: Acute (2) Bladder mass: Status: Acute Plan 87-year-old female who presents to the hospital with hematuria found to have a bladder/uterine mass # vaginal bleeding vs hematuria--likely hematuria given bladder mass -s/p Cystoscopy 05/26 with Bx, result confirmed bladder cancer, oncology to dicusss treatment option with family -oncology following and will make, 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 - follow H&H - transfusion threshold hemoglobin 7, presently 9 # of note patient was evaluated by MORTAR MAN (Dr. Lin) who believes issue is u rogenital and not vaginal, she recommendeed transvaginal ultrasound and patient did not tolerate this, and only had pelvic ultrasound, he also recommended MRI to assist in diagnosis and this was not done in light of Bx done and now confirmed diagnosis, if oncology thinks it needs to be done will do it # history of CVA - hold Plavix/aspirin #HTN--restarted on home Lisinopril 10 bid, add Norvasc #moderate protein calory malnutrition--encourage oral food, ensure DVT prophylaxis: SCDs Need for inaptient: ongoing hematuria that needs cysto and possible Bx, still has CBI going, will discuss further with family Attempted to reach Primary Contact? Tayo,Teo? Son?Rel to [facility]? [phone] Quality Stroke Does the patient have a stroke diagnosis?: No VTE Prior VTE?: No VTE Risk Level:: Medical - moderate - high VTE Device Contraindication: N/A - Device Ordered VTE Drug Contraindication: Treatment Not Indicated
[2022-05-31] MEDS: lisinopriL 10 MG TABLET PO ×2 (08:56→19:35)
[2022-05-31] MEDS: Cholecalciferol (Vitamin D3) 25 MCG TABLET 50 MCG PO (08:56)
[2022-05-31] MEDS: amLODIPine Besylate 2.5 MG TABLET PO (08:56)
[2022-05-31 11:27] VITALS: BP 124/74; PULSE 103; RESP 18; TEMP 37.4; O2SAT 92
[2022-05-31 15:21] VITALS: BP 157/76; PULSE 117; RESP 30; TEMP 37.2; O2SAT 91
[2022-05-31] MEDS: Acetaminophen 325 MG TABLET 650 MG PO (17:23)
[2022-05-31 19:24] VITALS: BP 151/67; PULSE 122; RESP 26; TEMP 36.5; O2SAT 94
[2022-05-31] MEDS: Atorvastatin Calcium 40 MG TABLET PO (19:35)
[2022-06-01] VITALS (7 sets, daily range): BP systolic 120–150; BP diastolic 60–70; PULSE 89–100; RESP 17–24; TEMP 36.6–37.2; O2SAT 93–95
[2022-06-01] MEDS: lisinopriL 10 MG TABLET PO ×2 (08:18→21:01)
[2022-06-01] MEDS: Cholecalciferol (Vitamin D3) 25 MCG TABLET 50 MCG PO (08:18)
[2022-06-01] MEDS: amLODIPine Besylate 2.5 MG TABLET PO (08:18)
[2022-06-01] MEDS: 0.9 % Sodium Chloride Flush 3 ML SYRINGE IVFLUSH ×3 (08:19→21:03)
--- NOTE | 2022-06-01 08:41 | P.PNIM_ITS ---
Subjective Subjective Date of Service: 06/01/22 Interval History: Seen in f/u for gross hematuria interval history: No more hematuria, Bx has confirmed bladder cancer, sister at bedside, she refusing to work with PT and eating little, Henry cath removed yesterday and had retention over night Review of Systems no fever so ad discomfort Physical Exam Vital Signs: Vital Signs: Last Vital Signs Temp 98.1 F 06/01/22 08:00 Pulse 89 06/01/22 08:00 Resp 20 06/01/22 08:00 BP 146/70 H 06/01/22 08:00 Pulse Ox 93 06/01/22 08:00 O2 Del Method 06/01/22 08:00 O2 Flow Rate 2.0 06/01/22 08:00 BMI result Body Mass Index 18.5 Objective Data Active Medications Acetaminophen (Acetaminophen 325 Mg Tablet) 650 mg PO Q6H PRN PRN Reason: Pain, Mild (Pain Scale 1-3) Last Admin: 05/31/22 17:23 Dose: 650 mg Documented By: LINUS Amlodipine Besylate (Amlodipine Besylate 2.5 Mg Tablet) 2.5 mg PO DAILY [facility]; Protocol Last Admin: 06/01/22 08:18 Dose: 2.5 mg Documented By: LINUS Atorvastatin Calcium (Atorvastatin Calcium 40 Mg Tablet) 40 mg PO BEDTIME [facility] Last Admin: 05/31/22 19:35 Dose: 40 mg Documented By: TOD Cefazolin Sodium 1 gm/ Sodium (Chloride) 50 mls @ 100 mls/hr IV Q8H [facility] Last Admin: 06/01/22 08:18 Dose: 100 mls/hr Documented By: LINUS Lisinopril (Lisinopril 10 Mg Tablet) 10 mg PO BID [facility]; Protocol Last Admin: 06/01/22 08:18 Dose: 10 mg Documented By: LINUS Ondansetron HCl (Ondansetron Hcl 4 Mg/2 Ml Vial) 4 mg IVPUSH Q8H PRN PRN Reason: Nausea and Vomiting Last Admin: 05/25/22 20:44 Dose: 4 mg Documented By: KENNA Pharmacy Consult (Consult Rx Perform Med Rec) 1 each MISCELLANE ONCE PRN PRN Reason: Consult order Sodium Chloride (0.9 % Sodium Chloride Flush 3 Ml Syringe) 3 ml IVFLUSH QSHIFT [facility] Last Admin: 06/01/22 08:19 Dose: 3 ml Documented By: LINUS Vitamin D (Cholecalciferol (Vitamin D3) 25 Mcg Tablet) 50 mcg PO DAILY [facility] Last Admin: 06/01/22 08:18 Dose: 50 mcg Documented By: LINUS Labs CBC & Chem 7: 05/29/22 09:21 05/29/22 09:21 Assessment and Plan (1) Zaid hematuria: Status: Acute (2) Bladder mass: Status: Acute Plan 87-year-old female who presents to the hospital with hematuria found to have a bladder/uterine mass # vaginal bleeding vs hematuria--likely hematuria given bladder mass -s/p Cystoscopy 05/26 with Bx, result confirmed bladder cancer, oncology to dicusss treatment option with family -oncology following and will make, 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 - follow H&H - transfusion threshold hemoglobin 7, presently 9 # of note patient was evaluated by LITIGATION DOCKET MANAGER (Dr. Lin) who believes issue is urogenital and not vaginal, she recommendeed transvaginal ultrasound and patient did not tolerate this, and only had pelvic ultrasound, he also recommended MRI to assist in diagnosis and this was not done in light of Bx done and now confirmed diagnosis, if oncology thinks it needs to be done will do it # history of CVA - hold Plavix/aspirin #HTN--restarted on home Lisinopril 10 bid, add Norvasc #moderate protein calory malnutrition--encourage oral food, ensure DVT prophylaxis: SCDs Need for inaptient: ongoing hematuria that needs cysto and possible Bx, still has CBI going, will discuss further with family Attempted to reach Primary Contact? Teo Cr? Son?Rel to Pat? [phone] Quality Stroke Does the patient have a stroke diagnosis?: No VTE Prior VTE?: No VTE Risk Level:: Medical - moderate - high VTE Device Contraindication: N/A - Device Ordered VTE Drug Contraindication: Treatment Not Indicated
[2022-06-01] MEDS: Atorvastatin Calcium 40 MG TABLET PO (21:01)
[2022-06-02] VITALS (7 sets, daily range): BP systolic 102–152; BP diastolic 57–68; PULSE 86–95; RESP 16–18; TEMP 36.6–37; O2SAT 91–97
[2022-06-02] MEDS: Cholecalciferol (Vitamin D3) 25 MCG TABLET 50 MCG PO (09:20)
[2022-06-02] MEDS: 0.9 % Sodium Chloride Flush 3 ML SYRINGE IVFLUSH ×3 (09:21→21:47)
[2022-06-02] MEDS: lisinopriL 10 MG TABLET PO ×2 (09:21→21:38)
[2022-06-02] MEDS: amLODIPine Besylate 2.5 MG TABLET PO (09:21)
--- NOTE | 2022-06-02 09:53 | P.PNIM_ITS ---
Subjective Subjective Date of Service: 06/02/22 Interval History: Seen in f/u for gross hematuria interval history: No more hematuria, Bx has confirmed bladder cancer, patient has been amotivated to participating in anything, eating little, Review of Systems no fever so ad discomfort Physical Exam Vital Signs: Vital Signs: Last Vital Signs Temp 98.6 F 06/02/22 06:51 Pulse 86 06/02/22 06:51 Resp 18 06/02/22 06:51 BP 152/68 H 06/02/22 06:51 Pulse Ox 93 06/02/22 06:51 O2 Del Method 06/02/22 06:51 O2 Flow Rate 2 06/02/22 03:17 BMI result Body Mass Index 18.5 Const: Other: General: AO X 2, no acute distress Resp: CTA bilateral CVS: S1,S2,RRR GI: +BS, NT, no distention Skin: No rash Neuro: motor grossly intact Psych: appropriate affect Objective Data Active Medications Acetaminophen (Acetaminophen 325 Mg Tablet) 650 mg PO Q6H PRN PRN Reason: Pain, Mild (Pain Scale 1-3) Last Admin: 05/31/22 17:23 Dose: 650 mg Documented By: LINUS Amlodipine Besylate (Amlodipine Besylate 2.5 Mg Tablet) 2.5 mg PO DAILY [facility]; Protocol Last Admin: 06/02/22 09:21 Dose: 2.5 mg Documented By: ALEXANDRA Atorvastatin Calcium (Atorvastatin Calcium 40 Mg Tablet) 40 mg PO BEDTIME [facility] Last Admin: 06/01/22 21:01 Dose: 40 mg Documented By: TONE Cefazolin Sodium 1 gm/ Sodium (Chloride) 50 mls @ 100 mls/hr IV Q8H [facility] Last Admin: 06/02/22 09:21 Dose: 100 mls/hr Documented By: ALEXANDRA Lisinopril (Lisinopril 10 Mg Tablet) 10 mg PO BID [facility]; Protocol Last Admin: 06/02/22 09:21 Dose: 10 mg Documented By: ALEXANDRA Ondansetron HCl (Ondansetron Hcl 4 Mg/2 Ml Vial) 4 mg IVPUSH Q8H PRN PRN Reason: Nausea and Vomiting Last Admin: 05/25/22 20:44 Dose: 4 mg Documented By: KENNA Pharmacy Consult (Consult Rx Perform Med Rec) 1 each MISCELLANE ONCE PRN PRN Reason: Consult order Sodium Chloride (0.9 % Sodium Chloride Flush 3 Ml Syringe) 3 ml IVFLUSH QSHIFT [facility] Last Admin: 06/02/22 09:21 Dose: 3 ml Documented By: ALEXANDRA Vitamin D (Cholecalciferol (Vitamin D3) 25 Mcg Tablet) 50 mcg PO DAILY [facility] Last Admin: 06/02/22 09:20 Dose: 50 mcg Documented By: ALEXANDRA Labs CBC & Chem 7: 05/29/22 09:21 05/29/22 09:21 Assessment and Plan (1) Zaid hematuria: Status: Acute (2) Bladder mass: Status: Acute Plan 87-year-old female who presents to the hospital with hematuria found to have a bladder/uterine mass # Initially thought to have vaginal bleeding but It turned out to be hematuria from bladder mass -s/p Cystoscopy 05/26 with Bx, result confirmed bladder cancer, oncology to [facility] treatment option with family 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 - follow H&H - transfusion threshold hemoglobin 7, presently 9, check today # of note patient was evaluated by SCOURING TRAIN OPERATOR CHIEF (Dr. Lin) who believes issue is urogenital and not vaginal, she recommendeed transvaginal ultrasound and patient did not tolerate this, and only had pelvic ultrasound, he also recommended MRI to assist in diagnosis and this was not done in light of Bx done and now confirmed diagnosis, if oncology thinks it needs to be done will do it # history of CVA - hold Plavix/aspirin #HTN--restarted on home Lisinopril 10 bid, add Norvasc #moderate protein calory malnutrition--encourage oral food, ensure DVT prophylaxis: SCDs Need for inaptient: hospitalization for hematuria, bladder cancer and now needs palcement Primary Contact? Tayo,Teo? Son?Rel to [facility]? [phone] Quality Stroke Does the patient have a stroke diagnosis?: No VTE Prior VTE?: No VTE Risk Level:: Medical - moderate - high VTE Device Contraindication: N/A - Device Ordered VTE Drug Contraindication: Treatment Not Indicated
[2022-06-02 11:31] LABS: Hematocrit 27.3 % (37.0-47.0); Mean Corpuscular Hemoglobin 28.4 pg (27.0-33.0); Mean Corpuscular Volume 86.1 fL (80.0-98.0); Mean Platelet Volume 9.4 fL (9.4-12.3); Platelet Count 292 X10*3/uL (160-400); Red Blood Count 3.17 X10*6/uL (4.20-5.50); Red Cell Distribution Width 14.6 % (11.0-16.0); White Blood Count 7.2 X10*3/uL (4.8-10.8)
[2022-06-02 11:37] LABS: Anion Gap 12 (12-20); Blood Urea Nitrogen 19 mg/dL (9-16); Carbon Dioxide 29 mmol/L (22-29); Chloride 102 mmol/L (96-108); Creatinine Clr Calc Pharmacy 58.8; Estimated Glomerular Filt Rate > 60; Glucose Random 125 mg/dL (60-115); Potassium 3.2 mmol/L (3.3-5.1); Sodium 140 mmol/L (135-145)
--- NOTE | 2022-06-02 12:12 | P.CDIC_ITS ---
CDI Concurrent Query Documentation Clarification: PHYSICIAN'S DOCUMENTATION REQUEST Date of Query: 06/02/22 1213 Patient Name: Rashida Olvera Admit Date: 05/25/22 Dear Doctor, A review of the medical record indicates additional documentation may be needed. Please review below and update the documentation accordingly. Clinical Indicators: Is there a diagnosis that correlates with the findings below: Risk Factors/Clinical Indicators/Treatments POA/RESOLVED/TREAT/RULE OUT -Per provider progress note on 06/01: she refusing to work with PT and eating little -RR: 05/31: 30 06/01: 24 -HR: 05/30: 105 05/31: 122 -Patient requiring supplemental O2 to ke ep O2 above 90% Recognized standard criteria for respiratory fail ure includes: (Source: [facility] Hospitalist Jun 2013) Symptoms: ? Tachypnea, SOB, dyspnea ? Pallor or cyanosis ? Anxiety or restlessness ? Use of accessory muscles ? Retractions (grunting in newborns) ? Unable to speak in complete sentences Supplemental O2 Clarify which of the following accurately represents the patient's respiratory status: * Acute respiratory failure * Other (please specify) * Unable to determine Please include type if known: * Hypoxic * Hypercapnic * Hypoxic and hypercapnic * Unable to determine Use of terms such as suspected, likely, concern for, or probable (associated with a specific diagnosis that is being evaluated, monitored, or treated as if it exists) are acceptable and can be coded in the inpatient setting, when documented at the time of discharge. Thank you, Linda Felix MS, RN, CCRN Extension: [phone] Please use your independent medical judgment in providing your response. THIS QUERY IS PART OF THE PERMANENT MEDICAL RECORD
--- NOTE | 2022-06-02 12:50 | MHC.CM.PN ---
Addendum entered by Vale Mahoney 06/02/22 14:21: Call placed to pt's son to discuss discharge planning and HCP copy awaiting return phone call. Original Note: Per MD patient ready for d/c. Awaiting STR bed offer.
--- NOTE | 2022-06-02 14:29 | MHC.CLN ---
F/U DIET=REGULAR. SUPPLEMENT ENSURE BID PROVIDES ADDITIONAL 700 KCALS, 40 G PROTEIN. POOR INTAKE AT MEALS X 2 DAYS, 0-25%. CONTINUE CURRENT DIET AND SUPPLEMENT. ENCOURAGE INTAKE OF MEALS, SNACKS, SUPPLEMENTS ABLE.
[2022-06-02] MEDS: Acetaminophen 325 MG TABLET 650 MG PO (17:56)
[2022-06-02] MEDS: Atorvastatin Calcium 40 MG TABLET PO (21:38)
[2022-06-03 02:57] VITALS: BP 132/61; PULSE 87; RESP 16; TEMP 37; O2SAT 94
[2022-06-03 06:49] VITALS: BP 149/66; PULSE 89; RESP 18; TEMP 36.2; O2SAT 93
[2022-06-03 09:02] LABS: Potassium 3.4 mmol/L (3.3-5.1)
[2022-06-03] MEDS: 0.9 % Sodium Chloride Flush 3 ML SYRINGE IVFLUSH ×3 (09:24→20:59)
[2022-06-03] MEDS: Cholecalciferol (Vitamin D3) 25 MCG TABLET 50 MCG PO (09:24)
[2022-06-03] MEDS: Potassium Chloride ER 20 MEQ TAB.ER.PRT PO (09:24)
[2022-06-03] MEDS: amLODIPine Besylate 5 MG TABLET PO (09:24)
[2022-06-03 10:52] VITALS: BP 127/60; PULSE 89; RESP 18; TEMP 36.1; O2SAT 94
--- NOTE | 2022-06-03 13:58 | MHC.CM.PN ---
[facility] IS OFFERING A BED FOR TOMORROW (06/04/22) PATIENT WILL DC ON MED A AND IF NEEDED, TRANSITION TO LTC OR HOSPICE AT FACILITY. FACILITY IS PATIENT'S ONLY CHOICE, SHE DOES PREFER TO RETURN HOME. PATIENT IS AWARE OF CANCER DX. SHE DOES NOT WANT HOSPICE CARE AT THIS TIME AND STATES I AM NOT SUFFERING . SHE ASKS IF SHE CAN STAY HERE 'AT LEAST 2 MORE WEEKS BUT IT WAS EXPLAINED THAT THERE IS NO MEDICAL REASON TO KEEP PATIENT HERE PATIENT ASKS FOR TIME TO PRAY ABOUT THIS MATTER. CASE MANAGEMENT TO RETURN WHEN SON ARRIVES TO DISCUSS PLAN. WILL NEED HCP FACILITY ALSO ASKING FOR [facility]. BASED ON ONCOLOGY REPORT, PATIENT DID STATE SHE WANTED TO BE DNR; HOWEVER, SON TALKED HER OUT OF IT,.
[2022-06-03 14:53] VITALS: BP 125/64; PULSE 99; RESP 18; TEMP 36.8; O2SAT 92
--- NOTE | 2022-06-03 15:11 | P.PNIM_ITS ---
Subjective Subjective Date of Service: 06/03/22 Interval History: Seen in f/u for gross hematuria Review of Systems No more hematuria, Bx has confirmed bladder cancer, patient has been amotivated to participating in anything, eating little better this mornin. Physical Exam Vital Signs: Vital Signs: Last Vital Signs Temp 98.2 F 06/03/22 14:53 Pulse 99 06/03/22 14:53 Resp 18 06/03/22 14:53 BP 125/64 06/03/22 14:53 Pulse Ox 92 06/03/22 14:53 O2 Del Method 06/03/22 14:53 O2 Flow Rate 2 06/03/22 02:57 BMI result Body Mass Index 18.5 General: AO X 2, no acute distress Resp:? CTA bilateral CVS: S1,S2,RRR GI: +BS, NT, no distention Skin: No rash Neuro:? motor grossly intact Psych: appropriate affect Objective Data Active Medications Acetaminophen (Acetaminophen 325 Mg Tablet) 650 mg PO Q6H PRN PRN Reason: Pain, Mild (Pain Scale 1-3) Last Admin: 06/02/22 17:56 Dose: 650 mg Documented By: ALEXANDRA Amlodipine Besylate (Amlodipine Besylate 5 Mg Tablet) 5 mg PO DAILY [facility]; Protocol Last Admin: 06/03/22 09:24 Dose: 5 mg Documented By: ALEXANDRA Atorvastatin Calcium (Atorvastatin Calcium 40 Mg Tablet) 40 mg PO BEDTIME [facility] Last Admin: 06/02/22 21:38 Dose: 40 mg Documented By: TONE Cefazolin Sodium 1 gm/ Sodium (Chloride) 50 mls @ 100 mls/hr IV Q8H [facility] Last Infusion: 06/03/22 10:08 Dose: 0 mls/hr Documented By: ALEXANDRA Lisinopril (Lisinopril 10 Mg Tablet) 10 mg PO BID [facility]; Protocol Last Admin: 06/02/22 21:38 Dose: 10 mg Documented By: TONE Ondansetron HCl (Ondansetron Hcl 4 Mg/2 Ml Vial) 4 mg IVPUSH Q8H PRN PRN Reason: Nausea and Vomiting Last Admin: 05/25/22 20:44 Dose: 4 mg Documented By: KENNA Pharmacy Consult (Consult Rx Perform Med Rec) 1 each MISCELLANE ONCE PRN PRN Reason: Consult order Sodium Chloride (0.9 % Sodium Chloride Flush 3 Ml Syringe) 3 ml IVFLUSH QSHIFT [facility] Last Admin: 06/03/22 09:24 Dose: 3 ml Documented By: ALEXANDRA Vitamin D (Cholecalciferol (Vitamin D3) 25 Mcg Tablet) 50 mcg PO DAILY [facility] Last Admin: 06/03/22 09:24 Dose: 50 mcg Documented By: ALEXANDRA Labs CBC & Chem 7: 06/02/22 11:06 06/03/22 08:32 Assessment and Plan (1) Acute anemia: Status: Acute (2) Bladder mass: Status: Acute (3) Zaid hematuria: Status: Acute Plan 87-year-old female who presents to the hospital with hematuria found to have a bladder/uterine mass # Initially thought to have vaginal bleeding but It turned out to be hematuria from bladder mass -s/p Cystoscopy 05/26 with Bx, result confirmed bladder cancer, oncology to [facility] treatment option with family Final Bx ( Urothelial carcinoma). -Removed henry on 05/31 but then subsequent urinary retention and henry back in 06/01 -Follow-up with Urology as an outpatient and 7-10 days -on going discussion with sister and son Teo urology d/w family , oncology eval pending-for further discussion for management. # acute blood loss anemia - secondary to hematuria/bladder mass - plan for cystoscopy in a.m. - follow H&H - transfusion threshold hemoglobin 7, presently 9, check today # of note patient was evaluated by VEHICLE INSPECTOR (Dr. Lin) who believes issue is urogenital and not vaginal, she recommendeed? transvaginal ultrasound? and patient did not tolerate this, and only had pelvic ultrasound, he also recommended MRI to assist in diagnosis and this was not done in light of Bx don e? and now confirmed diagnosis, if oncology thinks it needs to be done will do it # history of CVA - hold Plavix/aspirin #HTN--restarted on home Lisinopril 10 bid, add Norvasc #moderate protein calory malnutrition--encourage oral food, ensure DVT prophylaxis: SCDs Need for inaptient: hospitalization for hematuria, bladder cancer and now needs palcement Quality Stroke Does the patient have a stroke diagnosis?: No VTE Prior VTE?: No VTE Risk Level:: Medical - moderate - high VTE Device Contraindication: N/A - Device Ordered VTE Drug Contraindication: Treatment Not Indicated
[2022-06-03] MEDS: Acetaminophen 325 MG TABLET 650 MG PO (17:29)
[2022-06-03 18:48] VITALS: BP 128/60; PULSE 85; RESP 18; TEMP 36.8; O2SAT 90
[2022-06-03] MEDS: Atorvastatin Calcium 40 MG TABLET PO (20:56)
[2022-06-03 23:40] VITALS: BP 155/68; PULSE 83; RESP 18; TEMP 36.6; O2SAT 92
[2022-06-04 03:45] VITALS: BP 142/70; PULSE 84; RESP 18; TEMP 36.4; O2SAT 93
[2022-06-04 07:48] VITALS: BP 162/77; PULSE 86; RESP 18; TEMP 36.6; O2SAT 91
[2022-06-04] MEDS: Cholecalciferol (Vitamin D3) 25 MCG TABLET 50 MCG PO (08:29)
[2022-06-04] MEDS: 0.9 % Sodium Chloride Flush 3 ML SYRINGE IVFLUSH ×3 (08:30→19:43)
[2022-06-04] MEDS: amLODIPine Besylate 5 MG TABLET PO (08:30)
[2022-06-04 11:12] VITALS: BP 124/63; PULSE 97; RESP 18; TEMP 37.2; O2SAT 91
--- NOTE | 2022-06-04 13:31 | MHC.CLN ---
F/U DIET=REGULAR. SUPPLEMENT INCREASED TO ENSURE TID. PROVIDES ADDITIONAL 700 KCALS, 40 G PROTEIN. VARIABLE INTAKE AT MEALS. CONTINUE CURRENT DIET AND SUPPLEMENT. ENCOURAGE INTAKE OF MEALS, SNACKS, SUPPLEMENTS ABLE.
[2022-06-04 15:05] VITALS: BP 131/68; PULSE 89; RESP 18; TEMP 36.8; O2SAT 98
--- NOTE | 2022-06-04 16:28 | MHC.CM.PN ---
[facility] OFFERING A BED. HCP AND [facility] UPLOADED INTO [facility]. PATIENT DOES NOT WANT ANY TREATMENT FOR CANER AND SHE WISHES TO BE A DNR/DNI SHE IS ALERT, ORIENTED, AND CAPABLE OF MAKING HER OWN DECISIONS HOSPITALIST PREFERS OT [facility] PATIENT ONE MORE NIGHT FOR SON TO SPEAK WITH ONCOLOGY. MULTIPLE ATTEMPTS TO REACH SON HAVE PROVEN FUTILE. SON DID ARRIVE TODAY. T/W ASKED HIM TO STAY SO THAT HE COULD SPEAK WITH ONCOLOGY. SON (REBECCA) STATES HAVE HER CALL ME . SISTER CRAIG ALSO AWARE THAT PATIENT WILL BE HERE TONIGHT AND DC TO [facility] TOMORROW
[2022-06-04 20:00] VITALS: BP 140/71; PULSE 91; RESP 18; TEMP 36.8; O2SAT 91
[2022-06-04 20:13] VITALS: BP 140/71; PULSE 92; RESP 18; TEMP 36.6; O2SAT 91
[2022-06-04] MEDS: Atorvastatin Calcium 40 MG TABLET PO (20:20)
[2022-06-05] VITALS: BP 139/66; PULSE 86; RESP 18; TEMP 36.4; O2SAT 92
[2022-06-05 04:00] VITALS: BP 163/77; PULSE 91; RESP 18; TEMP 36.5; O2SAT 93
[2022-06-05 08:00] VITALS: BP 162/78; PULSE 90; RESP 18; TEMP 36.7; O2SAT 96
--- NOTE | 2022-06-05 08:59 | MHC.CM.PN ---
PER CM NOTES, PLAN IS FOR PT [facility] TODAY A MESSAGE WAS LEFT WITH [facility] TO CONFIRM BED AVAILABILITY
[2022-06-05] MEDS: Cholecalciferol (Vitamin D3) 25 MCG TABLET 50 MCG PO (09:25)
[2022-06-05] MEDS: amLODIPine Besylate 5 MG TABLET PO (09:26)
[2022-06-05] MEDS: 0.9 % Sodium Chloride Flush 3 ML SYRINGE IVFLUSH (09:30)
--- NOTE | 2022-06-05 11:21 | P.DS_ITS ---
DS: Providers Provider Date of Service: 06/05/22 Date of admission: 05/25/22 21:30 Primary care physician: Maikol Ortiz MD Consults: 05/25/22 21:31 Consult to Urology Routine Consulting Provider: Breezy Byrnes Reason for consultation: Hematuria Has provider been notified: Yes 05/28/22 13:09 Consult to Hematology / Oncology Routine Consulting Provider: Torie Mcgraw Reason for consultation: Bladder mass likely cancer Has provider been notified: No DS: Diagnosis Discharge Diagnosis (1) Acute anemia: Status: Acute (2) Bladder mass: Status: Acute (3) Zaid hematuria: Status: Acute DS: Summary Hospital Course Hospital Course: 87-year-old female past medical history of CVA with right-sided hemiparesis, history of Raynaud's disease, hyperlipidemia, vitamin-D deficiency, HTN presents the hospital with complaints of hematuria//bleeding from the vagina.? Patient was initially seen by my colleague in the ED but there was a confusion about her admission as patient initially did not want cystoscopy or any further evaluation of her hematuria, case was discussed with Urology, patient also had a discussion with Urology along with her son and her sister at bedside, at this time patient is agreeable for cystoscopy and further admission for evaluation and management. Patient herself is a post speaking but she understands Amharic in responding wishes well.? She came into the ED with complaints of bleeding from the vagina/urine with no previous similar bleeding.? She reports no vaginal spotting, and no hematuria previously.? She reports lightheadedness, increased weakness, and palpitations.? Patient does endorse weight loss, but not sure how much. An?Abdominal pelvic CT showing large amount on hemorrhage distending to the urinary bladder with a question of a bladder lesion/mass.? Patient was evaluated initially by Ob Gyne as this was a concern of vaginal bleeding, but after obt aining a pelvis ultrasound which also showed a large heterogeneous mass in the anterior pelvis measuring up to 9.8 cm of uncertain origin it was decided that is most likely originating from the bladder or protruding from the uterus, urology was consulted.? Urology wanted to have patient undergo cystoscopy but patient was not short and she was opposed to initially.? Plan was to start CBI, stabilized patient, with plan for cystoscopy in a.m.. Patient did receive 1 unit of PRBC after her hemoglobin dropped from 9.4-8.8, with appropriate respons I had an extensive discussion with son, and patient at bedside regarding her cholecystitis, initially patient did not want to be resuscitated, she did not want a cystoscopy, as well as no procedural intervention done, but her son talked her out of it, her son is her healthcare proxy, he reports that he wants his mother to be full code, and to undergo cystoscopy. Hospital course : Patient was initially admitted because of bladder/uterine mass-initially also had bleeding which done out to be hematuria-patient had seen urologist and cystoscopy with biopsy done showed Urothelial carcinoma-hematuria seems to be improved, discussed with Urology advised to hold aspirin/Plavix for a week and start after as per patient wishes ,poor candiadte for surgery -patient also does not want it. Acute blood loss anemia secondary to hematuria/bladder mass: Received blood transfusions during this admission-H&H is maintained around 05/13. Hypertension: Slightly suboptimal, continue lisinopril and added Norvasc. Poor oral intake: Patient wants to continue on only oral, needs lot of encouragement for oral intake. refuses any alternative means of nutrition so far even if need. eating little better now. Patient currently decided for defer interventions for bladder cancer. Also decided to be DNR DNI. Above is discussed with patient's son by oncology and myself in detail length and he is aware about it. He also understand that if patient condition does not improve much she might benefit from further discussion outpatient with oncology , may consider hospice. Above management discussed with the patient in detail length patient and her son-both understand and in agreement with the above plan, time spent 50 minutes and 50% time spent on counseling. Significant findings: As above. Procedures performed: None. Treatment and response: As above. Complications: None. Time Spent with Patient Time attestation: Total time spent providing and/or coordinating discharge services: Discharge coordination time: Greater than 30 minutes Quality: Safe Use of Opioids Does Pt have an Active Cancer Diagnosis on the Problem List?: No Quality: Stroke Does the patient have a stroke diagnosis?: No Physical Exam Vital Signs: Vital Signs: Last Vital Signs Temp 98.0 F 06/05/22 08:00 Pulse 90 06/05/22 08:00 Resp 18 06/05/22 08:00 BP 162/78 H 06/05/22 08:00 Pulse Ox 96 06/05/22 08:00 O2 Del Method 06/05/22 08:00 O2 Flow Rate 2 06/03/22 02:57 BMI result Body Mass Index 18.5 General: AO X 3, no acute distress Resp:? CTA bilateral CVS: S1,S2,RRR GI: +BS, NT, no distention Skin: No rash Neuro:? motor grossly intact Psych: appropriate affect DS: Data Data Completed and Pending Completed studies during hospitalization [Text1]: Pending at discharge 05/26/22 14:25 Surgical [PTH] Routine Imaging CT scan - abdomen: Radiologist's impression: ITS Impressions Abdomen/Pelvis CT 05/25/22 15:07 IMPRESSION: 1. Large amount of hemorrhage distending the urinary bladder. There is a small focus of enhancement along the bladder wall at the anterior dome to the left of midline, which does not appreciably change in morphology and may represent a small bladder wall lesion as opposed to a focus of active hemorrhage. 2. Additional nonspecific prominent enhancement along the course of the urethra. 3. No contrast extravasation in the bowel identified to localize a source of GI bleeding via CT. 4. Grossly unremarkable appearance of the gynecologic structures-limited assessment. Pelvis Ultrasound 05/25/22 15:24 IMPRESSION: Large heterogeneous mass in the anterior pelvis measure up to 9.8 cm, uncertain origin, might have originated from the bladder or protruding from the uterus. Further investigation with more advanced imaging contrast-enhanced cross-sectional imaging preferably MRI would be advised. Ovaries not visualized might have been obscured by bowel gas or atrophic. Discharge Plan Discharge Anticipated Discharge Date/Time: 06/05/22 11:08 Patient Disposition: Xfer SNF Discharge Diagnosis: bladder cancer ,anemia, poor oral take Referrals: [facility] [Outside] - 1 Week Maikol Ortiz MD [Primary Care Provider] - 1 Week Discharge Medications: New polyvinyl alcohol [Artificial Tears (polyvin alc)] 1.4 % Drops 2 drp ophthalmic (eye) Q4H PRN (Reason: Dry Eyes) Qty: 15 0RF Continued cholecalciferol (vitamin D3) 50 mcg (2,000 unit) tablet 50 mcg PO DAILY 90 Days Qty: 90 12RF atorvastatin 40 mg tablet 40 mg PO BEDTIME Qty: 30 5RF lisinopril 10 mg tablet 1 tab PO BID Held aspirin 81 mg tablet,delayed release (DR/EC) 81 mg PO DAILY Qty: 30 5RF Hold Instructions: Resume on 06/11/22. clopidogrel 75 mg tablet 75 mg PO DAILY Qty: 30 5RF Hold Instructions: Resume on 06/11/22. Discharge Orders: Discharge Order (Routine); Ordered 06/05/22 Ordered By: Srinivas Valentin Diet: Advance to usual diet Activity on Discharge: As tolerated Stand Alone Forms: Patient Portal Discharge page Care Plan Goals: Patient was initially admitted because of bladder/uterine mass-initially also had bleeding which done out to be hematuria-patient had seen urologist and cystoscopy with biopsy done showed Urothelial carcinoma-hematuria seems to be improved, discussed with Urology recommended to hold aspirin/Plavix for a week . Acute blood loss anemia secondary to hematuria/bladder mass: Received blood transfusions during this admission-H&H is maintained around 05/13. Hypertension: Slightly suboptimal, continue lisinopril and added Norvasc. Poor oral intake: Patient wants to continue on only oral, needs lot of encouragement for oral intake. refuses any alternative means of nutrition so far even if need. eating little better now. Patient currently decided for defer interventions for bladder cancer. Also decided to be DNR DNI. Above is discussed with patient's son in detail length and he is aware about it. He also understand that if patient condition does not improve much she might benefit from further discussion outpatient with oncology , may consider hospice. Health Concerns: as above. Plan of Treatment: as above. Assessment: as above.
[2022-06-05 11:54] VITALS: BP 135/65; PULSE 88; RESP 18; TEMP 36.3; O2SAT 93
--- NOTE | 2022-06-05 12:52 | MHC.CM.PN ---
[facility] TO ACCEPT TODAY FOR 4 PM. [facility] TO PROVIDE TRANSPORT. SON AND SISTER (IN ROOM) AWARE OF PLAN AND IN AGREEMENT. UNIT AND RN AWARE. IMM 06/04 IN CHART
[2022-06-05 15:15] LABS: COVID-19 Test Negative (Negative)
--- NOTE | 2022-06-11 09:08 | MHC.CDI.RETR ---
Documented by User: Linda Felix RN 06/11/22 09:12 Retrospective Query CDI Retrospective Query Documentation Clarification: PHYSICIAN'S DOCUMENTATION REQUEST Date of Query: 06/11/22907 Patient Name: Rashida Olvera Admit Date: 05/25/22 Dear Doctor, A review of the medical record indicates additional documentation may be needed. Please review below and update the documentation accordingly. Clinical Indicators: Is there a diagnosis that correlates with the findings below: Risk Factors/Clinical Indicators/Treatments ? ? ? POA/RESOLVED/TREAT/RULE OUT -Per provider progress note on 06/01: she refusing to work with PT and eating little -RR: 05/31: 30 06/01: 24 -HR: 05/30: 105 05/31: 122 -Patient requiring supplemental O2 to keep [id number] 90% ? Recognized standard criteria for respiratory failure includes: ? (Source:? [facility] Hospitalist Jun 2013) Symptoms: ? Tachypnea, SOB, dyspnea ? Pallor or cyanosis ? Anxiety or restlessness ? Use of accessory muscles ? Retractions (grunting in newborns) ? Unable to speak in complete sentences Supplemental O2 Clarify which of the following accurately represents the patient's respiratory status: ? Acute respiratory failure Other?(please specify) Unable to determine? Please include type if known: Hypoxic Hypercapnic Hypoxic and hypercapnic Unable to determine? Use of terms such as suspected, likely, concern for, or probable (associated with a specific diagnosis that is being evaluated, monitored, or treated as if it exists) are acceptable and can be coded in the inpatient setting, when documented at the time of discharge. Thank you, Linda Felix, MS, RN, CCRN Extension: [phone] Please use your independent medical judgment in providing your response. THIS QUERY IS PART OF THE PERMANENT MEDICAL RECORD Documented by User: Srinivas Valentin MD 06/17/22 07:33 Retrospective Query Provider Response: Other (less likely hypoxia /acute hypoxemic resp failure.)
== END 2022-06-05 16:47 | disposition skilled nursing facility (03) | DRG 668 ==
LOC: HO.ED 17:54 → HO.EDOVER 21:59 → HO.S3 05-26 15:09
PROVIDERS: Internal Medicine; Nurse Practitioner Acute Care; Physician Assistant; Urology; Admitting Provider Internal Medicine; Emergency Provider Emergency Medicine; PCP Internal Medicine; Visit Provider Internal Medicine
PROC: 0T5B8ZZ Destruction of Bladder, Via Natural or Artificial Opening Endoscopic (ICD-10-PCS; principal; 2022-05-26 12:40)
DX: C67.9 Malignant neoplasm of bladder, unspecified (principal); J96.01 Acute respiratory failure with hypoxia; D62 Acute posthemorrhagic anemia; I69.351 Hemiplegia and hemiparesis following cerebral infarction affecting right dominant side; E44.0 Moderate protein-calorie malnutrition; Z68.1 Body mass index [BMI] 19.9 or less, adult; E55.9 Vitamin D deficiency, unspecified; I73.00 Raynaud's syndrome without gangrene; Z66 Do not resuscitate; E78.5 Hyperlipidemia, unspecified; R31.0 Gross hematuria; Z20.822 Contact with and (suspected) exposure to COVID-19; Z79.02 Long term (current) use of antithrombotics/antiplatelets; Z79.82 Long term (current) use of aspirin; Z79.899 Other long term (current) drug therapy
CPT/HCPCS: 36415; 74178; 76856; 80048; 80053; 82272; 83735; 84132; 85014; 85018; 85025; 85027; 85610; 86850; 86900; 86901; 86923; 87635; 88304; 88307; 88341; 88342; 88360; 93005; 97162; 99285; C1758; J0690; J0696; J2270; J2370; J2405; J3010; P9016; Q9967

== ENCOUNTER 2022-06-08 12:35 | Emergency (ER) | payer MEDICARE, MEDICAID, SELFPAY ==
--- NOTE | ~2022-06-08 | CT_ITS ---
EXAMINATION: CT ABDOMEN AND PELVIS WITHOUT CONTRAST CLINICAL INFORMATION: Lower abdominal pain with decreased urinary output. Cueva catheter in place. COMPARISON: May 25, 2022 TECHNIQUE: Multidetector volumetric imaging was performed from the superior aspect of the liver through the pubic symphysis. Sagittal and coronal reformatted images were obtained on the technologist's workstation. This CT examination was performed using dose optimization techniques as appropriate, variously including the following: *Automated exposure control *Adjustment of mA and/or kV according to patient size (this includes techniques or standardized protocols for targeted exams where dose is matched to indication/reason for exam; i.e. extremities or head) *Use of iterative reconstruction technique DLP: 357 mGy-cm FINDINGS: Differentiation is somewhat difficult due to development of hazy density throughout the mesentery. LUNG BASES: Since previous study patient has developed bilateral small to moderate size pleural effusions with basilar atelectasis. No pericardial effusion. LIVER, GALLBLADDER, AND BILIARY TREE: The liver is normal in size, shape, and attenuation. No focal hepatic lesion or biliary ductal dilatation is present. The gallbladder is unremarkable with no evidence of radiopaque gallstones, gallbladder wall thickening, or obvious pericholecystic inflammatory changes to extent seen.. PANCREAS: Unremarkable to extent seen. SPLEEN: Unremarkable. ADRENAL GLANDS: Unremarkable to extent seen. KIDNEYS AND URETERS: The kidneys are normal in size, shape, and attenuation. No hydronephrosis, hydroureter, or calculi seen. No perinephric stranding. BLADDER: Cueva catheter in place with balloon inflated. Decompressed other than for iatrogenic gas nondependently within the urinary bladder. GASTROINTESTINAL TRACT: No dilated loops of large or small bowel. No free abdominal air. There is trace free fluid within the pelvis. There is diffuse stranding within mesenteric fat. Appendix is not visualized. It is not possible to evaluate colon for possible pericolonic inflammatory change due to the edematous change within the mesenteric fat. No abscess collection is appreciated. ABDOMINAL WALL: No significant hernia is appreciated. Anasarca is present. LYMPH NODES: No lymphadenopathy identified. VASCULAR: There is mild aortoiliac calcified plaque present. No abdominal aortic aneurysm. PELVIC VISCERA: No suspicious mass appreciated. OSSEOUS STRUCTURES: No suspicious destructive lesions identified. Multiple old right-sided rib fractures. There is scoliosis of the lumbosacral spine. There is a superior endplate compression fracture of L1. There is multilevel degenerative disc disease present most significant L4-S1. There is a grade [address]ylolisthesis L4-L5. CT/CT abdomen pelvis wo IV con IMPRESSION: No evidence of obstructive uropathy. Cueva catheter within urinary bladder not containing fluid. Development of bilateral [id number] pleural effusions. Anasarca with hazy density throughout the mesentery. Fleischner guidelines were followed.
--- NOTE | ~2022-06-08 | XR_ITS ---
EXAMINATION: XR CHEST CLINICAL INFORMATION: COVID positive. COMPARISON: None TECHNIQUE: Frontal view of the chest was obtained. FINDINGS: No significant abnormality is noted involving the heart, lungs, mediastinum, bony thorax or soft tissues. XR/XR chest 1V IMPRESSION: No acute cardiopulmonary process.
--- NOTE | 2022-06-08 12:45 | ED_ITS ---
HPI - General Adult General Chief complaint: Urogenital-Female Stated complaint: DIFF URINATION W/PAIN Time Seen by Provider: 06/08/22 12:42 Source: patient, family and EMS Mode of arrival: EMS History of Present Illness HPI narrative: 87-year-old female with a past medical history of CVA with right-sided hemiparesis, Raynaud's disease, HLD, vitamin-D deficiency, HTN, recent discharge from our facility on 06/05/2022 s/p diagnosis of bladder/uterine mass s/p henry placement, acute blood loss anemia, presenting to the ED from [place] [facility] for lower/suprapubic abdominal pain and decreased urine output, 300cc in 48 hours. Patient reports lower abdominal pain. Denies fever, chills, nausea, vomiting, dysuria, hematuria, back pain, trauma to Henry catheter Onset (ago): day(s) Related Data Home Medications Medication Instructions Recorded Confirmed lisinopril 10 mg tablet 1 tab PO BID 05/26/22 06/08/22 acetaminophen 325 mg tablet 650 mg PO TID 06/08/22 06/08/22 amlodipine 2.5 mg tablet 2.5 mg PO DAILY 06/08/22 06/08/22 Previous Rx's Medication Instructions Recorded cholecalciferol (vitamin D3) 50 50 mcg PO DAILY 90 days #90 tabs 12/25/21 mcg (2,000 unit) tablet aspirin 81 mg tablet,delayed 81 mg PO DAILY #30 tabs 02/24/22 release atorvastatin 40 mg tablet 40 mg PO BEDTIME #30 tabs 02/24/22 clopidogrel 75 mg tablet 75 mg PO DAILY #30 tabs 02/24/22 polyvinyl alcohol 1.4 % eye drops 2 drp ophthalmic (eye) Q4H PRN Dry 06/05/22 (Artificial Tears (polyvinyl Eyes #15 mL alcohol)) Allergies Allergy/AdvReac Type Severity Reaction Status Date / Time No Known Allergies Allergy Verified 01/14/22 11:34 Review of Systems Review of Systems: Constitutional: No Fever, No Chills, No Fatigue, No Malaise ENT/Mouth: No Hearing loss, No Ear Pain, No Nasal Congestion, No sore throat, No Rhinorrhea, No Swallowing Difficulty Eyes: No Eye Pain, No Swelling, No Redness, No Vision Changes Cardiovascular: No Chest Pain, No SOB, No Edema, No Palpitations Respiratory: No Cough, No Sputum, No Dyspnea Gastrointestinal: No Nausea, No Vomiting, No Diarrhea, No Constipation, + Abdominal pain Genitourinary: No irregular bleeding, No Dysuria, No Urinary Frequency, No Hematuria, No Urinary Incontinence/retention, No Urgency, No Flank Pain, + Urinary Flow Changes, No Hesitancy Musculoskeletal: No joint pain, No Myalgias, No Joint Swelling Skin: No Skin Lesions, No rash Neuro: No Weakness, No Loss of Consciousness, No Dizziness, No Headache Yes all other systems are reviewed and are negative Constitutional: Constitutional: Reports as per [facility] Past Medical History Attestation statement: The following information was validated with the patient. Medical History Benign essential hypertension Lumbar degenerative disc disease Pure hypercholesterolemia Vitamin D deficiency Surgical History History of eye surgery Family History Family History Other Family history non-contributory Social History Social History Household Members: None Housing: House Do you presently have visiting nurse or other home services: No Alcohol intake: never Patient Tobacco Use Status: Never used Tobacco e-Cigarette/Vaping Use: Never Used Second Hand Smoke Exposure: Yes Use of substances other than those prescribed or required for medical reasons: No Advance Directives: Yes Advance Directives on File: Yes Advance Directives Date on File: 06/06/22 service: No Current occupational status: retired Cognitive needs: No Hearing needs: No Vision needs: No Physical Exam ED Vital Signs: Vital Signs - 24 hr 06/08/22 12:59 06/08/22 14:20 06/08/22 17:21 Temperature 98.4 F 98.3 F 98.2 F Pulse Rate 94 91 90 Respiratory Rate 16 18 15 Blood Pressure 123/68 157/81 H 146/86 H Pulse Oximetry 96 96 96 Oxygen Delivery Method Room Air Room Air Room Air 06/08/22 19:39 06/08/22 20:02 06/09/22 05:10 Temperature 98.4 F 98.4 F Pulse Rate 86 99 87 Respiratory Rate 17 14 14 Blood Pressure 143/80 H 144/78 H Pulse Oximetry 99 97 97 Oxygen Delivery Method Room Air Room Air Room Air 06/09/22 07:15 06/09/22 08:52 06/09/22 11:40 Temperature 98.4 F 98.4 F 98.2 F Pulse Rate 84 96 84 Respiratory Rate 16 16 16 Blood Pressure 153/73 H 148/82 H 134/67 Pulse Oximetry 96 94 93 Oxygen Delivery Method Room Air Room Air Room Air BMI result Body Mass Index 21.4 Const General: cooperative, healthy appearing and no acute distress Orientation/consciousness: patient oriented x3 Limitations: no limitations HENMT Head: Yes normal to inspection and Yes atraumatic Ears: hearing grossly normal bilaterally General nose exam: Normal external nose present Face and sinus: Yes normal facial exam Eyes General: appearance normal, both eyes and all related structures EOM: EOMs intact bilaterally Neck Neck: Yes normal visual inspection and Yes no meningeal signs Resp Effort & Inspection: normal respiratory effort and no respiratory distress Auscultation: clear to auscultation bilaterally Cardio Rate: regular rate Heart sounds: S1 normal heart sound present and S2 normal heart sound present GI Inspection: Yes normal to inspection and No distended Palpation (GI): Soft to palpation, Tenderness to palpation present (GI) suprapubicly, no guarding and not rigid Other: Henry catheter in place, appears a little far out General: Yes no CVA tenderness Back/Spine/Pelvis Back: no CVA tenderness Skin Rashes: no rashes Wounds: no wounds Neuro General: patient oriented x3, tone normal and no meningeal signs Gait exam (Neuro): Normal gait present Extrem General: Yes normal to inspection Course Course Course Narrative: -1438--no leukocytosis. H&H at patient's baseline. Labs otherwise reassuring. Albumin low at 2.6 -patient is COVID-19 positive, will obtain CXR CT abdomen pelvis wo IV con IMPRESSION: No evidence of obstructive uropathy. Henry catheter within urinary bladder not containing fluid. ? Development of bilateral [id number] pleural effusions. ? Anasarca with hazy density throughout the mesentery. ? Fleischner guidelines were followed. >> No hypoxia. No evidence of peripheral/central edema on exam. Anasarca suspected from from mass/malignancy > patient has follow-up with Oncology on Thursday. DNR/DNI, opted out of treatment per last admission notes XR chest 1V IMPRESSION: No acute cardiopulmonary process. -1800--UA infected > given dose of IV Rocephin Plan for PT/case management as patient refuses to return to [facility]. Physician observation initiated 18:20 2099--ED care transferred to ZOILA Sotelo pending to PT/CM ? 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 On exam vital signs stable, NAD, nontoxic appearing, abdomen soft nondistended with mild suprapubic tenderness, Henry catheter in place appears mildly pulled out, will try to push catheter in more and flush, bedside ultrasound without distended bladder. Concern for UTI vs obstruction. Rule out pyelo/stone vs appendicitis/diverticulitis although a lower suspicion Plan: Labs, UA, CT AP, IVF, re-evaluate Medical Records Medical records reviewed: Yes I reviewed the patient's medical records. Lab Data Lab results reviewed: Yes I reviewed the patient's lab results. Result diagrams: 06/08/22 13:34 06/08/22 13:34 Labs: Lab Results 06/08/22 06/08/22 06/08/22 Range/Units 13:34 13:34 13:34 WBC 8.3 (4.8-10.8) X10*3/uL RBC 3.38 L (4.20-5.50) X10*6/uL Hgb 9.4 L (12.0-16.0) g/dl Hct 29.6 L (37.0-47.0) % MCV 87.6 (80.0-98.0) fL MCH 27.8 (27.0-33.0) pg MCHC 31.8 (31.0-35.0) g/dl RDW 14.5 (11.0-16.0) % Plt Count 395 D (160-400) X10*3/uL MPV 8.3 L (9.4-12.3) fL Immature Gran % (Auto) 0.2 (0.0-0.4) % Neut % (Auto) 79.9 H (45-73) % Lymph % (Auto) 9.0 L (20-40) % [place] % (Auto) 9.8 (2-11) % Eos % (Auto) 0.7 (0-4) % Baso % (Auto) 0.4 (0-2) % Lymph # (Auto) 0.8 L (1.2-4.9) X10*3/uL [place] # (Auto) 0.8 (0.1-1.2) X10*3/uL Eos # (Auto) 0.1 (0.0-0.4) X10*3/uL Baso # (Auto) 0.0 (0.0-0.2) X10*3/uL Abs Immat Gran (auto) 0.02 (0.00-0.03) X10*3/uL Absolute Neuts (auto) 6.7 (2.0-8.3) x10*3/uL Absolute Nucleated RBC 0.000 (0.0-0.012) X10*3/uL Nucleated RBC % (auto) 0.0 (0.0-0.2) /100WBC Sodium 141 (135-145) mmol/L Potassium 4.1 D (3.3-5.1) mmol/L Chloride 106 (96-108) mmol/L Carbon Dioxide 26 (22-29) mmol/L Anion Gap 13 (12-20) BUN 17 H (9-16) mg/dL Creatinine 0.50 (0.5-1.4) mg/dL Estim Creat Clear Calc 59.1 Estimated GFR > 60 Random Glucose 113 (60-115) mg/dL Calcium 8.4 (8.4-10.2) mg/dL Magnesium 1.9 (1.6-2.6) mg/dL Total Bilirubin 0.6 (0.0-1.0) mg/dL Direct Bilirubin 0.3 (0.0-0.5) mg/dL AST 25 (5-31) U/L ALT 11 (0-31) U/L Alkaline Phosphatase 110 D (39-117) U/L B-Natriuretic Peptide 53 (<100) pg/mL Total Protein 4.9 L (6.5-8.0) g/dL Albumin 2.6 L D (3.5-5.0) g/dL Lipase 38 (8-78) U/L Urine Color Urine Appearance Urine pH (5.0-9.0) Ur Specific [place] (1.005-1.025) Urine Protein (Neg-Trace) mg/dL Urine Glucose (UA) (Negative) mg/dL Urine Ketones (Negative) mg/dL Urine Blood (Negative) Urine Nitrite (Negative) Ur Leukocyte Esterase (Negative) Urine RBC (0-2) /HPF Urine WBC (0-5) /HPF Ur Squamous Epith Cells (0-2) /HPF Urine Bacteria (None Seen) Hyaline Casts (0-2) /LPF Urine Yeast COVID-19 (ALEYDA) (Negative) COVID-19 Clin Com 06/08/22 06/08/22 Range/Units 13:35 17:18 WBC (4.8-10.8) X10*3/uL RBC (4.20-5.50) X10*6/uL Hgb (12.0-16.0) g/dl Hct (37.0-47.0) % MCV (80.0-98.0) fL MCH (27.0-33.0) pg MCHC (31.0-35.0) g/dl RDW (11.0-16.0) % Plt Count (160-400) X10*3/uL MPV (9.4-12.3) fL Immature Gran % (Auto) (0.0-0.4) % Neut % (Auto) (45-73) % Lymph % (Auto) (20-40) % [place] % (Auto) (2-11) % Eos % (Auto) (0-4) % Baso % (Auto) (0-2) % Lymph # (Auto) (1.2-4.9) X10*3/uL [place] # (Auto) (0.1-1.2) X10*3/uL Eos # (Auto) (0.0-0.4) X10*3/uL Baso # (Auto) (0.0-0.2) X10*3/uL Abs Immat Gran (auto) (0.00-0.03) X10*3/uL Absolute Neuts (auto) (2.0-8.3) x10*3/uL Absolute Nucleated RBC (0.0-0.012) X10*3/uL Nucleated RBC % (auto) (0.0-0.2) /100WBC Sodium (135-145) mmol/L Potassium (3.3-5.1) mmol/L Chloride (96-108) mmol/L Carbon Dioxide (22-29) mmol/L Anion Gap (12-20) BUN (9-16) mg/dL Creatinine (0.5-1.4) mg/dL Estim Creat Clear Calc Estimated GFR Random Glucose (60-115) mg/dL Calcium (8.4-10.2) mg/dL Magnesium (1.6-2.6) mg/dL Total Bilirubin (0.0-1.0) mg/dL Direct Bilirubin (0.0-0.5) mg/dL AST (5-31) U/L ALT (0-31) U/L Alkaline Phosphatase (39-117) U/L B-Natriuretic Peptide (<100) pg/mL Total Protein (6.5-8.0) g/dL Albumin (3.5-5.0) g/dL Lipase (8-78) U/L Urine Color Yellow Urine Appearance Cloudy Urine pH 6.0 (5.0-9.0) Ur Specific [place] 1.020 (1.005-1.025) Urine Protein Trace (Neg-Trace) mg/dL Urine Glucose (UA) Negative (Negative) mg/dL Urine Ketones 15 (Negative) mg/dL Urine Blood Trace H (Negative) Urine Nitrite Negative (Negative) Ur Leukocyte Esterase Moderate (2+) H (Negative) Urine RBC 11-20 H (0-2) /HPF Urine WBC >50 H (0-5) /HPF Ur Squamous Epith Cells 0-2 (0-2) /HPF Urine Bacteria None Seen (None Seen) Hyaline Casts 0-2 (0-2) /LPF Urine Yeast Present COVID-19 (ALEYDA) Positive A (Negative) COVID-19 Clin Com See Note Discharge Plan Discharge Clinical Impression: UTI (urinary tract infection), Anasarca Patient Disposition: Still a Patient Instructions: Urinary Tract Infection in Women (ED), Edema (ED) Prescriptions: No Action cholecalciferol (vitamin D3) 50 mcg (2,000 unit) tablet 50 mcg PO DAILY 90 Days Qty: 90 12RF aspirin 81 mg tablet,delayed release (DR/EC) 81 mg PO DAILY Qty: 30 5RF Hold Instructions: Resume on 06/11/22. clopidogrel 75 mg tablet 75 mg PO DAILY Qty: 30 5RF Hold Instructions: Resume on 06/11/22. atorvastatin 40 mg tablet 40 mg PO BEDTIME Qty: 30 5RF lisinopril 10 mg tablet 1 tab PO BID polyvinyl alcohol [Artificial Tears (polyvin alc)] 1.4 % Drops 2 drp ophthalmic (eye) Q4H PRN (Reason: Dry Eyes) Qty: 15 0RF acetaminophen 325 mg Tablet 650 mg PO TID amlodipine 2.5 mg Tablet 2.5 mg PO DAILY
[2022-06-08 12:58] VITALS: BP 136/78; PULSE 100; O2SAT 93
[2022-06-08 12:59] VITALS: BP 123/68; PULSE 94; RESP 16; TEMP 36.9; O2SAT 96; BMI 21.4
[2022-06-08 13:38] LABS: MANUAL DIFF FLAG NO
[2022-06-08 13:39] LABS: Hemoglobin 9.4 g/dl (12.0-16.0); Red Blood Count 3.38 X10*6/uL (4.20-5.50); White Blood Count 8.3 X10*3/uL (4.8-10.8)
[2022-06-08 13:40] LABS: Basophils Percent Auto 0.4 % (0-2); Eosinophils Absolute Auto 0.1 X10*3/uL (0.0-0.4); Eosinophils Percent Auto 0.7 % (0-4); Hematocrit 29.6 % (37.0-47.0); Imm Gran Abs Auto 0.02 X10*3/uL (0.00-0.03); Imm Gran Pct Auto 0.2 % (0.0-0.4); Lymphocytes Absolute Auto 0.8 X10*3/uL (1.2-4.9); Mean Corpuscular HGB Conc 31.8 g/dl (31.0-35.0); Mean Corpuscular Hemoglobin 27.8 pg (27.0-33.0); Mean Corpuscular Volume 87.6 fL (80.0-98.0); Mean Platelet Volume 8.3 fL (9.4-12.3); Monocytes Absolute Auto 0.8 X10*3/uL (0.1-1.2); Monocytes Percent Auto 9.8 % (2-11); Neutrophils Absolute Auto 6.7 x10*3/uL (2.0-8.3); Neutrophils Percent Auto 79.9 % (45-73); Platelet Count 395 X10*3/uL (160-400); Red Cell Distribution Width 14.5 % (11.0-16.0)
[2022-06-08 13:50] LABS: COVID-19 Test Positive (Negative); IDNOW Serial# 16C4AD1C
[2022-06-08 14:01] LABS: Alanine Aminotransferase 11 U/L (0-31); Albumin Level 2.6 g/dL (3.5-5.0); Alkaline Phosphatase 110 U/L (39-117); Anion Gap 13 (12-20); Aspartate Amino Transferase 25 U/L (5-31); Bilirubin Direct 0.3 mg/dL (0.0-0.5); Bilirubin Total 0.6 mg/dL (0.0-1.0); Blood Urea Nitrogen 17 mg/dL (9-16); Calcium 8.4 mg/dL (8.4-10.2); Carbon Dioxide 26 mmol/L (22-29); Chloride 106 mmol/L (96-108); Creatinine Clr Calc Pharmacy 59.1; Estimated Glomerular Filt Rate > 60; Glucose Random 113 mg/dL (60-115); Lipase 38 U/L (8-78); Magnesium 1.9 mg/dL (1.6-2.6); Potassium 4.1 mmol/L (3.3-5.1); Sodium 141 mmol/L (135-145); Total Protein 4.9 g/dL (6.5-8.0)
[2022-06-08 14:20] VITALS: BP 157/81; PULSE 91; RESP 18; TEMP 36.8; O2SAT 96
[2022-06-08] MEDS: 0.9 % Sodium Chloride 1,000 ML 999 ML IV (14:48)
[2022-06-08 15:48] LABS: B Type Natriuretic Peptide 53 pg/mL (<100)
--- NOTE | 2022-06-08 16:26 | PC.NURSE ---
Bladder scanned pt, pt has 0 mL of urine present. ZOILA shultz
[2022-06-08 17:21] VITALS: BP 146/86; PULSE 90; RESP 15; TEMP 36.8; O2SAT 96
[2022-06-08 17:25] LABS: Appearance Urine Cloudy; Color Urine Yellow; Glucose Urine UA Negative (Negative); Leukocyte Esterase Urine Moderate (2+) (Negative); Nitrite Urine Negative (Negative); UMIC TRIGGER UACC YES; Urine Blood Trace (Negative); Urine Ketones 15 mg/dL (Negative); Urine Protein Trace mg/dL (Neg-Trace)
[2022-06-08 17:42] LABS: Bacteria Urine None Seen (None Seen); Hyaline Casts Urine 0-2 /LPF (0-2); Squamous Epithelial Cell Urine 0-2 /HPF (0-2); UACC Culture Trigger YES; WBC Urine >50 /HPF (0-5)
[2022-06-08] MEDS: cefTRIAXone sodium 1 GM in 0.9 % Sodium Chloride 50 ML IV (18:25)
--- NOTE | 2022-06-08 18:38 | PHA.MEDREC ---
Pharmacy Consult ? Medication Reconciliation Pharmacy has completed the medication reconciliation. [facility]
[2022-06-08 19:39] VITALS: PULSE 86; RESP 17; O2SAT 99
[2022-06-08 20:02] VITALS: BP 143/80; PULSE 99; RESP 14; TEMP 36.9; O2SAT 97
[2022-06-08] MEDS: Acetaminophen 325 MG TABLET 650 MG PO (21:27)
[2022-06-08] MEDS: Atorvastatin Calcium 40 MG TABLET PO (21:28)
[2022-06-08] MEDS: lisinopriL 10 MG TABLET PO (21:29)
[2022-06-09 05:10] VITALS: BP 144/78; PULSE 87; RESP 14; TEMP 36.9; O2SAT 97
[2022-06-09 07:15] VITALS: BP 153/73; PULSE 84; RESP 16; TEMP 36.9; O2SAT 96
[2022-06-09] MEDS: Aspirin Enteric Coated 81 MG TABLET.DR PO (08:38)
[2022-06-09] MEDS: Acetaminophen 325 MG TABLET 650 MG PO ×2 (08:38→15:43)
[2022-06-09] MEDS: lisinopriL 10 MG TABLET PO (08:39)
[2022-06-09] MEDS: Clopidogrel Bisulfate 75 MG TABLET PO (08:39)
[2022-06-09] MEDS: amLODIPine Besylate 2.5 MG TABLET PO (08:39)
[2022-06-09] MEDS: Cholecalciferol (Vitamin D3) 25 MCG TABLET 50 MCG PO (08:39)
[2022-06-09 08:52] VITALS: BP 148/82; PULSE 96; RESP 16; TEMP 36.9; O2SAT 94
[2022-06-09 11:40] VITALS: BP 134/67; PULSE 84; RESP 16; TEMP 36.8; O2SAT 93
--- NOTE | 2022-06-09 12:27 | MHC.CM.ED ---
Received case management consult overnight. Patient came to the ER due to difficulty urinating. Patient was discharged from [facility] on 06/05. Patient was Covid negative at discharge. Positive for Covid on 06/08 in the ER. Patient and family does not want patient to return to [place]. T/W met with patient and sister Tracey. Both state there were flies in the patient's room and throughout the entire building. Patient's room had handing fly trap in it. Patient was inc of stool that had been dried on patient's skin for a very long time. T/W spkoe with Sasha [place] liaison about this. Sasha will speak to [facility]'s technology lab teacher. Patient, Tracey and Teo aware patient may be difficult to place due to being positive for Covid. Referral broadcasted throughout [place] to all facilities accepting positive Covid patients. Referrals also sent to the [facility] at Tracey's uest. Continue to monitor for d/c needs.
[2022-06-09 12:52] LABS: Glucose, Whole Blood 98 mg/dL (60-115)
[2022-06-09 12:56] VITALS: BP 152/81; PULSE 87; RESP 14; O2SAT 98
--- NOTE | 2022-06-09 13:39 | MHC.CM.ED ---
[facility] is able to offer a bed. T/w spoke with patient's son/HCP. Teo accepts bed. Patient can leave at 4pm. Loreta NESS booked. Med nec with chart. Patient, son Teo, sister Estefania Webb RN and Tara CUMMINGS aware. Continue to monitor for d/c needs.
--- NOTE | 2022-06-09 15:10 | PC.NURSE ---
output from henry cath was 500ml and clayton color
--- NOTE | 2022-06-09 15:45 | PC.NURSE ---
Pt aox3. Resting in bed. No apparent distress. Waiting for transport to be discharged. Pt aware of plan of care.
== END 2022-06-09 16:56 | disposition home or self-care (01) ==
PROVIDERS: Physician Assistant; Emergency Provider Emergency Medicine; PCP Internal Medicine
DX: N39.0 Urinary tract infection, site not specified (principal); R60.1 Generalized edema; R33.9 Retention of urine, unspecified; R30.0 Dysuria; R10.32 Left lower quadrant pain; R06.02 Shortness of breath; Z20.822 Contact with and (suspected) exposure to COVID-19; Z79.899 Other long term (current) drug therapy
CPT/HCPCS: 51798; 71045; 74176; 80048; 80076; 81001; 82947; 83690; 83735; 83880; 85025; 87086; 87088; 87635; 96374; 99285; J0696

== ENCOUNTER 2022-08-04 13:40 | Outpatient (RCR) | payer MEDICARE, MEDICAID, SELFPAY ==
--- NOTE | 2022-08-04 15:13 | HO.HEMONCTE1 ---
Hem/Onc Clinic Telehealth - Telehealth Location of Provider rendering services: Hem/onc office. Location of Patient: [facility]. Patient Identification confirmed using: Name, : Yes Telehealth Method: Via Telephone. Patient verbally consented to treatment: Yes. Patient verbally consented to billing insurance company: Yes Patient informed of any privacy concerns related to visit: Yes Medical Summary - Medical Summary Date of Service: 08/04/22 Chief complaint: FOLLOW-UP FOR: BLADDER CARCINOMA. Medical Summary: DIAGNOSIS: BLADDER CARCINOMA. Interval History Interval history: Rashida Olvera is a pleasant 87 year old Lady, with whome a telelvisit was held. She actually had a follow-up appt with me today. However, her sister called to report that she was still at rehab, she had not made much progress. She actually had a setback. She had walked in there but now is bedridden, she can not even sit. Patient felt rather weak and did not want to come out in this cold weather. So we decided to have tele visit with her and her sister. She is rather fatigued. She denies fever nor chills. No headache. She does get dizzy at times. No chest pain, she gets short of breath on exertion. Denies abdominal pain nausea or vomiting. She does get suprapubic pain. She has a folley placed. Complains of low back pain. Legs are weak. She cannot sit nor stand. She is rather depressed. No skin rashes or pruritus. PRESENTING HISTORY: She initially presented to the hospital on 05/26, with complaints of hematuria//bleeding from the vagina. Patient initially did not want cystoscopy or any further evaluation of her hematuria. The case was discussed with Urology. She also had a discussion with Urology along with her son and her sister at bedside, Subsequently, she was agreeable for cystoscopy. Patient herself is ecuadorean speaking but she understands Khmer and responds well. No previous similar bleeding. She reports no vaginal spotting, and no hematuria previously. She reports lightheadedness, increased weakness, and palpitations. Patient does endorse weight loss, but not sure how much. An?Abdominal pelvic CT showed: Large amount of hemorrhage distending to the urinary bladder with a question of a bladder lesion/mass. She was evaluated initially by [facility]. as this was a concern of vaginal bleeding, but after obtaining a pelvis ultrasound which also showed a large heterogeneous mass in the anterior pelvis measuring up to 9.8 cm of uncertain origin, it was decided that is most likely originating from the bladder or protruding from the uterus. Urology was consulted. Urology wanted to have patient undergo cystoscopy but patient was opposed to it initially. She was started on CBI, to stabilize. Then plan for cystoscopy next day. She received 1 unit of PRBC after her hemoglobin dropped from 9.4-8.8, with appropriate response. Discussion was also held about her cholecystitis. She initially did not want to be resuscitated, so wanted no procedural intervention done, but her son (health care proxy) talked her out of it. He reported he wanted his mother to be full code. PAST MEDICAL HISTORY: CVA with right-sided hemiparesis, history of Raynaud's disease, hyperlipidemia, vitamin-D deficiency, HTN Lumbar degenerative disc disease Pure hypercholesterolemia Vitamin D deficiency Surgical History: History of eye surgery Family History: Family history non-contributory Social History: Housing: House Alcohol intake: never Patient Tobacco Use Status: Never used Tobacco e-Cigarette/Vaping Use: Never Used Second Hand Smoke Exposure: Yes Use of substances other than those prescribed or required for medical reasons: No Review of Systems - Constitutional Reports no additional constitutional complaints, Reports anorexia, Reports fatigue, Reports lack of energy, Reports malaise, Reports weakness, Reports weight loss - Eyes Reports no additional eye complaints, Denies blurry vision - ENT Reports no additional ear, nose, mouth, and throat complaints - Cardiovascular Reports no additional cardiovascular complaints, Denies chest pain - Respiratory Reports no additional respiratory complaints, Denies chest congestion, Reports dyspnea on exertion - Gastrointestinal Reports no additional gastrointestinal complaints, Denies diarrhea, Reports nausea - Genitourinary Reports no additional female genitourinary complaints, Reports urinary urgency - Musculoskeletal Reports no additional musculoskeletal complaints - Integumentary/Breasts Skin/Breast: Reports no additional skin complaints - Neurologic Reports no additional neurologic complaints - Psychiatric Reports no additional psychiatric complaints - Endocrine Reports no additional endocrine complaints - Hematologic/Lymphatic Reports no additional hematologic/lymphatic complaints - Allergic/Immunologic Reports no additional allergic/immunologic complaints Home Medications and Allergies Home Medications Medication Instructions Recorded Confirmed Type lisinopril 10 mg tablet 1 tab PO BID 05/26/22 06/08/22 History acetaminophen 325 mg tablet 650 mg PO TID 06/08/22 06/08/22 History amlodipine 2.5 mg tablet 2.5 mg PO DAILY 06/08/22 06/08/22 History Allergies Allergy/AdvReac Type Severity Reaction Status Date / Time No Known Allergies Allergy Verified 01/14/22 11:34 Assessment and Plan Patient Active problem list reviewed?: Yes (1) Bladder tumor Status: Acute Assessment and plan: 87 Year old lady who was seen in the hospital back in May with Anemia and Hematuria. She had cystoscopy, and TURP. Final pathology revealed: High-grade, urothelial carcinoma, invasive into muscularis propria. Tumor site: Left posterior, near dome. Grade: High-grade. Muscularis propria: Present. Extent of invasion: Muscularis propria. Lymphovascular invasion: Suspicious. At that time, I had shared the results with her son. Discussed options for treatment including palliative radiation therapy for control of bleeding. Alternatively can give a trial of Pembrolizumab. He felt she was too weak to tolerate any sort of treatment. He had preferred that she go to rehab, get some strength back and then decide next course of action. l electeed to respect their wishes. She had a follow-up appointment, with me today however, her sister called and requested to have the appointment rescheduled. Patient did not feel up to coming in. She feels very tired and fatigued. She is not even able to sit or stand. PLAN: I did explained to her the diagnosis and treatment options. However when the performance status is so poor, I would be worried about her ability to tolerate any treatment. Will make further plans, if and when she feels stronger and feels up to coming in for an exam and discussion. I also advised them to set a follow-up with Urology the same day to make it convenient for her since she has to come in via ambulance. She will return in a couple of weeks for a follow-up visit, sooner if they so desire. All their questions were answered to their satisfaction. 30 minutes were spent coordinating her care including the tele visit, review of labs, review of imaging and counseling the patient. Thanks for the consult, Will follow along with you, CC: Dr. Ortiz. Dr. Heaton. - Time Spent With Patient Time Spent with Patient (in minutes): 30
== END 2022-12-18 | disposition home or self-care (01) ==
LOC: HO.ONC 13:40
PROVIDERS: PCP Internal Medicine; Visit Provider Internal Medicine Medical Oncology
DX: C67.9 Malignant neoplasm of bladder, unspecified (principal)
CPT/HCPCS: Q3014

== ENCOUNTER 2022-12-11 16:46 | Emergency (ER) | payer MEDICARE, MEDICAID, SELFPAY ==
--- NOTE | ~2022-12-11 | XR_ITS ---
EXAMINATION: XR CHEST CLINICAL INFORMATION: Altered mental status COMPARISON: Chest x-ray 06/08/2022 TECHNIQUE: 2 views of the chest were obtained. FINDINGS: The lungs are well-expanded with patchy opacity seen right upper and bilateral lower lobes slightly greater on the right side. The right upper lobe opacity may be a large nodule measuring 2.4 x 1.5 cm. There is platelike atelectasis left midlung. Heart size is enlarged. Pulmonary vascularity is normal. Mild spondylosis throughout dorsal spine. XR/XR chest 2V IMPRESSION: Patchy opacity right upper lobe, bilateral lower lobes question developing infiltrate versus underlying lesions. Correlate with CT chest
[2022-12-11 16:56] VITALS: BP 122/65; PULSE 70; O2SAT 95; BMI 20.1
[2022-12-11 17:11] VITALS: BP 125/71; BP 126/87; PULSE 59; PULSE 70; RESP 18; O2SAT 97; BMI 20.1
--- NOTE | 2022-12-11 17:27 | ED.AMS ---
HPI - Altered Mental Status General Chief Complaint: Altered Mental Status Stated Complaint: bilateral leg swelling Time Seen by Provider: 12/11/22 16:59 Source: patient Mode of arrival: ambulatory Limitations: altered mental status History of Present Illness HPI narrative: 87-year-old female long term resident initial call was for swollen legs with patient was found to have altered mental status the family says have been times in the past the patient is concerned that could have UTI patient does have a history of a bladder mass patient is unable to tell me why she is here she denies cough fever chest pain nausea vomiting or diarrhea. MD complaint: altered mental status Related Data Home Medications Medication Instructions Recorded Confirmed lisinopril 10 mg tablet 1 tab PO BID 05/26/22 06/08/22 acetaminophen 325 mg tablet 650 mg PO TID 06/08/22 06/08/22 amlodipine 2.5 mg tablet 2.5 mg PO DAILY 06/08/22 06/08/22 Previous Rx's Medication Instructions Recorded cholecalciferol (vitamin D3) 50 50 mcg PO DAILY 90 days #90 tabs 12/25/21 mcg (2,000 unit) tablet aspirin 81 mg tablet,delayed 81 mg PO DAILY #30 tabs 02/24/22 release atorvastatin 40 mg tablet 40 mg PO BEDTIME #30 tabs 02/24/22 clopidogrel 75 mg tablet 75 mg PO DAILY #30 tabs 02/24/22 polyvinyl alcohol 1.4 % eye drops 2 drp ophthalmic (eye) Q4H PRN Dry 06/05/22 (Artificial Tears (polyvinyl Eyes #15 mL alcohol)) cefuroxime axetil 250 mg tablet 250 mg PO BID uti 7 days #14 tabs 06/09/22 Allergies Allergy/AdvReac Type Severity Reaction Status Date / Time No Known Allergies Allergy Verified 01/14/22 11:34 Review of Systems Review of Systems: Review of systems: General: Patient denies any fever chills recent illness or falls Musculoskeletal: Denies back pain or body aches or other injuries HEENT: denies headache, runny nose, ear pain Respiratory: denies shortness of breath, cough Cardiovascular: no chest pain or palpitations : denies dysuria, frequency Abdomen: no nausea vomiting denies abdominal pain Extremities: no swelling, no pain Skin: no diaphoresis Yes all other systems are reviewed and are negative Neurologic: Reports confusion Psychiatric: Psychiatric: Reports confusion PMFSH Past Medical History Medical History Benign essential hypertension Lumbar degenerative disc disease Pure hypercholesterolemia Vitamin D deficiency Surgical History History of eye surgery Family History Family History Other Family history non-contributory Social History Social History Household Members: None Housing: House Do you presently have visiting nurse or other home services: No Alcohol intake: never Patient Tobacco Use Status: Never used Tobacco e-Cigarette/Vaping Use: Never Used Second Hand Smoke Exposure: Yes Advance Directives: Yes Advance Directives on File: Yes Advance Directives Date on File: 06/06/22 service: No Current occupational status: retired Cognitive needs: No Hearing needs: No Vision needs: No Physical Exam ED Vital Signs: Vital Signs - 24 hr 12/11/22 17:11 Pulse Rate 70 Respiratory Rate 18 Blood Pressure 125/71 Pulse Oximetry 97 Oxygen Delivery Method Room Air BMI result Body Mass Index 20.1 Const General: cooperative, healthy appearing, no acute distress and confusion Orientation/consciousness: confusion Limitations: altered mental status HENMT Head: Yes normal to inspection and Yes atraumatic Ears: hearing grossly normal bilaterally General nose exam: Normal external nose present Face and sinus: Yes normal facial exam Eyes General: appearance normal, both eyes and all related structures EOM: EOMs intact bilaterally Neck Neck: Yes normal visual inspection and Yes no meningeal signs Resp Effort & Inspection: normal respiratory effort and no respiratory distress Auscultation: clear to auscultation bilaterally Cardio Rate: regular rate Heart sounds: S1 normal heart sound present and S2 normal heart sound present GI Inspection: Yes normal to inspection and No distended Palpation (GI): Soft to palpation, nontender, no guarding and not rigid Other: Cueva catheter in place, appears a little far out General: Yes no CVA tenderness Back/Spine/Pelvis Back: no CVA tenderness Skin Rashes: no rashes Wounds: no wounds Neuro General: tone normal, no meningeal signs and confusion Gait exam (Neuro): Normal gait present Extrem General: Yes normal to inspection Medications Administered Discontinued Medications Generic Name Dose Route Start Last Admin Trade Name Freq PRN Reason Stop Dose Admin Sodium Chloride 1,000 mls @ 999 mls/hr 12/11/22 17:30 12/11/22 18:13 Ns IV 12/11/22 18:30 999 mls/hr .Q1H1M ARTURO Administration Ceftriaxone Sodium 1 gm/ 50 mls @ 100 mls/hr 12/11/22 18:17 12/11/22 18:40 Sodium Chloride IV 12/11/22 18:46 100 mls/hr ONCE ONE Administration Medical Decision Making Medical Decision Making [facility] Narrative: Patient did have UTI was given Rocephin here patient could be sent back to the long term on Keflex. The sister came into the room and was very adamant relating previous 6 months story of May the patient was sent from our hospital to this long term in all the frustrations that had that do not want to go back to long term I explained to give her her have physical therapy and case management see them but I can not guarantee that they will be a place tomorrow for them they refused to go back to the long term and will wait out here for case management physical therapy tomorrow. Differential Diagnosis Differential Diagnoses: The differential diagnosis associated with the presentation includes Urine tract infection patient has no signs of trauma there is no reports of fall the [facility] do not think this patient needs workup for head injury or bleed injury patient has had this in the past with UTI will get a chest x-ray make sure there is no pneumonia on check electrolytes Admission/Observation Consideration of admission/observation: Escalation of care including admission/observation considered Lab Data [facility] Lab Attestation statement: I reviewed the patient's lab results. 12/11/22 17:49 12/11/22 17:49 Labs: Lab Results 12/11/22 12/11/22 12/11/22 Range/Units 17:49 17:49 17:49 WBC 7.8 (4.8-10.8) X10*3/uL RBC 3.38 L (4.20-5.50) X10*6/uL Hgb 9.6 L (12.0-16.0) g/dl Hct 29.8 L (37.0-47.0) % MCV 88.2 (80.0-98.0) fL MCH 28.4 (27.0-33.0) pg MCHC 32.2 (31.0-35.0) g/dl RDW 14.8 (11.0-16.0) % Plt Count 266 D (160-400) X10*3/uL MPV 9.1 L (9.4-12.3) fL Immature Gran % (Auto) 0.5 H (0.0-0.4) % Neut % (Auto) 82.4 H (45-73) % Lymph % (Auto) 8.5 L (20-40) % Mcpherson % (Auto) 6.4 (2-11) % Eos % (Auto) 1.7 (0-4) % Baso % (Auto) 0.5 (0-2) % Lymph # (Auto) 0.7 L (1.2-4.9) X10*3/uL Mcpherson # (Auto) 0.5 (0.1-1.2) X10*3/uL Eos # (Auto) 0.1 (0.0-0.4) X10*3/uL Baso # (Auto) 0.0 (0.0-0.2) X10*3/uL Abs Immat Gran (auto) 0.04 H (0.00-0.03) X10*3/uL Absolute Neuts (auto) 6.4 (2.0-8.3) x10*3/uL Absolute Nucleated RBC 0.000 (0.0-0.012) X10*3/uL Nucleated RBC % (auto) 0.0 (0.0-0.2) /100WBC Sodium 142 (135-145) mmol/L Potassium 4.3 (3.3-5.1) mmol/L Chloride 110 H (96-108) mmol/L Carbon Dioxide 23 (22-29) mmol/L Anion Gap 13 (12-20) BUN 34 H (9-16) mg/dL Creatinine 0.59 (0.5-1.4) mg/dL Estim Creat Clear Calc 54.9 Estimated GFR > 60 Random Glucose 87 (60-115) mg/dL Calcium 9.6 D (8.4-10.2) mg/dL Total Bilirubin 1.0 (0.0-1.0) mg/dL Direct Bilirubin 0.3 (0.0-0.5) mg/dL AST 39 H (5-31) U/L ALT 28 (0-31) U/L Alkaline Phosphatase 120 H (39-117) U/L B-Natriuretic Peptide (<100) pg/mL Total Protein 5.5 L (6.5-8.0) g/dL Albumin 3.1 L (3.5-5.0) g/dL Lipase 24 (8-78) U/L Urine Color Urine Appearance Urine pH (5.0-9.0) Ur Specific [place] (1.005-1.025) Urine Protein (Neg-Trace) mg/dL Urine Glucose (UA) (Negative) mg/dL Urine Ketones (Negative) mg/dL Urine Blood (Negative) Urine Nitrite (Negative) Ur Leukocyte Esterase (Negative) Urine RBC (0-2) /HPF Urine WBC (0-5) /HPF Ur Squamous Epith Cells (0-2) /HPF Urine Bacteria (None Seen) Hyaline Casts (0-2) /LPF COVID-19 (ALEYDA) Negative (Negative) COVID-19 Clin Com See Note 12/11/22 12/11/22 Range/Units 17:49 17:49 WBC (4.8-10.8) X10*3/uL RBC (4.20-5.50) X10*6/uL Hgb (12.0-16.0) g/dl Hct (37.0-47.0) % MCV (80.0-98.0) fL MCH (27.0-33.0) pg MCHC (31.0-35.0) g/dl RDW (11.0-16.0) % Plt Count (160-400) X10*3/uL MPV (9.4-12.3) fL Immature Gran % (Auto) (0.0-0.4) % Neut % (Auto) (45-73) % Lymph % (Auto) (20-40) % Mcpherson % (Auto) (2-11) % Eos % (Auto) (0-4) % Baso % (Auto) (0-2) % Lymph # (Auto) (1.2-4.9) X10*3/uL Mcpherson # (Auto) (0.1-1.2) X10*3/uL Eos # (Auto) (0.0-0.4) X10*3/uL Baso # (Auto) (0.0-0.2) X10*3/uL Abs Immat Gran (auto) (0.00-0.03) X10*3/uL Absolute Neuts (auto) (2.0-8.3) x10*3/uL Absolute Nucleated RBC (0.0-0.012) X10*3/uL Nucleated RBC % (auto) (0.0-0.2) /100WBC Sodium (135-145) mmol/L Potassium (3.3-5.1) mmol/L Chloride (96-108) mmol/L Carbon Dioxide (22-29) mmol/L Anion Gap (12-20) BUN (9-16) mg/dL Creatinine (0.5-1.4) mg/dL Estim Creat Clear Calc Estimated GFR Random Glucose (60-115) mg/dL Calcium (8.4-10.2) mg/dL Total Bilirubin (0.0-1.0) mg/dL Direct Bilirubin (0.0-0.5) mg/dL AST (5-31) U/L ALT (0-31) U/L Alkaline Phosphatase (39-117) U/L B-Natriuretic Peptide 78 (<100) pg/mL Total Protein (6.5-8.0) g/dL Albumin (3.5-5.0) g/dL Lipase (8-78) U/L Urine Color Dark Yellow Urine Appearance Turbid Urine pH 5.5 (5.0-9.0) Ur Specific [place] 1.020 (1.005-1.025) Urine Protein 100 (2+) H (Neg-Trace) mg/dL Urine Glucose (UA) Negative (Negative) mg/dL Urine Ketones Trace (Negative) mg/dL Urine Blood Moderate (2+) H (Negative) Urine Nitrite Positive H (Negative) Ur Leukocyte Esterase Large (3+) H (Negative) Urine RBC 11-20 H (0-2) /HPF Urine WBC >50 H (0-5) /HPF Ur Squamous Epith Cells 3-5 (0-2) /HPF Urine Bacteria 4+ (None Seen) Hyaline Casts 3-5 (0-2) /LPF COVID-19 (ALEYAD) (Negative) COVID-19 Clin Com Radiology Impression Discussion of test interpretation with radiology: I have reviewed the radiologist's reading. External Record Review External record reviewed: Inpatient record, Prior outpatient labs, Primary care record and Outside ED record I did review the transfer sheet from the long term as well as patient's medications do not have anything that requires a level patient does have a history of a bladder mass that was found that could be complicating her story. Chronic Conditions Patient?s care impacted by: Cancer Social Determinants Patient?s care significantly limited by Social Determinants of Health including: Other Social Determinant of Health Patient has some mild dementia and is altered which could lead to change in her care. Discharge Plan Discharge Clinical Impression: Urinary tract infection Patient Disposition: Still a Patient Prescriptions: No Action cholecalciferol (vitamin D3) 50 mcg (2,000 unit) tablet 50 mcg PO DAILY 90 Days Qty: 90 12RF aspirin 81 mg tablet,delayed release (DR/EC) 81 mg PO DAILY Qty: 30 5RF Hold Instructions: Resume on 06/11/22. clopidogrel 75 mg tablet 75 mg PO DAILY Qty: 30 5RF Hold Instructions: Resume on 06/11/22. atorvastatin 40 mg tablet 40 mg PO BEDTIME Qty: 30 5RF lisinopril 10 mg tablet 1 tab PO BID polyvinyl alcohol [Artificial Tears (polyvin alc)] 1.4 % Drops 2 drp ophthalmic (eye) Q4H PRN (Reason: Dry Eyes) Qty: 15 0RF acetaminophen 325 mg Tablet 650 mg PO TID amlodipine 2.5 mg Tablet 2.5 mg PO DAILY cefuroxime axetil 250 mg tablet 250 mg PO BID 7 Days Qty: 14 0RF
[2022-12-11 17:54] LABS: MANUAL DIFF FLAG NO
[2022-12-11 17:56] LABS: Basophils Percent Auto 0.5 % (0-2); Eosinophils Absolute Auto 0.1 X10*3/uL (0.0-0.4); Eosinophils Percent Auto 1.7 % (0-4); Hematocrit 29.8 % (37.0-47.0); Hemoglobin 9.6 g/dl (12.0-16.0); Imm Gran Abs Auto 0.04 X10*3/uL (0.00-0.03); Imm Gran Pct Auto 0.5 % (0.0-0.4); Lymphocytes Absolute Auto 0.7 X10*3/uL (1.2-4.9); Lymphocytes Percent Auto 8.5 % (20-40); Mean Corpuscular HGB Conc 32.2 g/dl (31.0-35.0); Mean Corpuscular Hemoglobin 28.4 pg (27.0-33.0); Mean Corpuscular Volume 88.2 fL (80.0-98.0); Mean Platelet Volume 9.1 fL (9.4-12.3); Monocytes Absolute Auto 0.5 X10*3/uL (0.1-1.2); Monocytes Percent Auto 6.4 % (2-11); Neutrophils Absolute Auto 6.4 x10*3/uL (2.0-8.3); Neutrophils Percent Auto 82.4 % (45-73); Platelet Count 266 X10*3/uL (160-400); Red Blood Count 3.38 X10*6/uL (4.20-5.50); Red Cell Distribution Width 14.8 % (11.0-16.0); White Blood Count 7.8 X10*3/uL (4.8-10.8)
[2022-12-11 18:01] LABS: Appearance Urine Turbid; Color Urine Dark Yellow; Glucose Urine UA Negative (Negative); Leukocyte Esterase Urine Large (3+) (Negative); Nitrite Urine Positive (Negative); PH 5.5 (5.0-9.0); UMIC TRIGGER UACC YES; Urine Blood Moderate (2+) (Negative); Urine Ketones Trace mg/dL (Negative); Urine Protein 100 (2+) mg/dL (Neg-Trace)
[2022-12-11 18:08] LABS: COVID-19 Test Negative (Negative); IDNOW Serial# 9DB6401D
[2022-12-11 18:13] LABS: Alanine Aminotransferase 28 U/L (0-31); Albumin Level 3.1 g/dL (3.5-5.0); Alkaline Phosphatase 120 U/L (39-117); Anion Gap 13 (12-20); Aspartate Amino Transferase 39 U/L (5-31); Bilirubin Direct 0.3 mg/dL (0.0-0.5); Blood Urea Nitrogen 34 mg/dL (9-16); Calcium 9.6 mg/dL (8.4-10.2); Carbon Dioxide 23 mmol/L (22-29); Chloride 110 mmol/L (96-108); Creatinine Clr Calc Pharmacy 54.9; Estimated Glomerular Filt Rate > 60; Glucose Random 87 mg/dL (60-115); Lipase 24 U/L (8-78); Potassium 4.3 mmol/L (3.3-5.1); Sodium 142 mmol/L (135-145); Total Protein 5.5 g/dL (6.5-8.0)
[2022-12-11] MEDS: 0.9 % Sodium Chloride 1,000 ML 999 ML IV (18:13)
[2022-12-11 18:17] LABS: B Type Natriuretic Peptide 78 pg/mL (<100)
[2022-12-11 18:18] LABS: Bacteria Urine 4+ (None Seen); UACC Culture Trigger YES; WBC Urine >50 /HPF (0-5)
[2022-12-11] MEDS: cefTRIAXone sodium 1 GM in 0.9 % Sodium Chloride 50 ML IV (18:40)
[2022-12-11 20:11] VITALS: BP 140/81; PULSE 85; RESP 16; TEMP 36.6; O2SAT 98
[2022-12-11 22:02] VITALS: BP 126/79; PULSE 89; RESP 18; TEMP 36.6; O2SAT 96
--- NOTE | 2022-12-11 22:55 | MHC.CM.ED ---
PT pending. Pt with UTI with AMS. Normally patient A&Ox3. Pt came from [facility]. No paperwork. Son is unsure of patient status at facility. Said she was there for STR, but has been there since May per family. Was also at [facility]. Son tells CM his mother has received 2 extensions from [facility], with the latest being end of December. CM ? group home care. No one at facility at this time to verify. SECURITY PATROL DRIVER Zeus Sehyla ([phone]). Family is very displeased with care at facility. Son states he has been telling people at facility to check her for a UTI, as she gets confused with them, and he feels they ignored him. Family feels that care is poor and they do not want her to go back if possible. Pt was ambulating in May, but is now non ambulatory and uses a wheelchair. Family is hopeful that STR will be recommended, although CM had long conversation with family regarding expectations and lack of LTC beds in the area. Sister asking about caring for patient at home/ CM explained that if the patient is total care, then it would be impossible for her to care for her alone. Family cannot pay for 24/7 care. Son will call [facility] with questions about [facility]. Family aware that if they choose home with [facility] care, that patient would need to return to the facility pending home arrangements. They understand. They also understand that local LTC beds are very hard to come by and if LTC is needed and they don't want patient to return to facility, then she might be placed in [facility] or [facility]. CM will reach out to son/HCP Teo Cr ([phone]) in the morning after PT eval. HCP#2 Tracey Donahue ([phone]). MOLST on file. DNR/DNI. CM will follow for discharge planning.
[2022-12-12 01:52] VITALS: BP 105/61; PULSE 86; RESP 20; TEMP 36.4; O2SAT 97
[2022-12-12 03:57] VITALS: BP 90/55; PULSE 88; RESP 16; TEMP 36.6; O2SAT 93
--- NOTE | 2022-12-12 04:54 | PC.NURSE ---
Patient is a nepalese speaking patient alert to self only. Patient resting comfortably in no apparent distress or discomfort. Periwick in place. Medicated as per MAR. No noted issues pertaining to swallowing. Plan for case management PT eval in the morning.
[2022-12-12 06:00] VITALS: BP 98/68; PULSE 93; RESP 13; TEMP 36.7; O2SAT 91
[2022-12-12 06:35] VITALS: BP 102/63
--- NOTE | 2022-12-12 09:45 | PC.NURSE ---
Pt repositioned in bed, pillows given. Speaking belarusian and german in the room.
--- NOTE | 2022-12-12 09:46 | PHA.MEDREC ---
Pharmacy Consult ? Medication Reconciliation Pharmacy has completed the medication reconciliation.
[2022-12-12 10:00] VITALS: BP 83/60; PULSE 96; RESP 14; O2SAT 92
--- NOTE | 2022-12-12 11:03 | MHC.CM.ED ---
Addendum entered by Audrey Zavala 12/12/22 12:12: [facility] 130[facility]. Original Note: Patient remains in ER. Physical therapy was unable to get patient to participate in eval. No skills indicated at this time. Referral made to [facility]. Jude has reached out and spoke with patient's son/HCP, Teo. T/W spoke with Teo via telephone at [phone]. Teo is not sure if patient should return to [facility] or if another facility could be found. T/W reiterated no LTC beds have been available locally and that patients have been placed in the [place] or [place] areas. Clinical findings explained to Teo. Teo requesting to speak to provider. Blanche CUMMINGS has been asked to speak with Teo. Continue to monitor for d/c needs.
== END 2022-12-12 13:55 | disposition skilled nursing facility (03) ==
PROVIDERS: Emergency Provider Student in an Organized Health Care Education/Training Program; PCP Internal Medicine
DX: N39.0 Urinary tract infection, site not specified (principal); B96.89 Other specified bacterial agents as the cause of diseases classified elsewhere; Z20.822 Contact with and (suspected) exposure to COVID-19; I10 Essential (primary) hypertension; E78.00 Pure hypercholesterolemia, unspecified; C67.9 Malignant neoplasm of bladder, unspecified; C78.00 Secondary malignant neoplasm of unspecified lung; Z79.02 Long term (current) use of antithrombotics/antiplatelets; Z79.899 Other long term (current) drug therapy
CPT/HCPCS: 36415; 71046; 80048; 80076; 81001; 83690; 83880; 85025; 87086; 87088; 87186; 87635; 96361; 96374; 99284; J0696

== ENCOUNTER 2022-12-16 16:47 | Inpatient (IN) | payer MEDICARE, MEDICAID, SELFPAY ==
[2022-12-16] VITALS (7 sets, daily range): BP systolic 100–139; BP diastolic 59–82; PULSE 67–81; RESP 16–22; TEMP 33.4–37; O2SAT 92–98; BMI 20.3
--- NOTE | ~2022-12-16 | CT_ITS ---
EXAMINATION: CT CHEST WITHOUT CONTRAST CLINICAL INFORMATION: Hypoxia. COMPARISON: Chest radiograph earlier today. TECHNIQUE: Multidetector volumetric CT imaging of the chest was done. Axial MIP volume rendering provided. Sagittal and coronal reformatted images were obtained. This CT examination was performed using dose optimization techniques as appropriate, variously including the following: *Automated exposure control *Adjustment of mA and/or kV according to patient size (this includes techniques or standardized protocols for targeted exams where dose is matched to indication/reason for exam; i.e. extremities or head) *Use of iterative reconstruction technique DLP: 213 mGy-cm FINDINGS: LUNGS: Innumerable bilateral solid pulmonary nodules and masses, for example a 3 cm mass in the right upper lobe (5:121), a 1.9 cm nodule in the right upper lobe (5:205) and a 1.7 cm nodule in the left upper lobe (5:180). Large bilateral pleural effusions with associated compressive atelectasis versus consolidative opacities in the lower lobes. The trachea and mainstem bronchi are patent. MEDIASTINUM: Normal heart size. Trace amount of pericardial fluid. Mediastinal lymphadenopathy, for instance a 1.5 x 1.6 cm right paratracheal lymph node (3:22). Evaluation of the hilar structures, including hilar lymphadenopathy, is very limited in the absence of IV contrast. Heterogeneous thyroid parenchyma. CORONARY ARTERY CALCIFICATION: Coronary artery calcifications are noted. PLEURA: As above, large bilateral pleural effusions. There is a 4.1 x 2 cm posterior mediastinal versus pleural-based mass (3:21). No pneumothorax. AXILLA: There is a 1.6 cm skin nodule (8:3) in the right interpectoral region. UPPER ABDOMEN: No significant abnormality in this limited noncontrast examination. OSSEOUS STRUCTURES: No acute or aggressive appearing osseous abnormalities. CT/CT chest wo IV con IMPRESSION: Complex examination. Innumerable pulmonary nodules and masses as well as mediastinal lymphadenopathy and large bilateral pleural effusions are concerning for malignancy. A superimposed infectious or inflammatory process is not excluded. Recommend pulmonary oncology consultation to determine further management. Nonspecific 1.6 cm skin nodule in the right intrapectoral region at the level of the lower sternum, correlate with physical examination.
--- NOTE | ~2022-12-16 | XR_ITS ---
EXAMINATION: XR CHEST CLINICAL INFORMATION: Sepsis. COMPARISON: Chest radiograph 12/11/2022. TECHNIQUE: Frontal view of the chest was obtained. FINDINGS: Multifocal patchy and nodular-like opacities. Bibasilar denser airspace opacities. Small bilateral pleural effusions. No pneumothorax. Stable prominence of the cardiomediastinal silhouette. XR/XR chest 1V IMPRESSION: Worsening pulmonary aeration with increased multifocal patchy and nodular-like opacities, as well as increased bibasilar consolidative opacities and associated bilateral pleural effusions. Findings are suspicious for an atypical multifocal infection, septic emboli are not excluded in the appropriate clinical context for which further evaluation with a chest CT could be obtained if deemed appropriate. Recommend a follow-up imaging after treatment to rule out malignancy.
--- NOTE | 2022-12-16 17:33 | PC.NURSE ---
[facility] for increased confusion and weakness x 1wk and was started on antibiotic for uti the same time. her antibiotic was changed to a different antibiotic.
--- NOTE | 2022-12-16 17:45 | ECG_ITS ---
Test Reason : weakness Blood Pressure : / mmHG Vent. Rate : 070 BPM Atrial Rate : 070 BPM P-R Int : 240 ms QRS Dur : 082 ms QT Int : 442 ms P-R-T Axes : 025 027 001 degrees QTc Int : 477 ms Sinus rhythm with 1st degree A-V block Nonspecific T wave abnormality Abnormal ECG When compared with ECG of 25-MAY-2022 15:36, Premature atrial complexes are no longer Present WV interval has increased Vent. rate has decreased BY 34 BPM Referred By: Nohemi Bazan Electronically Signed By:JOLLY CANNON MD
--- NOTE | 2022-12-16 18:01 | ED_ITS ---
HPI - Altered Mental Status General Chief Complaint: Altered Mental Status Stated Complaint: INREASED WEAKNESS Time Seen by Provider: 12/16/22 17:03 Source: family Mode of arrival: wheelchair Limitations: altered mental status History of Present Illness HPI narrative: Patient comes to the emergency room via EMS from a [facility]. The family reports that a week ago, patient was diagnosed with a UTI, patient was being treated with Keflex. Over last 4 days, the patient's family has noticed that the patient has become more lethargic and not making any sense when she speaks. According to the records from the facility, they realized that the bacteria growing in the patient's urine is resistant to cephalosporins, she was about to start Levaquin. But instead, patient was brought to emergency room for further evaluation and treatment. Patient is unable to give any significant history, patient to altered. Related Data Home Medications Medication Instructions Recorded Confirmed lisinopril 10 mg tablet 1 tab PO BID 05/26/22 12/16/22 amlodipine 2.5 mg tablet 2.5 mg PO DAILY 06/08/22 12/16/22 mirtazapine 7.5 mg tablet 7.5 mg PO BEDTIME 12/12/22 12/16/22 tramadol 50 mg tablet 25 mg PO BID PRN pain 12/12/22 12/16/22 Lactobacillus acidophilus 1 tab PO BID 12/16/22 12/16/22 (Acidophilus chewable tablet) acetaminophen 325 mg tablet 975 mg PO TID 12/16/22 12/16/22 aspirin 81 mg tablet,delayed 81 mg PO DAILY 12/16/22 12/16/22 release cephalexin 500 mg capsule 500 mg PO QID 12/16/22 12/16/22 cholecalciferol (vitamin D3) 50 50 mcg PO DAILY 12/16/22 12/16/22 mcg (2,000 unit) tablet levofloxacin 250 mg tablet 250 mg PO DAILY 12/16/22 12/16/22 multivitamin 1 tab PO DAILY 12/16/22 12/16/22 polyvinyl alcohol 1.4 % eye drops 2 drp ophthalmic (eye) Q4H PRN Dry 12/16/22 12/16/22 (Artificial Tears (polyvinyl Eyes alcohol)) Previous Rx's Medication Instructions Recorded atorvastatin 40 mg tablet 40 mg PO BEDTIME #30 tabs 02/24/22 clopidogrel 75 mg tablet 75 mg PO DAILY #30 tabs 02/24/22 Allergies Allergy/AdvReac Type Severity Reaction Status Date / Time No Known Allergies Allergy Verified 12/16/22 17:20 Review of Systems Review of Systems: Yes Unobtainable due to mental condition [facility] Past Medical History Medical History (Updated 12/16/22 @ 21:45 by Nohemi Bazan MD) Abdominal pain, suprapubic Benign essential hypertension Bladder tumor Lumbar degenerative disc disease Palpitations Pure hypercholesterolemia Vitamin D deficiency Surgical History History of eye surgery Family History Family History Other Family history non-contributory Social History Social History Household Members: None Housing: House Do you presently have visiting nurse or other home services: No Alcohol intake: never Patient Tobacco Use Status: Never used Tobacco Smoked in Last 30 Days: No e-Cigarette/Vaping Use: Never Used Second Hand Smoke Exposure: Yes Use of substances other than those prescribed or required for medical reasons: No Advance Directives: Yes Advance Directives on File: Yes Advance Directives Date on File: 06/06/22 service: No Current occupational status: retired Cognitive needs: No Hearing needs: No Vision needs: No Physical Exam ED Vital Signs: Vital Signs - 24 hr 12/16/22 16:57 12/16/22 17:36 12/16/22 17:45 Temperature 92.7 F L Pulse Rate 67 68 Respiratory Rate 16 18 Blood Pressure 118/73 Pulse Oximetry 92 93 Oxygen Delivery Method Nasal Cannula Nasal Cannula Oxygen Flow Rate 2 12/16/22 20:05 12/16/22 21:13 Temperature 98.3 F Pulse Rate 68 69 Respiratory Rate 22 H 18 Blood Pressure 100/59 L 117/69 Pulse Oximetry 92 98 Oxygen Delivery Method Room Air Room Air Oxygen Flow Rate BMI result Body Mass Index 20.3 Const Other: Appearance: Alert. No acute distress, awake, not speaking, not following directions Eyes: Pupils equal, round and reactive to light. ENT: Pharynx normal. Neck: Normal inspection. Neck supple. No lymph nodes noted. No crepitus CVS: Normal heart rate and rhythm. Pulses normal. Normal S1 and S2 Respiratory: No respiratory distress. Breath sounds normal. No Wheezing. No rales Abdomen: Soft and nontender. No rigidity. No distention. Skin: Skin warm and dry. Normal skin color. Normal skin turgor. Extremities: No lower extremity edema. No Lacerations. No Rash Neuro: Unable to participating cranial nerve assessment Psych: calm, cooperative, Course Course Course Narrative: -17:57 I was informed by the patient's nurse that the patient has a rectal temperature of 92.7 degrees. Blood pressure 118/73. -patient has been started on IV fluids and Levaquin. Per patient's previous labs from December 11, patient may be treated with Levaquin. Patient resistant to cephalosporins. Medications Administered Discontinued Medications Generic Name Dose Route Start Last Admin Trade Name Freq PRN Reason Stop Dose Admin Sodium Chloride 2,000 mls @ 999 mls/hr 12/16/22 17:57 12/16/22 21:13 Ns IVCONT 12/16/22 19:57 Infused .Q2H1M ONE Infusion Levofloxacin 500 mg in 100 mls @ 100 mls/hr 12/16/22 17:58 12/16/22 21:13 Levaquin IV 12/16/22 18:57 Infused ONCE ONE Infusion Medical Decision Making Medical Decision Making [facility] Narrative: -urinalysis is positive for UTI. Patient received IV fluids and antibiotic. -patient's blood pressure has been stable, temperature improved to 98 -urinalysis positive as expected. Patient has already been treated. -his x-ray shows multifocal patchy and nodular opacities, bilateral pleural effusions. Findings suspicious for typical multifocal infection. However, patient does not have any URI symptoms -discussed the patient with Dr. Fisher , patient being admitted Differential Diagnosis Differential Diagnoses: The differential diagnosis associated with the presentation includes (UTI, pyelonephritis) Admission/Observation Consideration of admission/observation: Escalation of care including admission/observation considered Consult Healthcare Provider Management of the patient was discussed with: Hospitalist Lab Data [facility] Lab Attestation statement: I reviewed the patient's lab results. 12/16/22 18:07 12/16/22 18:07 Labs: Lab Results 12/16/22 12/16/22 12/16/22 Range/Units 18:07 18:07 18:07 WBC 5.8 (4.8-10.8) X10*3/uL RBC 3.35 L (4.20-5.50) X10*6/uL Hgb 9.5 L (12.0-16.0) g/dl Hct 29.8 L (37.0-47.0) % MCV 89.0 (80.0-98.0) fL MCH 28.4 (27.0-33.0) pg MCHC 31.9 (31.0-35.0) g/dl RDW 16.2 H (11.0-16.0) % Plt Count 193 D (160-400) X10*3/uL MPV 9.1 L (9.4-12.3) fL Immature Gran % (Auto) 0.7 H (0.0-0.4) % Neut % (Auto) 82.7 H (45-73) % Lymph % (Auto) 9.9 L (20-40) % [place] % (Auto) 5.0 (2-11) % Eos % (Auto) 1.2 (0-4) % Baso % (Auto) 0.5 (0-2) % Lymph # (Auto) 0.6 L (1.2-4.9) X10*3/uL [place] # (Auto) 0.3 (0.1-1.2) X10*3/uL Eos # (Auto) 0.1 (0.0-0.4) X10*3/uL Baso # (Auto) 0.0 (0.0-0.2) X10*3/uL Abs Immat Gran (auto) 0.04 H (0.00-0.03) X10*3/uL Absolute Neuts (auto) 4.8 (2.0-8.3) x10*3/uL Absolute Nucleated RBC 0.000 (0.0-0.012) X10*3/uL Nucleated RBC % (auto) 0.0 (0.0-0.2) /100WBC PT 10.8 (10.0-13.1) SEC INR 0.9 (0.9-1.1) Sodium 146 H (135-145) mmol/L Potassium 3.6 (3.3-5.1) mmol/L Chloride 113 H (96-108) mmol/L Carbon Dioxide 25 (22-29) mmol/L Anion Gap 12 (12-20) BUN 35 H (9-16) mg/dL Creatinine 0.46 L (0.5-1.4) mg/dL Estim Creat Clear Calc 73.4 Estimated GFR > 60 Random Glucose 85 (60-115) mg/dL Lactic Acid (0.5-2.0) mmol/L Calcium 9.6 (8.4-10.2) mg/dL Magnesium 1.8 (1.6-2.6) mg/dL Total Bilirubin 1.1 H (0.0-1.0) mg/dL Direct Bilirubin 0.4 (0.0-0.5) mg/dL AST 48 H (5-31) U/L ALT 32 H (0-31) U/L Alkaline Phosphatase 111 (39-117) U/L Total Protein 5.1 L (6.5-8.0) g/dL Albumin 2.8 L (3.5-5.0) g/dL Urine Color Urine Appearance Urine pH (5.0-9.0) Ur Specific [place] (1.005-1.025) Urine Protein (Neg-Trace) mg/dL Urine Glucose (UA) (Negative) mg/dL Urine Ketones (Negative) mg/dL Urine Blood (Negative) Urine Nitrite (Negative) Ur Leukocyte Esterase (Negative) Urine RBC (0-2) /HPF Urine WBC (0-5) /HPF Ur Squamous Epith Cells (0-2) /HPF Urine Bacteria (None Seen) Hyaline Casts (0-2) /LPF 12/16/22 12/16/22 Range/Units 18:07 19:02 WBC (4.8-10.8) X10*3/uL RBC (4.20-5.50) X10*6/uL Hgb (12.0-16.0) g/dl Hct (37.0-47.0) % MCV (80.0-98.0) fL MCH (27.0-33.0) pg MCHC (31.0-35.0) g/dl RDW (11.0-16.0) % Plt Count (160-400) X10*3/uL MPV (9.4-12.3) fL Immature Gran % (Auto) (0.0-0.4) % Neut % (Auto) (45-73) % Lymph % (Auto) (20-40) % [place] % (Auto) (2-11) % Eos % (Auto) (0-4) % Baso % (Auto) (0-2) % Lymph # (Auto) (1.2-4.9) X10*3/uL [place] # (Auto) (0.1-1.2) X10*3/uL Eos # (Auto) (0.0-0.4) X10*3/uL Baso # (Auto) (0.0-0.2) X10*3/uL Abs Immat Gran (auto) (0.00-0.03) X10*3/uL Absolute Neuts (auto) (2.0-8.3) x10*3/uL Absolute Nucleated RBC (0.0-0.012) X10*3/uL Nucleated RBC % (auto) (0.0-0.2) /100WBC PT (10.0-13.1) SEC INR (0.9-1.1) Sodium (135-145) mmol/L Potassium (3.3-5.1) mmol/L Chloride (96-108) mmol/L Carbon Dioxide (22-29) mmol/L Anion Gap (12-20) BUN (9-16) mg/dL Creatinine (0.5-1.4) mg/dL Estim Creat Clear Calc Estimated GFR Random Glucose (60-115) mg/dL Lactic Acid 0.6 (0.5-2.0) mmol/L Calcium (8.4-10.2) mg/dL Magnesium (1.6-2.6) mg/dL Total Bilirubin (0.0-1.0) mg/dL Direct Bilirubin (0.0-0.5) mg/dL AST (5-31) U/L ALT (0-31) U/L Alkaline Phosphatase (39-117) U/L Total Protein (6.5-8.0) g/dL Albumin (3.5-5.0) g/dL Urine Color Dark Yellow Urine Appearance Turbid Urine pH 5.5 (5.0-9.0) Ur Specific [place] 1.025 (1.005-1.025) Urine Protein 100 (2+) H (Neg-Trace) mg/dL Urine Glucose (UA) Negative (Negative) mg/dL Urine Ketones 15 (Negative) mg/dL Urine Blood Large (3+) H (Negative) Urine Nitrite Positive H (Negative) Ur Leukocyte Esterase Large (3+) H (Negative) Urine RBC >20 H (0-2) /HPF Urine WBC >50 H (0-5) /HPF Ur Squamous Epith Cells 0-2 (0-2) /HPF Urine Bacteria 2+ (None Seen) Hyaline Casts 3-5 (0-2) /LPF Critical Care Time Critical Care Time Critical Care Time: Yes Total Critical Care Time: 60 Attestation: I have personally provided critical care time. Time includes review of lab data, radiology results, discussion with consultants, and monitoring for potential decompensation. Intervention performed as documented. Discharge Plan Discharge Clinical Impression: Sepsis secondary to UTI Patient Disposition: Admitted As Inpatient
[2022-12-16] MEDS: 0.9 % Sodium Chloride 2,000 ML 999 ML IVCONT (18:09)
[2022-12-16 18:13] LABS: MANUAL DIFF FLAG NO
[2022-12-16 18:19] LABS: Basophils Percent Auto 0.5 % (0-2); Eosinophils Absolute Auto 0.1 X10*3/uL (0.0-0.4); Eosinophils Percent Auto 1.2 % (0-4); Hematocrit 29.8 % (37.0-47.0); Hemoglobin 9.5 g/dl (12.0-16.0); Imm Gran Abs Auto 0.04 X10*3/uL (0.00-0.03); Imm Gran Pct Auto 0.7 % (0.0-0.4); Lymphocytes Absolute Auto 0.6 X10*3/uL (1.2-4.9); Lymphocytes Percent Auto 9.9 % (20-40); Mean Corpuscular HGB Conc 31.9 g/dl (31.0-35.0); Mean Corpuscular Hemoglobin 28.4 pg (27.0-33.0); Mean Platelet Volume 9.1 fL (9.4-12.3); Monocytes Absolute Auto 0.3 X10*3/uL (0.1-1.2); Neutrophils Absolute Auto 4.8 x10*3/uL (2.0-8.3); Neutrophils Percent Auto 82.7 % (45-73); Platelet Count 193 X10*3/uL (160-400); Red Blood Count 3.35 X10*6/uL (4.20-5.50); Red Cell Distribution Width 16.2 % (11.0-16.0); White Blood Count 5.8 X10*3/uL (4.8-10.8)
[2022-12-16] MEDS: levoFLOXacin/D5W 500 MG/100 ML PIGGYBACK 100 MG IV (18:20)
[2022-12-16 18:22] LABS: INTERNATIONAL NORM RATIO 0.9 (0.9-1.1); Prothrombin Time 10.8 SEC (10.0-13.1)
[2022-12-16 18:24] LABS: Lactic Acid 0.6 mmol/L (0.5-2.0)
[2022-12-16 18:28] LABS: Alanine Aminotransferase 32 U/L (0-31); Albumin Level 2.8 g/dL (3.5-5.0); Alkaline Phosphatase 111 U/L (39-117); Anion Gap 12 (12-20); Aspartate Amino Transferase 48 U/L (5-31); Bilirubin Direct 0.4 mg/dL (0.0-0.5); Bilirubin Total 1.1 mg/dL (0.0-1.0); Blood Urea Nitrogen 35 mg/dL (9-16); Calcium 9.6 mg/dL (8.4-10.2); Carbon Dioxide 25 mmol/L (22-29); Chloride 113 mmol/L (96-108); Creatinine Clr Calc Pharmacy 73.4; Estimated Glomerular Filt Rate > 60; Glucose Random 85 mg/dL (60-115); Magnesium 1.8 mg/dL (1.6-2.6); Potassium 3.6 mmol/L (3.3-5.1); Sodium 146 mmol/L (135-145); Total Protein 5.1 g/dL (6.5-8.0)
--- NOTE | 2022-12-16 18:57 | PC.NURSE ---
straight cath done. urine sample obtained.
[2022-12-16 19:14] LABS: Appearance Urine Turbid; Color Urine Dark Yellow; Glucose Urine UA Negative (Negative); Leukocyte Esterase Urine Large (3+) (Negative); Nitrite Urine Positive (Negative); PH 5.5 (5.0-9.0); Specific Gravity - Urine 1.025 (1.005-1.025); UMIC TRIGGER UACC YES; Urine Blood Large (3+) (Negative); Urine Ketones 15 mg/dL (Negative); Urine Protein 100 (2+) mg/dL (Neg-Trace)
[2022-12-16 20:26] LABS: Bacteria Urine 2+ (None Seen); RBC Urine >20 /HPF (0-2); Squamous Epithelial Cell Urine 0-2 /HPF (0-2); UACC Culture Trigger YES; WBC Urine >50 /HPF (0-5)
--- NOTE | 2022-12-16 21:06 | PHA.MEDREC ---
Pharmacy Consult ? Medication Reconciliation Pharmacy has completed the medication reconciliation. Patient came with medication list from [facility]. Tali Oates, VenessaD
--- NOTE | 2022-12-16 23:12 | P.HPHOSP_ITS ---
History of Present Illness Date of Service: 12/16/22 Chief Complaint: altered mental status 87-year-old Syriac speaking only, history is obtained from the help of her family. Patient has a history of HTN, HLD, bladder tumor, CVA, who comes in rehab nursing facility for altered mental status. Patient family reported that about a week ago patient was diagnosed with a UTI, patient placed on Keflex, but it appears that his she has had worsening altered mental status. Upon checking urine cultures it appears the patient culture showed resistance to cephalosporin. Patient has become more lethargic and altered wound speaking with her family. Given her altered mental status patient was sent to the ED. I am unable to get much more history from the patient as she is sleeping, arousable but unable to provide much history. Unable to obtain review of system Due to mental status On arrival to the ED patient found to have a temp of 92.7 degrees, she was warmed up in the ED with a temp now of 97.4, labs significant for WBC of 5.8, hemoglobin of 9.5 which appears to be chronic, creatinine of 0.46, BNP of 114, UA shows nitrites, leukocyte Estrace, WBC Chest x-ray shows bilateral pleural effusion, a subsequent chest CT was obtained which showed innumerable pulmonary nodules and masses as well as mediastinal lymphadenopathy enlarged bilateral pleural effusion concerning for malignancy. A superimposed infection or inflammatory process not excluded, note after reviewing EMR patient does have recently diagnosed bladder tumor in July of 2022. A discussion was had with her family by Oncology team, and a decision was made to have no treatment at that time Review of Systems Review of Systems: Yes Unobtainable due to mental condition and Unobtainable due to mental status [facility] Medical History Abdominal pain, suprapubic Benign essential hypertension Bladder tumor Lumbar degenerative disc disease Palpitations Pure hypercholesterolemia Vitamin D deficiency Family History Other Family history non-contributory Surgical History History of eye surgery Social History Household Members: None Housing: House Do you presently have visiting nurse or other home services: No Alcohol intake: never Patient Tobacco Use Status: Never used Tobacco Smoked in Last 30 Days: No e-Cigarette/Vaping Use: Never Used Second Hand Smoke Exposure: Yes Use of substances other than those prescribed or required for medical reasons: No Advance Directives: Yes Advance Directives on File: Yes Advance Directives Date on File: 06/06/22 service: No Current occupational status: retired Cognitive needs: No Hearing needs: No Vision needs: No Meds Allergies Allergy/AdvReac Type Severity Reaction Status Date / Time No Known Allergies Allergy Verified 12/16/22 17:20 Active Medications: Current Medications Acetaminophen (Acetaminophen 325 Mg Tablet) 650 mg PO Q6H PRN PRN Reason: Pain, Mild (Pain Scale 1-3) Enoxaparin Sodium (Enoxaparin Sodium 40 Mg/0.4 Ml Syringe) 40 mg SUBCUT Q24H ARTURO Levofloxacin (Levaquin) 750 mg in 150 mls @ 100 mls/hr IV Q24H ARTURO Lactated Ringer's (Lr) 1,000 mls @ 80 mls/hr IVCONT .[id number] ARTURO Ondansetron HCl (Ondansetron Hcl 4 Mg/2 Ml Vial) 4 mg IVPUSH Q8H PRN PRN Reason: Nausea and Vomiting Pharmacy Consult (Consult Rx Perform Med Rec) 1 each MISCELLANE ONCE PRN PRN Reason: Consult order Sodium Chloride (0.9 % Sodium Chloride Flush 3 Ml Syringe) 3 ml IVFLUSH QSHIFT ARTURO Home Medications Medication Instructions Recorded Confirmed Last Taken Type lisinopril 10 mg tablet 1 tab PO BID 05/26/22 12/16/22 Unknown History amlodipine 2.5 mg tablet 2.5 mg PO DAILY 06/08/22 12/16/22 Unknown History mirtazapine 7.5 mg tablet 7.5 mg PO BEDTIME 12/12/22 12/16/22 Unknown History tramadol 50 mg tablet 25 mg PO BID PRN pain 12/12/22 12/16/22 Unknown History Lactobacillus acidophilus 1 tab PO BID 12/16/22 12/16/22 Unknown History (Acidophilus chewable tablet) acetaminophen 325 mg tablet 975 mg PO TID 12/16/22 12/16/22 Unknown History aspirin 81 mg tablet,delayed 81 mg PO DAILY 12/16/22 12/16/22 Unknown History release cephalexin 500 mg capsule 500 mg PO QID 12/16/22 12/16/22 Unknown History cholecalciferol (vitamin D3) 50 50 mcg PO DAILY 12/16/22 12/16/22 Unknown History mcg (2,000 unit) tablet levofloxacin 250 mg tablet 250 mg PO DAILY 12/16/22 12/16/22 Unknown History multivitamin 1 tab PO DAILY 12/16/22 12/16/22 Unknown History polyvinyl alcohol 1.4 % eye drops 2 drp ophthalmic (eye) Q4H PRN Dry 12/16/22 12/16/22 Unknown History (Artificial Tears (polyvinyl Eyes alcohol)) Physical Exam Vital Signs and Narrative: Vital Signs: Last Vital Signs Temp 92.1 F L 12/16/22 22:02 Pulse 77 12/16/22 22:02 Resp 18 12/16/22 22:02 BP 113/73 12/16/22 22:02 Pulse Ox 92 12/16/22 22:02 O2 Del Method Nasal Cannula 12/16/22 22:02 O2 Flow Rate 2 12/16/22 22:02 Oxygen Flow Rate 2 12/16/22 16:57 BMI result Body Mass Index 20.3 Const: Other: sleeping but arousable, unable to give much history, unable to assess orientation General: cooperative and no acute distress Eyes: General: appearance normal, both eyes and all related structures Resp: Effort & Inspection: normal respiratory effort Auscultation: clear to auscultation bilaterally Cardio: Rate: regular rate Rhythm: regular rhythm GI: Palpation (GI): Soft to palpation Auscultation: normal bowel sounds Skin: General skin exam: no rashes or lesions noted Extrem: General: Yes normal to inspection and Yes no pedal edema Results Labs 12/16/22 18:07 12/16/22 18:07 Labs: Laboratory Results - last 24 hr 12/16/22 12/16/22 12/16/22 18:07 18:07 18:07 MCV 89.0 MCH 28.4 MCHC 31.9 RDW 16.2 H Plt Count 193 D MPV 9.1 L Immature Gran % (Auto) 0.7 H Neut % (Auto) 82.7 H Lymph % (Auto) 9.9 L [place] % (Auto) 5.0 Eos % (Auto) 1.2 Baso % (Auto) 0.5 Lymph # (Auto) 0.6 L [place] # (Auto) 0.3 Eos # (Auto) 0.1 Baso # (Auto) 0.0 Abs Immat Gran (auto) 0.04 H Absolute Neuts (auto) 4.8 Absolute Nucleated RBC 0.000 Nucleated RBC % (auto) 0.0 PT 10.8 INR 0.9 Anion Gap 12 Estim Creat Clear Calc 73.4 Estimated GFR > 60 Random Glucose 85 Lactic Acid Calcium 9.6 Magnesium 1.8 Total Bilirubin 1.1 H Direct Bilirubin 0.4 AST 48 H ALT 32 H Alkaline Phosphatase 111 Total Protein 5.1 L Albumin 2.8 L Urine Color Urine Appearance Urine pH Ur Specific [place] Urine Protein Urine Glucose (UA) Urine Ketones Urine Blood Urine Nitrite Ur Leukocyte Esterase Urine RBC Urine WBC Ur Squamous Epith Cells Urine Bacteria Hyaline Casts 12/16/22 12/16/22 18:07 19:02 MCV MCH MCHC RDW Plt Count MPV Immature Gran % (Auto) Neut % (Auto) Lymph % (Auto) [place] % (Auto) Eos % (Auto) Baso % (Auto) Lymph # (Auto) [place] # (Auto) Eos # (Auto) Baso # (Auto) Abs Immat Gran (auto) Absolute Neuts (auto) Absolute Nucleated RBC Nucleated RBC % (auto) PT INR Anion Gap Estim Creat Clear Calc Estimated GFR Random Glucose Lactic Acid 0.6 Calcium Magnesium Total Bilirubin Direct Bilirubin AST ALT Alkaline Phosphatase Total Protein Albumin Urine Color Dark Yellow Urine Appearance Turbid Urine pH 5.5 Ur Specific [place] 1.025 Urine Protein 100 (2+) H Urine Glucose (UA) Negative Urine Ketones 15 Urine Blood Large (3+) H Urine Nitrite Positive H Ur Leukocyte Esterase Large (3+) H Urine RBC >20 H Urine WBC >50 H Ur Squamous Epith Cells 0-2 Urine Bacteria 2+ Hyaline Casts 3-5 Imaging Radiologist's Impressions: Impressions Chest X-Ray 12/16/22 19:10 IMPRESSION: Worsening pulmonary aeration with increased multifocal patchy and nodular-like opacities, as well as increased bibasilar consolidative opacities and associated bilateral pleural effusions. Findings are suspicious for an atypical multifocal infection, septic emboli are not excluded in the appropriate clinical context for which further evaluation with a chest CT could be obtained if deemed appropriate. Recommend a follow-up imaging after treatment to rule out malignancy. 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 (3) Bladder tumor: Status: Acute (4) Encephalopathy: Status: Acute Plan 87-year-old female with recently diagnosed bladder cancer who presents to the hospital with altered mental status found to have acute UTI resistant PO medica tions given outpatient # acute UTI - hypothermic, tachycardic, meeting sepsis criteria with the source being UTI - failed outpatient therapy due to resistance - has encephalopathy - will treat with IV antibiotics based on sensitivity - follow repeat cultures # likely lung Mets - chest CTs showing multiple masses and lymphadenopathy concerning for mets in the setting of bladder cancer - not in respiratory distress, satting 95% on room air - patient on antibiotics for above, which will cover any underlying lung infection - patient's family had elected no treatment for cancer in the past - can follow-up outpatient - can consider discharged to hospice once patient's acute encephalopathy resolves # encephalopathy - likely metabolic in the setting of acute infection - will treat with IV antibiotics - monitor mentation # bladder cancer - diagnosed in 07/2022 - family had decided against treatment given her poor underlying condition - to follow-up with Heme-Onc /urology /possible discharge to hospice # hypertension - soft/stable - will hold amlodipine at this time DVT prophylaxis: Lovenox given need for IV antibiotics patient will require minimum 2 nights inpatient hospital stay for further management and monitoring Time Spent With Patient Time: Total time managing care of this patient today ____ minutes. Quality Stroke Does the patient have a stroke diagnosis?: No VTE Prior VTE?: No VTE Risk Level:: Medical - moderate - high VTE Device Contraindication: Treatment Not Indicated VTE Drug Contraindication: N/A - Med Ordered
--- NOTE | 2022-12-16 23:24 | MHC.EDTECH ---
i took over this assignment at 2300p... vitals were taken and entered and a purewick was applied
[2022-12-17 01:03] LABS: B Type Natriuretic Peptide 114 pg/mL (<100)
[2022-12-17] MEDS: 0.9 % Sodium Chloride Flush 3 ML SYRINGE IVFLUSH ×2 (01:05→07:47)
[2022-12-17] MEDS: Lactated Ringers 1,000 ML 80 ML IVCONT ×2 (01:05→17:12)
[2022-12-17] MEDS: Enoxaparin Sodium 40 MG/0.4 ML SYRINGE SUBCUT ×2 (01:05→21:01)
[2022-12-17 04:12] VITALS: BP 119/85; PULSE 73; RESP 16; TEMP 36.3; O2SAT 95
[2022-12-17 06:34] LABS: MANUAL DIFF FLAG NO
[2022-12-17 06:36] LABS: Basophils Percent Auto 0.7 % (0-2); Eosinophils Absolute Auto 0.1 X10*3/uL (0.0-0.4); Hematocrit 26.8 % (37.0-47.0); Hemoglobin 8.5 g/dl (12.0-16.0); Imm Gran Abs Auto 0.03 X10*3/uL (0.00-0.03); Imm Gran Pct Auto 0.7 % (0.0-0.4); Lymphocytes Absolute Auto 0.7 X10*3/uL (1.2-4.9); Lymphocytes Percent Auto 15.4 % (20-40); Mean Corpuscular HGB Conc 31.7 g/dl (31.0-35.0); Mean Corpuscular Hemoglobin 28.4 pg (27.0-33.0); Mean Corpuscular Volume 89.6 fL (80.0-98.0); Monocytes Absolute Auto 0.3 X10*3/uL (0.1-1.2); Monocytes Percent Auto 7.1 % (2-11); Neutrophils Absolute Auto 3.3 x10*3/uL (2.0-8.3); Neutrophils Percent Auto 74.1 % (45-73); Platelet Count 148 X10*3/uL (160-400); Red Blood Count 2.99 X10*6/uL (4.20-5.50); Red Cell Distribution Width 15.9 % (11.0-16.0); White Blood Count 4.5 X10*3/uL (4.8-10.8)
[2022-12-17 06:52] LABS: Anion Gap 8 (12-20); Blood Urea Nitrogen 28 mg/dL (9-16); Calcium 9.1 mg/dL (8.4-10.2); Carbon Dioxide 25 mmol/L (22-29); Chloride 116 mmol/L (96-108); Creatinine Clr Calc Pharmacy 80.3; Estimated Glomerular Filt Rate > 60; Glucose Random 67 mg/dL (60-115); Potassium 3.4 mmol/L (3.3-5.1); Sodium 146 mmol/L (135-145)
--- NOTE | 2022-12-17 08:14 | PC.NURSE ---
sleeping and easily woken, no complaints, hospialist to bedside for eval, pt reported feeling good , resp even and unlabored, sr on monitor, skin warm pale and dry
--- NOTE | 2022-12-17 09:40 | P.PNIM_ITS ---
Subjective Subjective Date of Service: 12/17/22 Interval History: f/u on uti, encephalopathy interval history: remains very confused Physical Exam Vital Signs: Vital Signs: Last Vital Signs Temp 97.4 F 12/17/22 04:12 Pulse 73 12/17/22 04:12 Resp 16 12/17/22 04:12 BP 119/85 12/17/22 04:12 Pulse Ox 95 12/17/22 04:12 O2 Del Method Room Air 12/17/22 04:12 O2 Flow Rate 2 12/16/22 23:23 Oxygen Flow Rate 2 12/16/22 16:57 BMI result Body Mass Index 20.3 Const: Other: General: frail, hardly audible when speaking, confused Resp: CTA bilateral CVS: S1,S2,RRR GI: +BS, NT, no distention Skin: No rash Neuro: motor grossly intact Psych: appropriate affect Objective Data Active Medications Acetaminophen (Acetaminophen 325 Mg Tablet) 650 mg PO Q6H PRN PRN Reason: Pain, Mild (Pain Scale 1-3) Artificial Tears (Artificial Tears 15 Ml Drops) 2 drop EYE-BOTH Q4H PRN PRN Reason: Dry Eyes Aspirin (Aspirin Enteric Coated 81 Mg Tablet.Dr) 81 mg PO DAILY [facility] Atorvastatin Calcium (Atorvastatin Calcium 40 Mg Tablet) 40 mg PO BEDTIME [facility] Clopidogrel Bisulfate (Clopidogrel Bisulfate 75 Mg Tablet) 75 mg PO DAILY [facility] Enoxaparin Sodium (Enoxaparin Sodium 40 Mg/0.4 Ml Syringe) 40 mg SUBCUT BEDTIME [facility] Last Admin: 12/17/22 01:05 Dose: 40 mg Documented By: CARLIE Levofloxacin (Levaquin) 750 mg in 150 mls @ 100 mls/hr IV Q24H [facility] Lactated Ringer's (Lr) 1,000 mls @ 80 mls/hr IVCONT .[id number] [facility] Last Admin: 12/17/22 01:05 Dose: 80 mls/hr Documented By: CARLIE Lisinopril (Lisinopril 10 Mg Tablet) 10 mg PO BID [facility]; Protocol Mirtazapine (Mirtazapine 7.5 Mg Tablet) 7.5 mg PO BEDTIME [facility] Multivitamins/Vitamin C (Multivitamin Tablet) 1 tab PO DAILY [facility] Ondansetron HCl (Ondansetron Hcl 4 Mg/2 Ml Vial) 4 mg IVPUSH Q8H PRN PRN Reason: Nausea and Vomiting Pharmacy Consult (Consult Rx Perform Med Rec) 1 each MISCELLANE ONCE PRN PRN Reason: Consult order Sodium Chloride (0.9 % Sodium Chloride Flush 3 Ml Syringe) 3 ml IVFLUSH QSHIFT [facility] Last Admin: 12/17/22 07:47 Dose: 3 ml Documented By: ZOILA Vitamin D (Cholecalciferol (Vitamin D3) 25 Mcg Tablet) 50 mcg PO DAILY [facility] Labs 12/17/22 06:16 12/17/22 06:16 Labs: Laboratory Results - last 24 hr 12/16/22 12/16/22 12/16/22 18:07 18:07 18:07 MCV 89.0 MCH 28.4 MCHC 31.9 RDW 16.2 H Plt Count 193 D MPV 9.1 L Immature Gran % (Auto) 0.7 H Neut % (Auto) 82.7 H Lymph % (Auto) 9.9 L Valley % (Auto) 5.0 Eos % (Auto) 1.2 Baso % (Auto) 0.5 Lymph # (Auto) 0.6 L [place] # (Auto) 0.3 Eos # (Auto) 0.1 Baso # (Auto) 0.0 Abs Immat Gran (auto) 0.04 H Absolute Neuts (auto) 4.8 Absolute Nucleated RBC 0.000 Nucleated RBC % (auto) 0.0 PT 10.8 INR 0.9 Anion Gap 12 Estim Creat Clear Calc 73.4 Estimated GFR > 60 Random Glucose 85 Lactic Acid Calcium 9.6 Magnesium 1.8 Total Bilirubin 1.1 H Direct Bilirubin 0.4 AST 48 H ALT 32 H Alkaline Phosphatase 111 B-Natriuretic Peptide Total Protein 5.1 L Albumin 2.8 L Urine Color Urine Appearance Urine pH Ur Specific [place] Urine Protein Urine Glucose (UA) Urine Ketones Urine Blood Urine Nitrite Ur Leukocyte Esterase Urine RBC Urine WBC Ur Squamous Epith Cells Urine Bacteria Hyaline Casts 12/16/22 12/16/22 12/17/22 18:07 19:02 00:35 MCV MCH MCHC RDW Plt Count MPV Immature Gran % (Auto) Neut % (Auto) Lymph % (Auto) Valley % (Auto) Eos % (Auto) Baso % (Auto) Lymph # (Auto) Valley # (Auto) Eos # (Auto) Baso # (Auto) Abs Immat Gran (auto) Absolute Neuts (auto) Absolute Nucleated RBC Nucleated RBC % (auto) PT INR Anion Gap Estim Creat Clear Calc Estimated GFR Random Glucose Lactic Acid 0.6 Calcium Magnesium Total Bilirubin Direct Bilirubin AST ALT Alkaline Phosphatase B-Natriuretic Peptide 114 H Total Protein Albumin Urine Color Dark Yellow Urine Appearance Turbid Urine pH 5.5 Ur Specific [place] 1.025 Urine Protein 100 (2+) H Urine Glucose (UA) Negative Urine Ketones 15 Urine Blood Large (3+) H Urine Nitrite Positive H Ur Leukocyte Esterase Large (3+) H Urine RBC >20 H Urine WBC >50 H Ur Squamous Epith Cells 0-2 Urine Bacteria 2+ Hyaline Casts 3-5 12/17/22 12/17/22 06:16 06:16 MCV 89.6 MCH 28.4 MCHC 31.7 RDW 15.9 Plt Count 148 L MPV 9.0 L Immature Gran % (Auto) 0.7 H Neut % (Auto) 74.1 H Lymph % (Auto) 15.4 L Valley % (Auto) 7.1 Eos % (Auto) 2.0 Baso % (Auto) 0.7 Lymph # (Auto) 0.7 L Valley # (Auto) 0.3 Eos # (Auto) 0.1 Baso # (Auto) 0.0 Abs Immat Gran (auto) 0.03 Absolute Neuts (auto) 3.3 Absolute Nucleated RBC 0.000 Nucleated RBC % (auto) 0.0 PT INR Anion Gap 8 L Estim Creat Clear Calc 80.3 Estimated GFR > 60 Random Glucose 67 Lactic Acid Calcium 9.1 Magnesium Total Bilirubin Direct Bilirubin AST ALT Alkaline Phosphatase B-Natriuretic Peptide Total Protein Albumin Urine Color Urine Appearance Urine pH Ur Specific [place] Urine Protein Urine Glucose (UA) Urine Ketones Urine Blood Urine Nitrite Ur Leukocyte Esterase Urine RBC Urine WBC Ur Squamous Epith Cells Urine Bacteria Hyaline Casts Microbiology Microbiology Results: Microbiology 12/16/22 Unknown Urine Culture - Preliminary Urine clean catch - Urine south top No growth to date. Assessment and Plan (1) Encephalopathy: Status: Acute (2) Acute UTI: Status: Acute Plan 87-year-old female with recently diagnosed bladder cancer who presents to the hospital with altered mental status found to have acute UTI resistant PO? medications given outpatient #? Sepsis d/t UTI, clinically responding to therapy -recent culture shows the following C braakii M.I.C. RX --------- --- Ceftriaxone 32 R Ertapenem <=0.12 S Gentamicin <=1 S Levofloxacin <=0.12 S Nitrofurantoin <=16 S Trimethoprim/Sulfamethoxazole <=20 S -continue Levaquin and change to PO at discharge #? encephalopathy d/t UTI, -underlying treatment as above -CT head r/o mets #? ? Lung mass-? chest CTs showing multiple masses and lymphadenopathy concerning for mets in the setting of bladder cancer -? not in respiratory distress, satting? 95% on room air -? patient's family had elected no treatment for cancer in the past -? can follow-up outpatient -? will offer family hospice #? bladder cancer-? diagnosed in 07/2022, family has opted for no treatment #? hypertension--BP normal, Norvasc on hold. ?DVT prophylaxis:? Lovenox Poor prognosis Need for inpatent: Encephalopathy, UTI needing IV Abx will discus with family and also discuss code I called son Teo, no answer Time Spent With Patient Time: Total time managing care of this patient today ____ minutes. Quality Stroke Does the patient have a stroke diagnosis?: No VTE Prior VTE?: No VTE Risk Level:: Medical - moderate - high VTE Device Contraindication: Treatment Not Indicated VTE Drug Contraindication: N/A - Med Ordered
--- NOTE | 2022-12-17 10:15 | PC.NURSE ---
Family at bedside this morning and concerned as the patient is more lethargic this morning than she was last night. Patient is waking slightly with verbal stimulation. Provider made aware of findings and that family is at bedside. Provider to come down to see patient.
--- NOTE | 2022-12-17 10:25 | PC.NURSE ---
Unable to give patient oral medications this morning due to mentality. Spoke with Dr Linda about this and he okayed medications being held this morning.
[2022-12-17 12:00] VITALS: BP 105/70; PULSE 70; RESP 18; TEMP 33.6; O2SAT 95
--- NOTE | 2022-12-17 12:29 | PC.NURSE ---
Vitals obtained on patient, temp noted to be 92.5f rectally. It was also noted that patient had not voided since this nurse took over care for patient, bladder scan showed 676ml. Provider made aware and an order for a bear hugger blaket and a henry catheter were ordered and done for the patient.
[2022-12-17 14:48] VITALS: PULSE 53; RESP 14; TEMP 34.7
[2022-12-17 16:06] VITALS: BP 107/65; PULSE 87; RESP 24; TEMP 35.6; O2SAT 91
--- NOTE | 2022-12-17 17:23 | PC.NURSE ---
Patient has been more alert and interactive with family at bedside. Bear hugger set to lowest temp and rectal temp now 96.2f. Patient able to follow some commands but is still confused.
[2022-12-17 17:25] VITALS: PULSE 75; RESP 17; TEMP 35.7; O2SAT 94
--- NOTE | 2022-12-17 17:30 | MHC.CM.PN ---
Addendum entered by Mariposa Francisco 12/17/22 18:19: CM had long conversation with Teo/son/HCP regarding his mother's prognosis and hospice referral. Teo is not yet ready to accept referral to hospice at this time. Teo is hopeful that if his mother's recovers from this sepsis/UTI, she will be better and will get stronger. CM did speak with Teo about quality of life. Teo tells CM that he is not ready to consider hospice. Teo does not want to even speak with hospice about there care. No referrals will be placed. Per Teo, patient will return to [facility]. Return referral placed. CM will follow for discharge planning. Original Note: IMM reviewed with HCP 12/17. Pt with AMS. UTI, failed po antibiotics, sepsis, bladder CA with lung mets. DNR/DNR. Provider spoke with son/HCP Teo. May be agreeable to hospice at discharge. No referrals placed. Pt resident of [facility]. [place] Citizen speaking. Total care. Wheelchair/bed bound. HCP on file. Son Teo ([phone]). Follow with MDR's for possible hospice referral. D/C plan: return to facility, possible hospice. Will need transport.
[2022-12-17 20:00] VITALS: BP 115/69; PULSE 80; RESP 17; TEMP 34.8; O2SAT 94
[2022-12-17] MEDS: levoFLOXacin/D5W 750 MG/150 ML PIGGYBACK 100 MG IV (21:01)
[2022-12-18] VITALS (8 sets, daily range): BP systolic 62–99; BP diastolic 38–58; PULSE 69–105; RESP 14–24; TEMP 35.8–37; O2SAT 85–95
--- NOTE | 2022-12-18 01:30 | PM.EVENT ---
Event Note Date of Service: 12/18/22 Event Note: patient hypothermic, back on Cristiana Hugger. Patient also very restless, pulling at oxygen, and IV lines, taking off the Cristiana Hugger. Will give her Zyprexa Time Spent With Patient Time: Total time managing care of this patient today ____ minutes.
[2022-12-18] MEDS: OLANZapine 10 MG VIAL 5 MG IM (02:05)
[2022-12-18 05:01] LABS: Lactic Acid 0.8 mmol/L (0.5-2.0)
[2022-12-18] MEDS: Lactated Ringers 1,000 ML 80 ML IVCONT (06:03)
--- NOTE | 2022-12-18 07:38 | PC.NURSE ---
Addendum entered by Nelda Garza 12/18/22 07:53: Aprroximatly around 04:00 vital signs, pt's BP was 89/52. MD Fisher was notified of the situation. One time order of bolus NS 1,560mls/hr was given to pt. After the NS bolus the pt's BP went up to 99/54. MD Fisher aware of the new BP after the bolus. Will continue to monitor pt's BP. Addendum entered by Nelda Graza 12/18/22 07:47: Pt's rectal temp increased to 96.5F after the bear hugger was placed on the highest temp. Pt was still restless, taking off bear hugger, O2 NC, and missing with IV tubing. MD Fisher was notified of the pt's increased restlessness and one time dose of Zyprexa 5mg IM was ordered. Pt received the one time dose and had no effect on pt afterwards. Will continue to monitor pt's temp and behavior. Original Note: Approximately around 20:30, pt's rectal temp was 94.7F. MD Fisher was notified of the situation. Bear hugger was set on highest temp but pt kept on taking it off. Sitter was needed at bedside for the pt was becoming impulsive, restless, and not following commands due to confusion. [facility] antibiotic was given to pt as well. Will continue to monitor pt's temp.
--- NOTE | 2022-12-18 11:46 | HO.PM.IMPN ---
Subjective Subjective Date of Service: 12/18/22 Interval History: Somnolent/unarousable. Currently on Cristiana Hugger. Review of Systems Unable to obtain Physical Exam Vital Signs: Vital Signs: Last Vital Signs Temp 98.6 F 12/18/22 07:22 Pulse 105 H 12/18/22 07:22 Resp 24 H 12/18/22 07:22 BP 99/58 L 12/18/22 07:22 Pulse Ox 91 L 12/18/22 07:45 O2 Del Method Nasal Cannula 12/18/22 07:45 O2 Flow Rate 5 12/18/22 07:45 Oxygen Flow Rate 2 12/16/22 16:57 BMI result Body Mass Index 20.3 Const: Other: Unarousable Resp: Other: Clear to auscultation bilaterally no rales rhonchi or wheezes Cardio: Other: No S4; positive S1-S2; no S3 murmurs rubs or gallops GI: Other: Soft nontender nondistended bowel sounds x4 quadrants Extrem: Other: No edema Objective Data Active Medications Acetaminophen (Acetaminophen 325 Mg Tablet) 650 mg PO Q6H PRN PRN Reason: Pain, Mild (Pain Scale 1-3) Artificial Tears (Artificial Tears 15 Ml Drops) 2 drop EYE-BOTH Q4H PRN PRN Reason: Dry Eyes Aspirin (Aspirin Enteric Coated 81 Mg Tablet.Dr) 81 mg PO DAILY [facility] Last Admin: 12/18/22 09:28 Dose: Not Given Documented By: OTTONIEL Non-Admin Reason: Lethargic Atorvastatin Calcium (Atorvastatin Calcium 40 Mg Tablet) 40 mg PO BEDTIME [facility] Last Admin: 12/17/22 21:57 Dose: Not Given Documented By: JEREMIAH Non-Admin Reason: NPO Clopidogrel Bisulfate (Clopidogrel Bisulfate 75 Mg Tablet) 75 mg PO DAILY [facility] Last Admin: 12/18/22 09:28 Dose: Not Given Documented By: OTTONIEL Non-Admin Reason: Lthargic Enoxaparin Sodium (Enoxaparin Sodium 40 Mg/0.4 Ml Syringe) 40 mg SUBCUT BEDTIME [facility] Last Admin: 12/17/22 21:01 Dose: 40 mg Documented By: JEREMIAH Levofloxacin (Levaquin) 750 mg in 150 mls @ 100 mls/hr IV Q24H [facility] Last Infusion: 12/17/22 22:41 Dose: 0 mls/hr Documented By: JEREMIAH Lactated Ringer's (Lr) 1,000 mls @ 80 mls/hr IVCONT .[id number] [facility] Last Admin: 12/18/22 06:03 Dose: 80 mls/hr Documented By: JEREMIAH Lisinopril (Lisinopril 10 Mg Tablet) 10 mg PO BID [facility]; Protocol Last Admin: 12/18/22 09:28 Dose: Not Given Documented By: OTTONIEL Non-Admin Reason: Lethargic Multivitamins/Vitamin C (Multivitamin Tablet) 1 tab PO DAILY [facility] Last Admin: 12/18/22 09:28 Dose: Not Given Documented By: OTTONIEL Non-Admin Reason: Lethargic Ondansetron HCl (Ondansetron Hcl 4 Mg/2 Ml Vial) 4 mg IVPUSH Q8H PRN PRN Reason: Nausea and Vomiting Pharmacy Consult (Consult Rx Perform Med Rec) 1 each MISCELLANE ONCE PRN PRN Reason: Consult order Sodium Chloride (0.9 % Sodium Chloride Flush 3 Ml Syringe) 3 ml IVFLUSH QSHIFT [facility] Last Admin: 12/18/22 08:03 Dose: Not Given Documented By: OTTONIEL Non-Admin Reason: IV Running Vitamin D (Cholecalciferol (Vitamin D3) 25 Mcg Tablet) 50 mcg PO DAILY [facility] Last Admin: 12/18/22 09:28 Dose: Not Given Documented By: OTTONIEL Non-Admin Reason: Lethargic Labs 12/17/22 06:16 12/17/22 06:16 Labs: Laboratory Results - last 24 hr 12/18/22 04:35 Lactic Acid 0.8 Microbiology Microbiology Results: Microbiology 12/16/22 18:18 Blood Culture - Preliminary Blood - Venous No growth after 24 hours. 12/16/22 18:07 Blood Culture - Preliminary Blood - Venous No growth after 24 hours. 12/16/22 Unknown Urine Culture - Preliminary Urine clean catch - Urine south top No growth to date. Assessment and Plan (1) Acute UTI: Status: Acute (2) Sepsis secondary to UTI: Status: Acute (3) Benign essential hypertension: Status: Acute (4) Mass of lung: Status: Acute Plan 87-year-old female with recently diagnosed bladder cancer who presents to the hospital with altered mental status found to have acute UTI resistant PO? medications given outpatient 1.Sepsis d/t UTI,(continues to decline) -discussed with son Teo. Patient now DNR DNI -recent culture shows the following C eric M.I.C. RX --------- --- Ceftriaxone 32 R Ertapenem <=0.12 S Gentamicin <=1 S Levofloxacin <=0.12 S Nitrofurantoin <=16 S Trimethoprim/Sulfamethoxazole <=20 S -continue Levaquin and change to PO at discharge 2.Encephalopathy (d/t UTI) -underlying treatment as above 3.Lung mass-? chest CTs showing multiple masses and lymphadenopathy concerning for mets in the setting of bladder cancer -? conservative at this time 4.Bladder cancer-? diagnosed in 07/2022, family has opted for no treatment ?DVT prophylaxis:? Lovenox DNR/DNI Patient's blood pressure trending downward; patient remains unresponsive. Time Spent With Patient Time: Total time managing care of this patient today ____ minutes. Quality Stroke Does the patient have a stroke diagnosis?: No VTE Prior VTE?: No VTE Risk Level:: Medical - moderate - high VTE Device Contraindication: Treatment Not Indicated VTE Drug Contraindication: N/A - Med Ordered
[2022-12-18] MEDS: Lactated Ringers 500 ML 999 ML IV (13:20)
--- NOTE | 2022-12-18 13:59 | PC.NURSE ---
Addendum entered by Shoshana Kimbrough RN 12/18/22 14:34: 1415- BP s/p LR bolus 76/50, temp 97.2 axillary, yousif hugger continue. Dr. Suero made aware. No new orders at this time. Original Note: 0730- Patient vitals temp 98.6 axillary, patient on yousif hugger, pulse 105, RR 24, BP 99/58, 02 87% on 3L NC. O2 increased to 5L, O2 91%. Patient lethargic, arouse to verbal/sternal stimuli. Yousif hugger shut off. Dr. Suero updated on patient status. MD to assess patient. No new orders at this time. 1230- Patient BP 65/38, temp 96.7 axillary. Patient pale. Minimal response to stimuli. Dr. Suero made aware. Patient placed back on yousif hugger, LR bolus ordered and hung per EMAR. Patient son called and at bedside. updating son. No other orders at this time.
[2022-12-18] MEDS: 0.9 % Sodium Chloride Flush 3 ML SYRINGE IVFLUSH (15:35)
[2022-12-18] MEDS: Lactated Ringers 1,000 ML 100 ML IVCONT (15:35)
--- NOTE | 2022-12-18 15:44 | PC.NURSE ---
patient unresponsive,BP 62/38 pulse 69 sat 86% on 5L ,family at bedside,Dr. Suero at bedside also discussing patient condition with family,no new interventions ordered at present
--- NOTE | 2022-12-18 16:46 | PC.NURSE ---
Patient unresponsive,no pulse,no breathing,Dr. Suero called into the room,at bedside ,family at bedside
--- NOTE | 2022-12-18 17:01 | P.DN_ITS ---
Discharge Sum: Prov Provider Primary care physician: Sergey Yadav MD Discharge Sum: Diag Contributing Factors (1) Acute UTI: (2) Sepsis secondary to UTI: (3) Benign essential hypertension: (4) Mass of lung: Discharge Sum: Summary Date and Time Date of admission: 12/16/22 23:05 Date of : 12/18/22 Time of : 16:45 Summary Details: 87-year-old [place] speaking only, history is obtained from the help of her family.? Patient has a history of HTN, HLD, bladder tumor, CVA, who comes in rehab nursing facility for altered mental status.? Patient family reported that about a week ago patient was diagnosed with a UTI, patient placed on Keflex, but it appears that his she has had worsening altered mental status.? Upon checking urine cultures it appears the patient? culture showed resistance to? cephal osporin.? Patient has become more lethargic and altered wound speaking with her family.? Given her altered mental status patient was sent to the ED.On arrival to the ED patient found to have a temp of 92.7 degrees,? she was warmed up in the ED with a temp now of 97.4, ?labs significant for WBC of 5.8, hemoglobin of 9.5 which appears to be chronic, creatinine of 0.46, BNP of 114, UA shows nitrites, leukocyte Estrace, WBC Chest x-ray shows bilateral pleural effusion, a subsequent chest CT was obtained which showed innumerable pulmonary nodules and masses as well as mediastinal lymphadenopathy enlarged bilateral pleural effusion concerning for malignancy.? A superimposed infection or inflammatory process not excluded, Patient admitted to general medical floor; was intermittently hypothermic requiring Cristiana Hugger. Antibiotics were adjusted based on sensitivities. Over the course of to 24 hours prior to her patient continued to decline. Discussion with son; patient made DNR DNI. Patient at 16:45 with family present Additional Data Family: at bedside Attending physician: Fidel Suero, DO
--- NOTE | 2022-12-18 18:27 | PC.NURSE ---
IV removed from both arms,dsd applied
--- NOTE | 2023-01-09 08:11 | P.CDIM_ITS ---
PROVIDER RESPONSE TEXT: To clarify, the appropriate diagnosis supported by the clinical indicators: Hypoxia QUERY TEXT: PHYSICIAN'S DOCUMENTATION REQUEST Date of Query: 01/07/2023 12:31 PM EDT Patient Name: Rashida Olvera Admit Date: 12/17/2022 Dear Fidel Suero, A review of the medical record indicates additional documentation may be needed. Please review below and update the documentation accordingly. Clinical Indicators: Per ER Physician Documentation 12/16/22: no respiratory distress, breath sounds normal SAT on room air 92%, 98% SAT on 2L NC 92%, 93% Per Hospitalist H&P 12/16/22: chest CTs showing multiple masses and lymphadenopathy concerning for mets in the setting of bladder cancer - not in respiratory distress, satting 95% on room air Respiratory rate 14-24 during hospitalization Pulse Oximetry on 12/17/22 91% 3L NC, 12/18/22: 87% 3L NC 12/18/22: 85% room air Please clarify which of the following accurately represents the patient's respiratory status: Acute respiratory failure Please specify if Hypoxic, Hypercapnic, or Hypoxic and hypercapnic Acute respiratory distress Hypoxia Hypoxia Other (explain)Clinically unable to determine (explain) Thank you, Tata Chase RN Use of terms such as suspected, likely, concern for, or probable (associated with a specific diagnosi s that is being evaluated, monitored, or treated as if it exists) are acceptable and can be coded in the inpatient se tting, when documented at the time of discharge. Please use your independent medical judgment in providing your response. THIS QUERY IS PART OF THE PERMANENT MEDICAL RECORD
== END 2022-12-18 17:00 | disposition expired | DRG 871 ==
LOC: HO.ED 21:45 → HO.EDOVER 23:13 → HO.S3 12-17 17:47
PROVIDERS: Admitting Provider Internal Medicine; Emergency Provider Emergency Medicine; PCP Internal Medicine; Visit Provider Hospitalist
DX: A41.9 Sepsis, unspecified organism (principal); G93.41 Metabolic encephalopathy; J96.01 Acute respiratory failure with hypoxia; C78.02 Secondary malignant neoplasm of left lung; J91.0 Malignant pleural effusion; Z16.19 Resistance to other specified beta lactam antibiotics; C77.1 Secondary and unspecified malignant neoplasm of intrathoracic lymph nodes; C78.01 Secondary malignant neoplasm of right lung; C67.9 Malignant neoplasm of bladder, unspecified; Z66 Do not resuscitate; B96.89 Other specified bacterial agents as the cause of diseases classified elsewhere; R68.0 Hypothermia, not associated with low environmental temperature; E78.00 Pure hypercholesterolemia, unspecified; I10 Essential (primary) hypertension; Z86.73 Personal history of transient ischemic attack (TIA), and cerebral infarction without residual deficits; Z79.02 Long term (current) use of antithrombotics/antiplatelets; Z79.82 Long term (current) use of aspirin; Z79.899 Other long term (current) drug therapy
CPT/HCPCS: 36415; 71045; 71250; 80048; 80076; 81001; 81003; 83605; 83735; 83880; 85025; 85610; 87040; 87086; 93005; 99285; C1758; J1650; J1956